=== PATIENT | female | born 1995 | race Caucasian/White ===

== ENCOUNTER 2018-10-03 13:23 | Emergency (ER) | payer OTHER ==
[2018-10-03 13:49] VITALS: TEMP 98.2
[2018-10-03] MEDS ORDERED: SODIUM CHLORIDE 0.9% 1,000 ML IV STA (13:50)
[2018-10-03] MEDS ORDERED: SODIUM CHLORIDE 0.9% 500 ML 500 ML IV STA (13:50)
[2018-10-03 14:40] LABS: Basophils # (A) 0.1 k/uL (0-0.2); Basophils % (A) 1 %; Eosinophils # (A) 0.2 k/uL (0-0.7); Eosinophils % (A) 4 %; HCT 39.6 % (34.0-46.0); HGB 12.9 gm/dL (11.4-16.0); Lymphocytes # (A) 1.5 k/uL (1.0-4.8); Lymphocytes % (A) 28 %; MCH 28.7 pg (25.0-35.0); MCHC 32.6 g/dL (31.0-37.0); MCV 88.2 fL (80.0-100.0); Mean Platelet Volume 6.5; Monocytes # (A) 0.4 k/uL (0-1.0); Monocytes % (A) 6 %; Neutrophils # (A) 3.3 k/uL (1.3-7.7); Neutrophils % (A) 60 %; Platelet Count 371 k/uL (150-450); RBC 4.49 m/uL (3.80-5.40); RDW 12.6 % (11.5-15.5); WBC 5.6 k/uL (3.8-10.6)
[2018-10-03 14:45] LABS: Appearance,Urine Clear (Clear); Bilirubin,Urine Negative (Negative); Blood,Urine Moderate (Negative); Color,Urine Light Red; Glucose,Urine (UA) Negative (Negative); Ketones,Urine Negative (Negative); Leukocyte Esterase,Urine Small (Negative); Nitrite,Urine Negative (Negative); PH, Urine 6.5 (5.0-8.0); Protein,Urine 1+ (Negative); RBC,Urine >182 /hpf (0-5); Specific Gravity,Urine 1.022 (1.001-1.035); Squamous Epithelial Cell,Urine 3 /hpf (0-4); Urobilinogen,Urine <2.0 mg/dL (<2.0); WBC,Urine 7 /hpf (0-5)
[2018-10-03 14:53] LABS: INR 0.9 (<1.2); Partial Thromboplastin Time 26.1 sec (22.0-30.0); Prothrombin Time 9.7 sec (9.0-12.0)
[2018-10-03 14:59] LABS: ALT 39 U/L (9-52); AST 37 U/L (14-36); African American GFR (CKD) >90 (>60 ml/min/1.73 sqM); Alkaline Phosphatase 51 U/L (38-126); Anion Gap 8 mmol/L; Blood Urea Nitrogen 12 mg/dL (7-17); Calcium 9.7 mg/dL (8.4-10.2); Carbon Dioxide 26 mmol/L (22-30); Chloride 106 mmol/L (98-107); Glucose 100 mg/dL (74-99); Potassium 4.3 mmol/L (3.5-5.1); Sodium 140 mmol/L (137-145); Total Bilirubin 0.2 mg/dL (0.2-1.3); Total Protein 6.7 g/dL (6.3-8.2)
--- NOTE | 2018-10-03 15:10 | XR ---
EXAMINATION TYPE: XR chest 2V DATE OF EXAM: 10/03/2018 COMPARISON: NONE HISTORY: Syncope TECHNIQUE: Frontal and lateral views of the chest are obtained. FINDINGS: There is no focal air space opacity, pleural effusion, or pneumothorax seen. The cardiac silhouette size is within normal limits. The osseous structures are intact. IMPRESSION: No acute cardiopulmonary process.
--- NOTE | 2018-10-03 15:17 | CT ---
EXAMINATION TYPE: CT brain jensen fox con DATE OF EXAM: 10/03/2018 COMPARISON: None HISTORY: 22-year-old female syncope CT DLP: 1323.9 mGycm Automated exposure control for dose reduction was used. Technique: Examination of the head was done in axial plane without intravenous contrast. Coronal and sagittal reconstructions performed. CT of the cervical spine was obtained in axial plane without intravenous injection of contrast mater ial. Coronal and sagittal reformatted images were obtained from the axial views for evaluation of f ractures, spinal alignment and canal. FINDINGS: Head: There is no evidence of acute intracranial hemorrhage, acute ischemic changes, mass, mass-effect, or extra-axial fluid collection. There is no effacement of cerebral sulci or basal subarachnoid cister ns. There is no hydrocephalus. There is no midline shift. Winter-white matter distinction is preserv ed. Rightward nasal septal deviation. Orbits and globes are intact. Paranasal sinuses and mastoid air rossy ls are pneumatized. Cervical spine: The alignment of the cervical spine is normal on coronal and reformatted images. There is no cranial vertebral abnormality. Fracture of the cervical spine is not seen. Reverse of the normal cervical frandy dosis probably positional. There is no central spinal canal stenosis. Possible dextro convex scoliosi s versus patient positioning. Sagittal and coronal reformatted images confirm above findings. COMBINED IMPRESSION: 1. No acute intracranial abnormality seen. 2. No acute fracture or malalignment of the cervical spine. Query dextroconvex scoliosis versus patie nt positioning.
[2018-10-03 15:51] VITALS: BP 122/76; PULSE 76; RESP 13
--- NOTE | 2018-10-03 15:51 | ED ---
Syncope HPI - General Chief Complaint: Syncope Stated Complaint: Fall, head injury Time Seen by Provider: 10/03/18 13:50 Source: patient Mode of arrival: ambulatory Limitations: no limitations - History of Present Illness Initial Comments: 22-year-old female presenting today for chief complaint syncope. Patient states she had a similar episode syncope when she was on her period within the last year. Patient states she was evaluated neurologically opposed to cardiovascularly. Patient states she has had previous MRIs and everything has been normal. Patient states she was sitting up on the mirror today just prior to arrival which she felt like she was going to pass out she saw blackness coming from the corners of her eyes and attempted to sit down however she fell hitting the right side of her head. Patient sates she awoke shortly after. Sta kimi she felt normal since she has slight headache. Patient denies a chest pain shortness breath dizziness headache nausea vomiting abdominal pain or any complaints prior to the syncopal episode. Denies experiencing any chest pain when working out. Patient denies any shortness of breath when exerting self. Patient denies any recent surgeries. Patient is not sure if this is related to her period. Denies any specific heavy vaginal bleeding. Remaining review of systems negative upon arrival patient appears well no signs of acute distress. Asymptomatic. - Related Data Allergies Allergy/AdvReac Type Severity Reaction Status Date / Time No Known Allergies Allergy Verified 10/03/18 13:48 Review of Systems ROS Statement: Those systems with pertinent positive or pertinent negative responses have been documented in the HPI. ROS Other: All systems not noted in ROS Statement are negative. Past Medical History Past Medical History: Asthma, Fibromyalgia Additional Past Medical History / Comment(s): ovarian cyst History of Any Multi-Drug Resistant Organisms: None Reported Additional Past Surgical History / Comment(s): wisdom teeth, dental implant Past Psychological History: No Psychological Hx Reported Smoking Status: Never smoker Past Alcohol Use History: Occasional Past Drug Use History: None Reported General Exam - General Exam Comments Initial Comments: General: The patient is awake and alert, in no distress, and does not appear acutely ill. Eye: +3 mm pupils are equal, round and reactive to light, extra-ocular movements are intact. No nystagmus. There is normal conjunctiva bilaterally. No signs of icterus. Ears, nose, mouth and throat: There are moist mucous membranes and no oral lesions. Neck: The neck is supple, there is no tenderness or JVD. Cardiovascular: There is a regular rate and rhythm. No murmur, rub or gallop is appreciated. Respiratory: Lungs are clear to auscultation, respirations are non-labored, breath sounds are equal. No wheezes, stridor, rales, or rhonchi. Gastrointestinal: Soft, non-distended, non-tender abdomen without masses or organomegaly noted. There is no rebound or guarding present. No CVA tenderness. Bowel sounds are unremarkable. Musculoskeletal: Normal ROM, no tenderness. Strength 5/5. Sensation intact. Radial and DP pulses equal bilaterally 2+. Neurological: A&O x 3. CN II-XII intact, There are no obvious motor or sensory deficits. Coordination appears grossly intact. Speech is normal. Skin: Skin is warm and dry and no rashes or lesions are noted. Psychiatric: Cooperative, appropriate mood & affect, normal judgment. Limitations: no limitations Course Vital Signs 10/03/18 10/03/18 10/03/18 13:43 14:20 14:30 Temperature 98.2 F Pulse Rate 85 76 Pulse Rate [ 72 Left] Respiratory 18 16 Rate Blood Pressure 111/78 117/84 Blood Pressure 112/73 [Left Arm Sitting] Blood Pressure 117/84 [Left Arm Standing] Blood Pressure 107/68 [Left Arm Supine] O2 Sat by Pulse 93 L 98 Oximetry 10/03/18 15:30 Temperature Pulse Rate 76 Pulse Rate [ Left] Respiratory 13 Rate Blood Pressure 122/76 Blood Pressure [Left Arm Sitting] Blood Pressure [Left Arm Standing] Blood Pressure [Left Arm Supine] O2 Sat by Pulse 98 Oximetry EKG Findings - EKG Comments: EKG Findings:: A 12-lead EKG was performed and shows the following: Rate is 77bpm, and rhythm is normal sinus. There are normal QRS complexes and normal R- wave progression. ST segments have no elevation or depression, and AL segments appear normal. AL interval 198 ms, QRS jainism 102 ms, QT/QTC 374/423 ms. EKG interpreted myself as well as my attending provider Dr. Noble/Dr. Ledbetter Medical Decision Making - Medical Decision Making Well-appearing 22-year-old female. Patient is currently menstruating. Patient states last time she was syncopal episode as well as treating as well. Patient blood pressure and heart rate within acceptable limits upon arrival. Patient has no complaints. Patient does have history of right-sided head injury. No focal neurological deficits. CT negative for acute intracranial process. As well as a C-spine for acute osseous injury. Patient is no radicular symptoms. EKG no acute findings. No evidence of Brugada or Mxzxb-Blcvmopoc-Bpjhr. No history of that within the family or history of juvenile due to cardiac so urce. Chest x-ray revealed no acute findings. There is no murmur on examination her lower extremity swelling. Patient's lungs are clear to auscultation. Patient has no positive findings on orthostatics. Patient is no abdominal pain or focal symptoms on examination. At this time is unclear the exact etiology patient's syncopal episode. May be due to menstruation. I recommended outpatient further evaluation including a Holter monitor. Patient verbalized understanding patient is agreeable and prefers discharge at this time. Patient was discharged appearing well. I did discuss and review findings provider Dr. Noble - Lab Data Result diagrams: 10/03/18 14:10 10/03/18 14:10 Lab Results 10/03/18 10/03/18 10/03/18 Range/Units 14:10 14:10 14:10 WBC 5.6 (3.8-10.6) k/uL RBC 4.49 (3.80-5.40) m/uL Hgb 12.9 (11.4-16.0) gm/dL Hct 39.6 (34.0-46.0) % MCV 88.2 (80.0-100.0) fL MCH 28.7 (25.0-35.0) pg MCHC 32.6 (31.0-37.0) g/dL RDW 12.6 (11.5-15.5) % Plt Count 371 (150-450) k/uL Neutrophils % 60 % Lymphocytes % 28 % Monocytes % 6 % Eosinophils % 4 % Basophils % 1 % Neutrophils # 3.3 (1.3-7.7) k/uL Lymphocytes # 1.5 (1.0-4.8) k/uL Monocytes # 0.4 (0-1.0) k/uL Eosinophils # 0.2 (0-0.7) k/uL Basophils # 0.1 (0-0.2) k/uL PT 9.7 (9.0-12.0) sec INR 0.9 (<1.2) APTT 26.1 (22.0-30.0) sec Sodium 140 (137-145) mmol/L Potassium 4.3 (3.5-5.1) mmol/L Chloride 106 (98-107) mmol/L Carbon Dioxide 26 (22-30) mmol/L Anion Gap 8 mmol/L BUN 12 (7-17) mg/dL Creatinine 0.57 (0.52-1.04) mg/dL Est GFR (CKD-EPI)AfAm >90 (>60 ml/min/1.73 sqM) Est GFR (CKD-EPI)NonAf >90 (>60 ml/min/1.73 sqM) Glucose 100 H (74-99) mg/dL Calcium 9.7 (8.4-10.2) mg/dL Magnesium 2.0 (1.6-2.3) mg/dL Total Bilirubin 0.2 (0.2-1.3) mg/dL AST 37 H (14-36) U/L ALT 39 (9-52) U/L Alkaline Phosphatase 51 (38-126) U/L Troponin I (0.000-0.034) ng/mL Total Protein 6.7 (6.3-8.2) g/dL Albumin 4.0 (3.5-5.0) g/dL Urine Color Urine Appearance (Clear) Urine pH (5.0-8.0) Ur Specific Ly[place] (1.001-1.035) Urine Protein (Negative) Urine Glucose (UA) (Negative) Urine Ketones (Negative) Urine Blood (Negative) Urine Nitrite (Negative) Urine Bilirubin (Negative) Urine Urobilinogen (<2.0) mg/dL Ur Leukocyte Esterase (Negative) Urine RBC (0-5) /hpf Urine WBC (0-5) /hpf Ur Squamous Epith Cells (0-4) /hpf Urine HCG, Qual (Not Detectd) 10/03/18 10/03/18 10/03/18 Range/Units 14:10 14:10 14:10 WBC (3.8-10.6) k/uL RBC (3.80-5.40) m/uL Hgb (11.4-16.0) gm/dL Hct (34.0-46.0) % MCV (80.0-100.0) fL MCH (25.0-35.0) pg MCHC (31.0-37.0) g/dL RDW (11.5-15.5) % Plt Count (150-450) k/uL Neutrophils % % Lymphocytes % % Monocytes % % Eosinophils % % Basophils % % Neutrophils # (1.3-7.7) k/uL Lymphocytes # (1.0-4.8) k/uL Monocytes # (0-1.0) k/uL Eosinophils # (0-0.7) k/uL Basophils # (0-0.2) k/uL PT (9.0-12.0) sec INR (<1.2) APTT (22.0-30.0) sec Sodium (137-145) mmol/L Potassium (3.5-5.1) mmol/L Chloride (98-107) mmol/L Carbon Dioxide (22-30) mmol/L Anion Gap mmol/L BUN (7-17) mg/dL Creatinine (0.52-1.04) mg/dL Est GFR (CKD-EPI)AfAm (>60 ml/min/1.73 sqM) Est GFR (CKD-EPI)NonAf (>60 ml/min/1.73 sqM) Glucose (74-99) mg/dL Calcium (8.4-10.2) mg/dL Magnesium (1.6-2.3) mg/dL Total Bilirubin (0.2-1.3) mg/dL AST (14-36) U/L ALT (9-52) U/L Alkaline Phosphatase (38-126) U/L Troponin I <0.012 (0.000-0.034) ng/mL Total Protein (6.3-8.2) g/dL Albumin (3.5-5.0) g/dL Urine Color Light Red Urine Appearance Clear (Clear) Urine pH 6.5 (5.0-8.0) Ur Specific Lyons 1.022 (1.001-1.035) Urine Protein 1+ H (Negative) Urine Glucose (UA) Negative (Negative) Urine Ketones Negative (Negative) Urine Blood Moderate H (Negative) Urine Nitrite Negative (Negative) Urine Bilirubin Negative (Negative) Urine Urobilinogen <2.0 (<2.0) mg/dL Ur Leukocyte Esterase Small H (Negative) Urine RBC >182 H (0-5) /hpf Urine WBC 7 H (0-5) /hpf Ur Squamous Epith Cells 3 (0-4) /hpf Urine HCG, Qual Not Detected (Not Detectd) Disposition Clinical Impression: Head injury, Syncope, Menstruation Disposition: HOME SELF-CARE Condition: Good Instructions (If sedation given, give patient instructions): Syncope (ED) Additional Instructions: Please increase fluids. Please follow-up with family doctor in the next 2 days. Please return to emergency room if the symptoms increase or worsen or for any other concerns-including another syncopal episode. Is patient prescribed a controlled substance at d/c from ED?: No Referrals: Nonstaff,Physician [Primary Care Provider] - 1-2 days Time of Disposition: 15:51
== END 2018-10-03 16:12 | disposition home or self-care (01) ==
LOC: EC 13:23
DX: S09.90XA Unspecified injury of head, initial encounter (principal); R55 Syncope and collapse; Z87.42 Personal history of other diseases of the female genital tract; Z98.890 Other specified postprocedural states; W01.10XA Fall on same level from slipping, tripping and stumbling with subsequent striking against unspecified object, initial encounter
CPT/HCPCS: 36415; 70450; 71046; 72125; 80053; 81001; 81025; 83735; 84484; 85025; 85610; 85730; 93005; 96360; 99284

== ENCOUNTER 2019-01-09 11:14 | Emergency (ER) | payer BC, OTHER ==
[2019-01-09 11:23] VITALS: RESP 18
[2019-01-09] MEDS ORDERED: SODIUM CHLORIDE 0.9% 1,000 ML IV STA (11:49)
[2019-01-09 12:49] LABS: Basophils # (A) 0.1 k/uL (0-0.2); Basophils % (A) 1 %; Eosinophils # (A) 0.2 k/uL (0-0.7); Eosinophils % (A) 3 %; HCT 37.7 % (34.0-46.0); HGB 12.2 gm/dL (11.4-16.0); Lymphocytes # (A) 1.9 k/uL (1.0-4.8); Lymphocytes % (A) 28 %; MCH 28.9 pg (25.0-35.0); MCHC 32.4 g/dL (31.0-37.0); MCV 89.2 fL (80.0-100.0); Mean Platelet Volume 6.9; Monocytes # (A) 0.3 k/uL (0-1.0); Monocytes % (A) 5 %; Neutrophils # (A) 4.2 k/uL (1.3-7.7); Neutrophils % (A) 62 %; Platelet Count 420 k/uL (150-450); RBC 4.23 m/uL (3.80-5.40); RDW 12.5 % (11.5-15.5); WBC 6.8 k/uL (3.8-10.6)
[2019-01-09 12:50] LABS: Appearance,Urine Cloudy (Clear); Bilirubin,Urine Negative (Negative); Blood,Urine Negative (Negative); Budding Yeast,Urine Few /hpf; Color,Urine Yellow; Glucose,Urine (UA) Negative (Negative); Ketones,Urine Negative (Negative); Leukocyte Esterase,Urine Negative (Negative); Mucus,Urine Occasional /hpf; Nitrite,Urine Negative (Negative); Protein,Urine Negative (Negative); Specific Gravity,Urine 1.022 (1.001-1.035); Squamous Epithelial Cell,Urine 2 /hpf (0-4); Urobilinogen,Urine <2.0 mg/dL (<2.0)
[2019-01-09 13:01] LABS: INR 0.9 (<1.2); Partial Thromboplastin Time 25.9 sec (22.0-30.0); Prothrombin Time 9.7 sec (9.0-12.0)
[2019-01-09 13:04] LABS: ALT 52 U/L (9-52); AST 32 U/L (14-36); African American GFR (CKD) >90 (>60 ml/min/1.73 sqM); Albumin 4.1 g/dL (3.5-5.0); Alkaline Phosphatase 57 U/L (38-126); Anion Gap 9 mmol/L; Blood Urea Nitrogen 14 mg/dL (7-17); Calcium 9.9 mg/dL (8.4-10.2); Carbon Dioxide 26 mmol/L (22-30); Chloride 103 mmol/L (98-107); Glucose 87 mg/dL (74-99); Potassium 4.3 mmol/L (3.5-5.1); Sodium 138 mmol/L (137-145); Total Bilirubin <0.1 mg/dL (0.2-1.3)
--- NOTE | 2019-01-09 13:10 | XR ---
EXAMINATION TYPE: XR chest 2V DATE OF EXAM: 01/09/2019 COMPARISON: 10/03/2018 HISTORY: Syncope. History of asthma TECHNIQUE: Frontal and lateral views of the chest are obtained. FINDINGS: There is no focal air space opacity, pleural effusion, or pneumothorax seen. The cardiac silhouette size is within normal limits. The osseous structures are intact. IMPRESSION: No acute cardiopulmonary process.
--- NOTE | 2019-01-09 13:46 | ED ---
General Adult HPI - General Chief complaint: Syncope Stated complaint: Syncope Source: EMS Mode of arrival: EMS Limitations: no limitations - History of Present Illness Initial comments: The patient is a 23-year-old female with past medical history of fibromyalgia and recurrent syncope who presents to the emergency room today for syncope. 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 She states that she started having a sensation that she was swaying back and forth. She went into the restroom and was washing her hands. The sensation got worse and she felt weakness in her lower extremities. States that they gave out on her and she slumped to the ground. It was not witnessed. She states that she was conscious throughout majority of it. Coworkers and came into the restroom and noted that she had twitching in her lower extremity. There is concern for seizure and therefore called EMS. The patient states that she has had 2 previous episodes for which she was evaluated at [facility]. States that she's had complete MRIs of her brain and spine without findings. She was told to follow-up with her neurologist. States that she had an appointment tomorrow however had canceled due to work. She was also supposed to follow up with a orthopedic specialist however has yet to. She states that during her 2 day stay at [facility] last year that they stated her syncope made be "due to her fibromyalgia". She denies any blunt head trauma from the episode. Denies any injuries to include pain in her extremities. Denies having any chest pain or shortness of breath previous episode. Her other syncopal episodes were related to menstruation. States that she just finished her menstrual cycle. Denies concern for . No family history of premature cardiac . Denies history of DVTs or PEs. No calf pain or swelling. Denies any nausea or vomiting, unilateral numbness or weakness. No visual changes or headache. There are no other alleviating, precipitating or modifying factors - Related Data Home Medications Medication Instructions Recorded Confirmed Albuterol Sulfate [Ventolin HFA] 1 - 2 puff INHALATION RT-Q6H PRN 01/09/19 01/09/19 Escitalopram Oxalate [Lexapro] 40 mg PO HS 01/09/19 01/09/19 Fluticasone/Salmeterol [Advair 1 puff INHALATION RT-BID 01/09/19 01/09/19 250-50 Diskus] Lessina 1 tab PO HS 01/09/19 01/09/19 Magnesium 200 mg PO HS 01/09/19 01/09/19 Ubidecarenone [Co Q-10] 100 mg PO HS 01/09/19 01/09/19 Vitamin B Complex 1 cap PO HS 01/09/19 01/09/19 busPIRone HCl [Buspar] 10 mg PO HS 01/09/19 01/09/19 Allergies Allergy/AdvReac Type Severity Reaction Status Date / Time latex AdvReac Rash/Hives Verified 01/09/19 12:11 Review of Systems ROS Statement: Those systems with pertinent positive or pertinent negative responses have been documented in the HPI. ROS Other: All systems not noted in ROS Statement are negative. Past Medical History Past Medical History: Asthma, Fibromyalgia Additional Past Medical History / Comment(s): ovarian cyst History of Any Multi-Drug Resistant Organisms: None Reported Additional Past Surgical History / Comment(s): wisdom teeth, dental implant Past Psychological History: No Psychological Hx Reported Smoking Status: Never smoker Past Alcohol Use History: Occasional Past Drug Use History: None Reported General Exam Limitations: no limitations General appearance: alert, in no apparent distress Head exam: Present: atraumatic, normocephalic, normal inspection Eye exam: Present: normal appearance, PERRL, EOMI. Absent: scleral icterus, conjunctival injection, periorbital swelling ENT exam: Present: normal exam, mucous membranes moist Neck exam: Present: normal inspection. Absent: tenderness, meningismus, lymph adenopathy Respiratory exam: Present: normal lung sounds bilaterally. Absent: respiratory distress, wheezes, rales, rhonchi, stridor Cardiovascular Exam: Present: regular rate, normal rhythm, normal heart sounds. Absent: systolic murmur, diastolic murmur, rubs, gallop, clicks GI/Abdominal exam: Present: soft, normal bowel sounds. Absent: distended, tenderness, guarding, rebound, rigid Extremities exam: Present: normal inspection, full ROM, normal capillary refill. Absent: tenderness, pedal edema, joint swelling, calf tenderness Back exam: Present: normal inspection Neurological exam: Present: alert, oriented X3, CN II-XII intact Psychiatric exam: Present: normal affect, normal mood Skin exam: Present: warm, dry, intact, normal color. Absent: rash Course Vital Signs 01/09/19 01/09/19 11:19 14:02 Temperature 98.5 F 98.4 F Pulse Rate 81 75 Respiratory 18 18 Rate Blood Pressure 116/82 116/74 O2 Sat by Pulse 98 100 Oximetry EKG Findings - EKG Comments: EKG Findings:: EKG demonstrates a normal sinus rhythm with a ventricular rate of 68. [place] interval 188. QRS 98. QTC 425. There are no acute ST segment elevations or depressions. No signs of [place] Parkinson White or Brugada syndrome Medical Decision Making - Medical Decision Making Upon arrival the patient was placed into room 23. She was hooked up to continuous pulse ox and cardiac monitoring. A thorough history and physical exam was performed. 12-lead EKG was performed patient which demonstrated no acute findings. Laboratory studies were conducted. I did provide her with a liter bolus of normal saline. She was sent for a chest x-ray. Laboratory studies demonstrated no acute findings. Occasional mucous and few budding yeast in the urine. Extensor demonstrated no acute cardio ponder process. I did review with the patient. She states she feels much improved at this time. She'll be discharged home and needs to follow up with her neurologist at a sooner appointment. She should also be evaluated by a orthopedic specialist. I will provide her with the [facility] phone number. If the patient has any new or worsening symptoms she should return to the emergency room. She will need an echo and Holter monitoring. The patient was discharged in stable condition - Lab Data Result diagrams: 01/09/19 11:44 01/09/19 11:44 Lab Results 01/09/19 01/09/19 01/09/19 Range/Units 11:44 11:44 11:44 WBC 6.8 (3.8-10.6) k/uL RBC 4.23 (3.80-5.40) m/uL Hgb 12.2 (11.4-16.0) gm/dL Hct 37.7 (34.0-46.0) % MCV 89.2 (80.0-100.0) fL MCH 28.9 (25.0-35.0) pg MCHC 32.4 (31.0-37.0) g/dL RDW 12.5 (11.5-15.5) % Plt Count 420 (150-450) k/uL Neutrophils % 62 % Lymphocytes % 28 % Monocytes % 5 % Eosinophils % 3 % Basophils % 1 % Neutrophils # 4.2 (1.3-7.7) k/uL Lymphocytes # 1.9 (1.0-4.8) k/uL Monocytes # 0.3 (0-1.0) k/uL Eosinophils # 0.2 (0-0.7) k/uL Basophils # 0.1 (0-0.2) k/uL PT 9.7 (9.0-12.0) sec INR 0.9 (<1.2) APTT 25.9 (22.0-30.0) sec Sodium 138 (137-145) mmol/L Potassium 4.3 (3.5-5.1) mmol/L Chloride 103 (98-107) mmol/L Carbon Dioxide 26 (22-30) mmol/L Anion Gap 9 mmol/L BUN 14 (7-17) mg/dL Creatinine 0.57 (0.52-1.04) mg/dL Est GFR (CKD-EPI)AfAm >90 (>60 ml/min/1.73 sqM) Est GFR (CKD-EPI)NonAf >90 (>60 ml/min/1.73 sqM) Glucose 87 (74-99) mg/dL Calcium 9.9 (8.4-10.2) mg/dL Total Bilirubin <0.1 L (0.2-1.3) mg/dL AST 32 (14-36) U/L ALT 52 (9-52) U/L Alkaline Phosphatase 57 (38-126) U/L Total Protein 7.0 (6.3-8.2) g/dL Albumin 4.1 (3.5-5.0) g/dL Urine Color Urine Appearance (Clear) Urine pH (5.0-8.0) Ur Specific [place] (1.001-1.035) Urine Protein (Negative) Urine Glucose (UA) (Negative) Urine Ketones (Negative) Urine Blood (Negative) Urine Nitrite (Negative) Urine Bilirubin (Negative) Urine Urobilinogen (<2.0) mg/dL Ur Leukocyte Esterase (Negative) Ur Squamous Epith Cells (0-4) /hpf Urine Mucus (None) /hpf Urine Yeast (Budding) (None) /hpf Urine HCG, Qual (Not Detectd) 01/09/19 01/09/19 Range/Units 12:34 12:34 WBC (3.8-10.6) k/uL RBC (3.80-5.40) m/uL Hgb (11.4-16.0) gm/dL Hct (34.0-46.0) % MCV (80.0-100.0) fL MCH (25.0-35.0) pg MCHC (31.0-37.0) g/dL RDW (11.5-15.5) % Plt Count (150-450) k/uL Neutrophils % % Lymphocytes % % Monocytes % % Eosinophils % % Basophils % % Neutrophils # (1.3-7.7) k/uL Lymphocytes # (1.0-4.8) k/uL Monocytes # (0-1.0) k/uL Eosinophils # (0-0.7) k/uL Basophils # (0-0.2) k/uL PT (9.0-12.0) sec INR (<1.2) APTT (22.0-30.0) sec Sodium (137-145) mmol/L Potassium (3.5-5.1) mmol/L Chloride (98-107) mmol/L Carbon Dioxide (22-30) mmol/L Anion Gap mmol/L BUN (7-17) mg/dL Creatinine (0.52-1.04) mg/dL Est GFR (CKD-EPI)AfAm (>60 ml/min/1.73 sqM) Est GFR (CKD-EPI)NonAf (>60 ml/min/1.73 sqM) Glucose (74-99) mg/dL Calcium (8.4-10.2) mg/dL Total Bilirubin (0.2-1.3) mg/dL AST (14-36) U/L ALT (9-52) U/L Alkaline Phosphatase (38-126) U/L Total Protein (6.3-8.2) g/dL Albumin (3.5-5.0) g/dL Urine Color Yellow Urine Appearance Cloudy H (Clear) Urine pH 7.0 (5.0-8.0) Ur Specific [place] 1.022 (1.001-1.035) Urine Protein Negative (Negative) Urine Glucose (UA) Negative (Negative) Urine Ketones Negative (Negative) Urine Blood Negative (Negative) Urine Nitrite Negative (Negative) Urine Bilirubin Negative (Negative) Urine Urobilinogen <2.0 (<2.0) mg/dL Ur Leukocyte Esterase Negative (Negative) Ur Squamous Epith Cells 2 (0-4) /hpf Urine Mucus Occasional H (None) /hpf Urine Yeast (Budding) Few H (None) /hpf Urine HCG, Qual Not Detected (Not Detectd) Disposition Clinical Impression: Syncope Disposition: HOME SELF-CARE Condition: Stable Instructions (If sedation given, give patient instructions): Syncope (ED) Additional Instructions: Please follow-up with your primary care doctor within 2-4 days. You need to see a orthopedic specialist and have an echo and Holter monitoring performed. Please also follow up with your neurologist. Return to the emergency room for any new or worsening symptoms Is patient prescribed a controlled substance at d/c from ED?: No Referrals: Nonstaff,Physician [Primary Care Provider] - 1-2 days [facility] [Provider Group] - 1-2 days Time of Disposition: 13:46
[2019-01-09 14:03] VITALS: BP 116/74; PULSE 75; TEMP 98.4
== END 2019-01-09 14:04 | disposition home or self-care (01) ==
LOC: EC 11:14
DX: R55 Syncope and collapse (principal); M79.7 Fibromyalgia; J45.909 Unspecified asthma, uncomplicated; Z79.1 Long term (current) use of non-steroidal anti-inflammatories (NSAID); Z79.3 Long term (current) use of hormonal contraceptives; Z79.51 Long term (current) use of inhaled steroids; Z79.899 Other long term (current) drug therapy; Z91.040 Latex allergy status
CPT/HCPCS: 36415; 71046; 80053; 81001; 81025; 85025; 85610; 85730; 93005; 96360; 96361; 99285

== ENCOUNTER 2019-02-17 11:32 | Emergency (ER) | payer BC, OTHER ==
[2019-02-17 12:10] VITALS: PULSE 73; RESP 20; TEMP 97.6
[2019-02-17] MEDS ORDERED: MECLIZINE 12.5 MG TAB PO STA (12:21)
[2019-02-17 13:01] LABS: Appearance,Urine Clear (Clear); Bacteria,Urine Rare /hpf; Bilirubin,Urine Negative (Negative); Blood,Urine Negative (Negative); Color,Urine Yellow; Glucose,Urine (UA) Negative (Negative); Ketones,Urine Negative (Negative); Leukocyte Esterase,Urine Trace (Negative); Mucus,Urine Rare /hpf; Nitrite,Urine Negative (Negative); PH, Urine 6.5 (5.0-8.0); Protein,Urine Negative (Negative); RBC,Urine 1 /hpf (0-5); Specific Gravity,Urine 1.026 (1.001-1.035); Squamous Epithelial Cell,Urine 7 /hpf (0-4); Urobilinogen,Urine <2.0 mg/dL (<2.0); WBC,Urine 1 /hpf (0-5)
--- NOTE | 2019-02-17 13:02 | XR ---
EXAMINATION TYPE: XR chest 2V DATE OF EXAM: 02/17/2019 COMPARISON: 01/09/2019 HISTORY: Chest pain. History of asthma. Low blood pressure. TECHNIQUE: Frontal and lateral views of the chest are obtained. FINDINGS: There is no focal air space opacity, pleural effusion, or pneumothorax seen. The cardiac silhouette size is within normal limits. The osseous structures are intact. IMPRESSION: No acute cardiopulmonary process.
--- NOTE | 2019-02-17 13:06 | ED ---
General Adult HPI - General Chief complaint: Dizziness Stated complaint: low blood pressure/chest pain Time Seen by Provider: 02/17/19 11:44 Source: patient, RN notes reviewed Mode of arrival: ambulatory Limitations: no limitations - History of Present Illness Initial comments: 23-year-old female with a past medical history of ovarian cysts presents to the emergency department for a chief complaint of lightheadedness. Patient states that she was in the shower and started to feel lightheaded. States she checked her blood pressure and it was 80/50. Patient states she has been having a "thumping" heartbeat and feeling like she has a flutter in her heart. States that she has had some episodes of syncope over the past several months. States she has an appointment with a [facility] operator on . However as she checked her blood pressure and it was low she wanted to be reevaluated in the emergency department. States she is nontender at this time although has some minimal lightheadedness and does feel her heart thumping. Denies chest pain otherwise. Denies shortness of breath.Patient has no other complaints at this time including shortness of breath, chest pain, abdominal pain, nausea or vomiting, headache, or visual changes. - Related Data Home Medications Medication Instructions Recorded Confirmed Escitalopram Oxalate [Lexapro] 20 mg PO W/SUPPER 01/09/19 02/17/19 Magnesium 200 mg PO HS 01/09/19 02/17/19 Ubidecarenone [Co Q-10] 100 mg PO HS 01/09/19 02/17/19 busPIRone HCl [Buspar] 10 mg PO W/SUPPER 01/09/19 02/17/19 Fluticasone Propion/Salmeterol 1 puff INHALATION RT-BID 02/17/19 02/17/19 [Wixela 250-50 Inhub] Vienva 0.1mg/0.02mg 1 tab PO W/SUPPER 02/17/19 02/17/19 buPROPion XL [Wellbutrin Xl] 150 mg PO W/SUPPER 02/17/19 02/17/19 Allergies Allergy/AdvReac Type Severity Reaction Status Date / Time latex AdvReac Rash/Hives Verified 02/17/19 12:30 Review of Systems ROS Statement: Those systems with pertinent positive or pertinent negative responses have been documented in the HPI. ROS Other: All systems not noted in ROS Statement are negative. Past Medical History Past Medical History: Asthma, Fibromyalgia Additional Past Medical History / Comment(s): ovarian cyst History of Any Multi-Drug Resistant Organisms: None Reported Additional Past Surgical History / Comment(s): wisdom teeth, dental implant Past Psychological History: No Psychological Hx Reported Smoking Status: Never smoker Past Alcohol Use History: Occasional Past Drug Use History: None Reported General Exam Limitations: no limitations General appearance: alert, in no apparent distress Head exam: Present: atraumatic, normocephalic, normal inspection Eye exam: Present: normal appearance, PERRL, EOMI. Absent: scleral icterus, conjunctival injection, periorbital swelling ENT exam: Present: normal exam, mucous membranes moist Neck exam: Present: normal inspection, full ROM. Absent: tenderness, meningismus, lymphadenopathy Respiratory exam: Present: normal lung sounds bilaterally. Absent: respiratory distress, wheezes, rales, rhonchi, stridor Cardiovascular Exam: Present: regular rate, normal rhythm, normal heart sounds. Absent: systolic murmur, diastolic murmur, rubs, gallop, clicks Neurological exam: Present: alert Psychiatric exam: Present: normal affect, normal mood Course Vital Signs 02/17/19 02/17/19 11:36 12:06 Temperature 98.1 F 97.6 F Pulse Rate 84 73 Respiratory 19 20 Rate Blood Pressure 121/75 114/57 O2 Sat by Pulse 96 98 Oximetry EKG Findings - EKG Comments: EKG Findings:: Normal sinus rhythm, ventricular rate 68, RI interval 172, QTc 416 Medical Decision Making - Medical Decision Making 23-year-old presents for feelings of lightheadedness after being in the shower. Checked her blood pressure and was hypotensive. Patient likely had vasovagal episode. Patient's only chest pain as a "pounding heartbeat". Shortness of breath. Patient had blood panel workup here for syncope last month which appeared normal. Therefore blood work was not obtained today which patient did agree with. EKG showed a normal sinus rhythm. Chest x-ray showed no acute cardiopulmonary process. Urinalysis was remarkable. HCG negative. Patient reevaluated, feeling much better. Patient will be discharged home. She was referred to cardiology during her last visit and has an appointment on so will follow-up with them. She does agree to return if she has any worsening symptoms. - Lab Data Lab Results 02/17/19 02/17/19 Range/Units 12:20 12:20 Urine Color Yellow Urine Appearance Clear (Clear) Urine pH 6.5 (5.0-8.0) Ur Specific [place] 1.026 (1.001-1.035) Urine Protein Negative (Negative) Urine Glucose (UA) Negative (Negative) Urine Ketones Negative (Negative) Urine Blood Negative (Negative) Urine Nitrite Negative (Negative) Urine Bilirubin Negative (Negative) Urine Urobilinogen <2.0 (<2.0) mg/dL Ur Leukocyte Esterase Trace H (Negative) Urine RBC 1 (0-5) /hpf Urine WBC 1 (0-5) /hpf Ur Squamous Epith Cells 7 H (0-4) /hpf Urine Bacteria Rare H (None) /hpf Urine Mucus Rare H (None) /hpf Urine HCG, Qual Not Detected (Not Detectd) Disposition Clinical Impression: Vasovagal episode Disposition: HOME SELF-CARE Condition: Good Instructions (If sedation given, give patient instructions): Near Syncope (ED), Dizziness (ED) Additional Instructions: Please drink plenty of fluids. Follow-up with your [facility] operator on at your scheduled appointment. If you have any worsening symptoms return to the emergency department. Is patient prescribed a controlled substance at d/c from ED?: No Referrals: Nonstaff,Physician [Primary Care Provider] - 1-2 days Time of Disposition: 13:19
[2019-02-17 13:28] VITALS: BP 106/63
== END 2019-02-17 13:28 | disposition home or self-care (01) ==
LOC: EC 11:32
DX: I95.9 Hypotension, unspecified (principal); R07.9 Chest pain, unspecified; R06.02 Shortness of breath; J45.909 Unspecified asthma, uncomplicated; M79.7 Fibromyalgia; Z79.899 Other long term (current) drug therapy; Z91.040 Latex allergy status; Z87.42 Personal history of other diseases of the female genital tract
CPT/HCPCS: 71046; 81001; 81025; 93005; 99284

== ENCOUNTER 2019-05-29 22:19 | Emergency (ER) | payer OTHER ==
[2019-05-29] MEDS ORDERED: SODIUM CHLORIDE 0.9% 1,000 ML IV STA (22:49)
[2019-05-29 23:25] LABS: Appearance,Urine Clear (Clear); Basophils # (A) 0.1 k/uL (0-0.2); Basophils % (A) 1 %; Bilirubin,Urine Negative (Negative); Blood,Urine Negative (Negative); Color,Urine Yellow; Eosinophils # (A) 0.2 k/uL (0-0.7); Eosinophils % (A) 2 %; Glucose,Urine (UA) Negative (Negative); HCT 38.5 % (34.0-46.0); HGB 12.8 gm/dL (11.4-16.0); Ketones,Urine Negative (Negative); Leukocyte Esterase,Urine Negative (Negative); Lymphocytes # (A) 2.5 k/uL (1.0-4.8); Lymphocytes % (A) 28 %; MCH 29.3 pg (25.0-35.0); MCHC 33.1 g/dL (31.0-37.0); MCV 88.6 fL (80.0-100.0); Monocytes # (A) 0.4 k/uL (0-1.0); Monocytes % (A) 5 %; Neutrophils # (A) 5.6 k/uL (1.3-7.7); Neutrophils % (A) 63 %; Nitrite,Urine Negative (Negative); Platelet Count 318 k/uL (150-450); Protein,Urine Negative (Negative); RBC 4.35 m/uL (3.80-5.40); RDW 12.4 % (11.5-15.5); Specific Gravity,Urine 1.028 (1.001-1.035); Urobilinogen,Urine <2.0 mg/dL (<2.0)
[2019-05-29 23:37] LABS: ALT 33 U/L (4-34); AST 32 U/L (14-36); African American GFR (CKD) >90 (>60 ml/min/1.73 sqM); Albumin 3.9 g/dL (3.5-5.0); Alkaline Phosphatase 69 U/L (38-126); Anion Gap 8 mmol/L; Blood Urea Nitrogen 16 mg/dL (7-17); Calcium 9.7 mg/dL (8.4-10.2); Carbon Dioxide 26 mmol/L (22-30); Chloride 103 mmol/L (98-107); Glucose 119 mg/dL (74-99); Non-African American GFR(CKD) >90 (>60 ml/min/1.73 sqM); Potassium 3.8 mmol/L (3.5-5.1); Sodium 137 mmol/L (137-145); Total Bilirubin 0.2 mg/dL (0.2-1.3); Total Protein 6.7 g/dL (6.3-8.2)
--- NOTE | 2019-05-30 00:36 | US ---
EXAMINATION TYPE: US abdomen limited DATE OF EXAM: 05/30/2019 COMPARISON: NONE CLINICAL HISTORY: abdominal pain, RUQ, hx gallbladder, RLQ . Abdominal pain x 4 days. EXAM MEASUREMENTS: Liver Length: 15.7 cm Gallbladder Wall: GB partially contracted, wall not measured CBD: 0.32 cm Right Kidney: 11.1 x 5.7 x 3.8 cm *Patient gassy. Pancreas: No abnormalities seen at this time. Liver: Hyperechoic area seen measurin.6 x 1.3 x 1.0 cm. Gallbladder: Appears partially contracted. Evidence for sonographic Guido's sign: No CBD: Appears to be wnl Right Kidney: No hydronephrosis or masses seen IMPRESSION: No gallstones or dilated ducts. Hyperechoic small focus in the liver is probably a hemangioma.
--- NOTE | 2019-05-30 00:42 | US ---
EXAMINATION TYPE: US abdomen APPY DATE OF EXAM: 05/30/2019 COMPARISON: NONE CLINICAL HISTORY: RLQ pain. RLQ pain x 4 days. APPENDIX Tubular structure is seen in the RLQ measuring 6.2 mm. Normal appendix AP Diameter is < 6 mm from outer wall to outer wall. This area does not appear to com press. Is there inflammatory changes or free fluid present: Hypoechoic area with hyperechoic center and vas cular hilum is seen measurin.2 x 1.2 x 0.9 cm. IMPRESSION: Lymph node is demonstrated. No evidence of a thickened appendix. Tubular structure seen that could be a normal appendix.
--- NOTE | 2019-05-30 00:49 | US ---
EXAMINATION TYPE: US transvaginal DATE OF EXAM: 05/30/2019 COMPARISON: NONE CLINICAL HISTORY: rlq pain. Pain x 4 days. Hx ovarian cyst and PID. Patient on oral contraceptive. . TECHNIQUE: Transvaginal (TV). Date of LMP: 05/21/2019 EXAM MEASUREMENTS: Uterus: 6.3 x 3.8 x 2.8 cm Endometrial Stripe: 0.42 cm Right Ovary: 2.4 x 2.1 x 1.3 cm Left Ovary: Not visualized 1. Uterus: Anteverted Appears slightly heterogeneous. 2. Endometrium: Measures 0.42 cm. 3. Right Ovary: Cluster of hypoechoic areas measurin.3 x 1.0 x 1.5 cm. Arterial waveform is show n. Limited venous waveform. Venous waveform not definitely shown. 4. Left Ovary: Not seen 5. Bilateral Adnexa: Appear to be wnl. 6. Posterior cul-de-sac: Appears to be wnl. IMPRESSION: No adnexal mass or free fluid. No evidence of ovarian torsion. Normal uterus. Left ovary not seen.
--- NOTE | 2019-05-30 01:20 | ED ---
Abdominal Pain HPI - General Chief Complaint: Abdominal Pain Stated Complaint: URQ Pain Time Seen by Provider: 05/29/19 22:25 Source: patient, family Mode of arrival: ambulatory Limitations: no limitations - History of Present Illness Initial Comments: The patient is a 23-year-old female with past history of asthma, fibromyalgia, neurocardiogenic syncope who presents to the emergency department with reported right upper quadrant abdominal pain and right lower quadrant abdominal pain. She states the symptoms have been present since Sunday. She has a history of gallbladder disease in the past and is unsure if this is consistent with it. Pain became severe tonight after she ate pizza. She reports to having foul- smelling, loose watery stools. She was recently on antibiotics which she finished this past weekend. She was taking Keflex. She denies history of C. diff. Denies ripping or tearing sensation to her back. Denies any changes in her urination to include dysuria, hematuria the voiding. Denies melanotic stools or hematochezia. No fevers or chills. Also reports to right lower quadrant pain. States she has a history of cysts. Denies concern for . No abnormal vaginal bleeding or discharge. There are no other alleviating, precipitating or modifying factors - Related Data Home Medications Medication Instructions Recorded Confirmed Escitalopram Oxalate [Lexapro] 20 mg PO W/SUPPER 01/09/19 02/17/19 Magnesium 200 mg PO HS 01/09/19 02/17/19 Ubidecarenone [Co Q-10] 100 mg PO HS 01/09/19 02/17/19 busPIRone HCl [Buspar] 10 mg PO W/SUPPER 01/09/19 02/17/19 Fluticasone Propion/Salmeterol 1 puff INHALATION RT-BID 02/17/19 02/17/19 [Wixela 250-50 Inhub] Vienva 0.1mg/0.02mg 1 tab PO W/SUPPER 02/17/19 02/17/19 buPROPion XL [Wellbutrin Xl] 150 mg PO W/SUPPER 02/17/19 02/17/19 Allergies Allergy/AdvReac Type Severity Reaction Status Date / Time latex AdvReac Rash/Hives Verified 02/17/19 12:30 Review of Systems ROS Statement: Those systems with pertinent positive or pertinent negative responses have been documented in the HPI. ROS Other: All systems not noted in ROS Statement are negative. Past Medical History Past Medical History: Asthma, Fibromyalgia Additional Past Medical History / Comment(s): ovarian cyst, neurocardogenic syncopy History of Any Multi-Drug Resistant Organisms: None Reported Additional Past Surgical History / Comment(s): wisdom teeth, dental implant Past Psychological History: Anxiety, Depression Smoking Status: Never smoker Past Alcohol Use History: Occasional Past Drug Use History: None Reported General Exam Limitations: no limitations General appearance: alert, in no apparent distress Head exam: Present: atraumatic, normocephalic, normal inspection Eye exam: Present: normal appearance, PERRL, EOMI. Absent: scleral icterus, conjunctival injection, periorbital swelling ENT exam: Present: normal exam, mucous membranes moist Neck exam: Present: normal inspection. Absent: tenderness, meningismus, lymphadenopathy Respiratory exam: Present: normal lung sounds bilaterally. Absent: respiratory distress, wheezes, rales, rhonchi, stridor Cardiovascular Exam: Present: regular rate, normal rhythm, normal heart sounds. Absent: systolic murmur, diastolic murmur, rubs, gallop, clicks GI/Abdominal exam: Present: soft, tenderness (RUQ), normal bowel sounds. Absent: distended, guarding, rebound, rigid Extremities exam: Present: normal inspection, full ROM, normal capillary refill. Absent: tenderness, pedal edema, joint swelling, calf tenderness Back exam: Present: normal inspection Neurological exam: Present: alert, oriented X3, CN II-XII intact Psychiatric exam: Present: normal affect, normal mood Skin exam: Present: warm, dry, intact, normal color. Absent: rash Course Vital Signs 05/29/19 05/30/19 05/30/19 22:23 00:44 01:24 Temperature 97.6 F 98.7 F Pulse Rate 81 76 61 Respiratory 19 18 19 Rate Blood Pressure 127/83 121/83 120/84 O2 Sat by Pulse 100 98 98 Oximetry Medical Decision Making - Medical Decision Making Upon arrival the patient is placed in room 17. A thorough history and physical exam is performed. She is offered pain and nausea medication however she refuses. Peripheral IV was established. We did conduct laboratory studies. Laboratory studies are essentially unremarkable. Urinalysis is negative as well as an hCG. Patient was sent for an ultrasound of her gallbladder, right lower q uadrant and pelvis. Ultrasound are unremarkable for, her disease, signs of acute appendicitis or torsion. I discussed results with the patient. She is unable to give me a stool sample. I did discuss diagnosis, differential and treatment options. I did recommend that she follow up with her primary care doctor in order to have an EGD, HIDA scan and stool studies performed. The patient was given a cup for stool sample collection at home. If she has any new or worsening symptoms she should return to the emergency room. I did recommend a low fat diet. Patient understood this. She is discharged home in stable condition. - Lab Data Result diagrams: 05/29/19 23:09 05/29/19 23:09 Lab Results 05/29/19 05/29/19 05/29/19 Range/Units 23:09 23:09 23:09 WBC 9.0 (3.8-10.6) k/uL RBC 4.35 (3.80-5.40) m/uL Hgb 12.8 (11.4-16.0) gm/dL Hct 38.5 (34.0-46.0) % MCV 88.6 (80.0-100.0) fL MCH 29.3 (25.0-35.0) pg MCHC 33.1 (31.0-37.0) g/dL RDW 12.4 (11.5-15.5) % Plt Count 318 (150-450) k/uL Neutrophils % 63 % Lymphocytes % 28 % Monocytes % 5 % Eosinophils % 2 % Basophils % 1 % Neutrophils # 5.6 (1.3-7.7) k/uL Lymphocytes # 2.5 (1.0-4.8) k/uL Monocytes # 0.4 (0-1.0) k/uL Eosinophils # 0.2 (0-0.7) k/uL Basophils # 0.1 (0-0.2) k/uL Sodium 137 (137-145) mmol/L Potassium 3.8 (3.5-5.1) mmol/L Chloride 103 (98-107) mmol/L Carbon Dioxide 26 (22-30) mmol/L Anion Gap 8 mmol/L BUN 16 (7-17) mg/dL Creatinine 0.61 (0.52-1.04) mg/dL Est GFR (CKD-EPI)AfAm >90 (>60 ml/min/1.73 sqM) Est GFR (CKD-EPI)NonAf >90 (>60 ml/min/1.73 sqM) Glucose 119 H (74-99) mg/dL Plasma Lactic Acid Ag (0.7-2.0) mmol/L Calcium 9.7 (8.4-10.2) mg/dL Total Bilirubin 0.2 (0.2-1.3) mg/dL AST 32 (14-36) U/L ALT 33 (4-34) U/L Alkaline Phosphatase 69 (38-126) U/L Total Protein 6.7 (6.3-8.2) g/dL Albumin 3.9 (3.5-5.0) g/dL Lipase 142 (23-300) U/L Urine Color Urine Appearance (Clear) Urine pH (5.0-8.0) Ur Specific [place] (1.001-1.035) Urine Protein (Negative) Urine Glucose (UA) (Negative) Urine Ketones (Negative) Urine Blood (Negative) Urine Nitrite (Negative) Urine Bilirubin (Negative) Urine Urobilinogen (<2.0) mg/dL Ur Leukocyte Esterase (Negative) Urine HCG, Qual Not Detected (Not Detectd) 05/29/19 05/29/19 Range/Units 23:09 23:09 WBC (3.8-10.6) k/uL RBC (3.80-5.40) m/uL Hgb (11.4-16.0) gm/dL Hct (34.0-46.0) % MCV (80.0-100.0) fL MCH (25.0-35.0) pg MCHC (31.0-37.0) g/dL RDW (11.5-15.5) % Plt Count (150-450) k/uL Neutrophils % % Lymphocytes % % Monocytes % % Eosinophils % % Basophils % % Neutrophils # (1.3-7.7) k/uL Lymphocytes # (1.0-4.8) k/uL Monocytes # (0-1.0) k/uL Eosinophils # (0-0.7) k/uL Basophils # (0-0.2) k/uL Sodium (137-145) mmol/L Potassium (3.5-5.1) mmol/L Chloride (98-107) mmol/L Carbon Dioxide (22-30) mmol/L Anion Gap mmol/L BUN (7-17) mg/dL Creatinine (0.52-1.04) mg/dL Est GFR (CKD-EPI)AfAm (>60 ml/min/1.73 sqM) Est GFR (CKD-EPI)NonAf (>60 ml/min/1.73 sqM) Glucose (74-99) mg/dL Plasma Lactic Acid Ag 1.3 (0.7-2.0) mmol/L Calcium (8.4-10.2) mg/dL Total Bilirubin (0.2-1.3) mg/dL AST (14-36) U/L ALT (4-34) U/L Alkaline Phosphatase (38-126) U/L Total Protein (6.3-8.2) g/dL Albumin (3.5-5.0) g/dL Lipase (23-300) U/L Urine Color Yellow Urine Appearance Clear (Clear) Urine pH 6.0 (5.0-8.0) Ur Specific [place] 1.028 (1.001-1.035) Urine Protein Negative (Negative) Urine Glucose (UA) Negative (Negative) Urine Ketones Negative (Negative) Urine Blood Negative (Negative) Urine Nitrite Negative (Negative) Urine Bilirubin Negative (Negative) Urine Urobilinogen <2.0 (<2.0) mg/dL Ur Leukocyte Esterase Negative (Negative) Urine HCG, Qual (Not Detectd) - EKG Data EKG Comments: EKG demonstrates normal sinus rhythm with a ventricular rate of 74. AL interval 198. QRS 80. QTC of 439. No acute ST segment elevations or depressions concerning for ischemic changes. No signs of Murru-Uuqoephil-Dduwp or Brugada syndrome. Disposition Clinical Impression: Epigastric abdominal pain Disposition: HOME SELF-CARE Condition: Stable Instructions (If sedation given, give patient instructions): Abdominal Pain (ED) Additional Instructions: Please follow-up with your primary care doctor. I recommend a HIDA scan and an EGD. Return to the emergency room for any new worsening symptoms. Please eat foods that are low in fat Is patient prescribed a controlled substance at d/c from ED?: No Referrals: Nonstaff,Physician [Primary Care Provider] - 1-2 days Time of Disposition: 01:20
[2019-05-30 01:33] VITALS: BP 120/84; PULSE 61; RESP 19; TEMP 98.7
== END 2019-05-30 01:24 | disposition home or self-care (01) ==
LOC: EC 22:19
DX: R10.13 Epigastric pain (principal); J45.909 Unspecified asthma, uncomplicated; M79.7 Fibromyalgia; R11.0 Nausea; F41.9 Anxiety disorder, unspecified; F32.9 Major depressive disorder, single episode, unspecified; Z79.3 Long term (current) use of hormonal contraceptives; Z79.899 Other long term (current) drug therapy; Z53.20 Procedure and treatment not carried out because of patient's decision for unspecified reasons; Z91.040 Latex allergy status; Z87.42 Personal history of other diseases of the female genital tract
CPT/HCPCS: 36415; 76705; 76830; 80053; 81003; 81025; 83605; 83690; 85025; 93005; 93976; 96360; 99284

== ENCOUNTER 2020-07-05 15:23 | Emergency (ER) | payer OTHER ==
[2020-07-05] MEDS ORDERED: ONDANSETRON 4 MG/2 ML VIAL IVP STA (16:59)
[2020-07-05] MEDS ORDERED: SODIUM CHLORIDE 0.9% 1,000 ML IV STA (16:59)
[2020-07-05] MEDS ORDERED: MORPHINE SULFATE 4 MG/ML SYRINGE IV STA (16:59)
--- NOTE | 2020-07-05 16:59 | ED ---
Abdominal Pain HPI - General Source: patient, RN notes reviewed Mode of arrival: ambulatory Limitations: no limitations <Julio Morel - Last Filed: 07/05/20 17:48> <Ignacio Thacker - Last Filed: 07/05/20 19:52> - General Chief Complaint: Abdominal Pain Stated Complaint: Stomach Pain Time Seen by Provider: 07/05/20 16:56 - History of Present Illness Initial Comments: Patient is a 24-year-old female that comes in complaining of bloating, loose greasy stools that are more frequent, and right upper quadrant pain. She notes that since about June 08 she's been having episodes of abdominal pain and bloating after eating fried greasy food, alcohol and several other foods. He was in no apparent distress or pain while sitting up during the exam interview. She did note that over the last several days she's become nauseous and vomited. She does have a decreased appetite. She was in no apparent distress or pain w hile sitting in the room. Denied any chest pain shortness of breath headache diarrhea constipation fever fatigue chills (Julio Morel) - Related Data Home Medications Medication Instructions Recorded Confirmed Escitalopram Oxalate [Lexapro] 20 mg PO W/SUPPER 01/09/19 02/17/19 Magnesium 200 mg PO HS 01/09/19 02/17/19 Ubidecarenone [Co Q-10] 100 mg PO HS 01/09/19 02/17/19 busPIRone HCl [Buspar] 10 mg PO W/SUPPER 01/09/19 02/17/19 Fluticasone Propion/Salmeterol 1 puff INHALATION RT-BID 02/17/19 02/17/19 [Wixela 250-50 Inhub] Vienva 0.1mg/0.02mg 1 tab PO W/SUPPER 02/17/19 02/17/19 buPROPion XL [Wellbutrin Xl] 150 mg PO W/SUPPER 02/17/19 02/17/19 Previous Rx's Medication Instructions Recorded Famotidine [Pepcid] 20 mg PO BID #30 tablet 07/05/20 Allergies Allergy/AdvReac Type Severity Reaction Status Date / Time latex AdvReac Rash/Hives Verified 07/05/20 19:43 Review of Systems ROS Other: All systems not noted in ROS Statement are negative. <Julio Morel - Last Filed: 07/05/20 17:48> ROS Other: All systems not noted in ROS Statement are negative. <Ignacio Thacker - Last Filed: 07/05/20 19:52> ROS Statement: Those systems with pertinent positive or pertinent negative responses have been documented in the HPI. Past Medical History Past Medical History: Asthma, Fibromyalgia Additional Past Medical History / Comment(s): ovarian cyst, neurocardogenic syncopy History of Any Multi-Drug Resistant Organisms: None Reported Additional Past Surgical History / Comment(s): wisdom teeth, dental implant Past Psychological History: Anxiety, Depression Past Alcohol Use History: Occasional Past Drug Use History: None Reported <Julio Morel - Last Filed: 07/05/20 17:48> General Exam General appearance: alert, in no apparent distress Head exam: Present: atraumatic, normocephalic, normal inspection Eye exam: Present: normal appearance, PERRL, EOMI. Absent: scleral icterus, conjunctival injection, periorbital swelling Neck exam: Present: normal inspection. Absent: tenderness, meningismus, lym phadenopathy Respiratory exam: Present: normal lung sounds bilaterally. Absent: respiratory distress, wheezes, rales, rhonchi, stridor Cardiovascular Exam: Present: regular rate, normal rhythm, normal heart sounds. Absent: systolic murmur, diastolic murmur, rubs, gallop, clicks GI/Abdominal exam: Present: soft, tenderness (Right upper quadrant to light/moderate palpation), hypoactive bowel sounds. Absent: distended, gu arding, rebound, rigid Extremities exam: Present: normal inspection, full ROM, normal capillary refill. Absent: tenderness, pedal edema, joint swelling, calf tenderness Neurological exam: Present: alert, oriented X3, CN II-XII intact Psychiatric exam: Present: normal affect, normal mood Skin exam: Present: warm, dry, intact, normal color. Absent: rash <Julio Morel - Last Filed: 07/05/20 17:48> Course Vital Signs 07/05/20 07/05/20 16:50 18:34 Temperature 98.7 F Pulse Rate 82 93 Respiratory 18 18 Rate Blood Pressure 123/66 126/78 O2 Sat by Pulse 98 96 Oximetry Medical Decision Making <Julio Morel - Last Filed: 07/05/20 17:48> - Lab Data Result diagrams: 07/05/20 18:32 07/05/20 18:32 - Radiology Data Radiology results: report reviewed (Computed tomography scan of abdomen and pelvis reveals no acute process) <Ignacio Thacker - Last Filed: 07/05/20 19:52> - Medical Decision Making 24-year-old female complaining of abdominal pain bloating and right upper quadrant pain. Labs, 1 L normal saline, 4 mg Zofran, 4 mg of morphine, CT of the abdomen and pelvis ordered. (Julio Morel) Patient reevaluated and resting comfortably in bed. Mild tenderness with palpation right upper quadrant epigastrium. Patient otherwise states symptoms are feeling better. Patient updated on results and need for follow-up as well as further evaluation. (Ignacio Thacker) - Lab Data Lab Results 07/05/20 07/05/20 07/05/20 Range/Units 18:13 18:13 18:32 WBC 9.0 (3.8-10.6) k/uL RBC 4.37 (3.80-5.40) m/uL Hgb 12.8 (11.4-16.0) gm/dL Hct 38.5 (34.0-46.0) % MCV 88.1 (80.0-100.0) fL MCH 29.3 (25.0-35.0) pg MCHC 33.3 (31.0-37.0) g/dL RDW 12.9 (11.5-15.5) % Plt Count 432 (150-450) k/uL MPV 6.7 Neutrophils % 57 % Lymphocytes % 22 % Monocytes % 4 % Eosinophils % 15 % Basophils % 1 % Neutrophils # 5.2 (1.3-7.7) k/uL Lymphocytes # 2.0 (1.0-4.8) k/uL Monocytes # 0.4 (0-1.0) k/uL Eosinophils # 1.3 H (0-0.7) k/uL Basophils # 0.1 (0-0.2) k/uL Sodium (137-145) mmol/L Potassium (3.5-5.1) mmol/L Chloride (98-107) mmol/L Carbon Dioxide (22-30) mmol/L Anion Gap mmol/L BUN (7-17) mg/dL Creatinine (0.52-1.04) mg/dL Est GFR (CKD-EPI)AfAm (>60 ml/min/1.73 sqM) Est GFR (CKD-EPI)NonAf (>60 ml/min/1.73 sqM) Glucose (74-99) mg/dL Calcium (8.4-10.2) mg/dL Total Bilirubin (0.2-1.3) mg/dL AST (14-36) U/L ALT (4-34) U/L Alkaline Phosphatase (38-126) U/L Total Protein (6.3-8.2) g/dL Albumin (3.5-5.0) g/dL Amylase (30-110) U/L Lipase (23-300) U/L Urine Color Yellow Urine Appearance Clear (Clear) Urine pH 5.5 (5.0-8.0) Ur Specific [place] 1.023 (1.001-1.035) Urine Protein Negative (Negative) Urine Glucose (UA) Negative (Negative) Urine Ketones Negative (Negative) Urine Blood Negative (Negative) Urine Nitrite Negative (Negative) Urine Bilirubin Negative (Negative) Urine Urobilinogen <2.0 (<2.0) mg/dL Ur Leukocyte Esterase Negative (Negative) Urine HCG, Qual Not Detected (Not Detectd) 07/05/20 Range/Units 18:32 WBC (3.8-10.6) k/uL RBC (3.80-5.40) m/uL Hgb (11.4-16.0) gm/dL Hct (34.0-46.0) % MCV (80.0-100.0) fL MCH (25.0-35.0) pg MCHC (31.0-37.0) g/dL RDW (11.5-15.5) % Plt Count (150-450) k/uL MPV Neutrophils % % Lymphocytes % % Monocytes % % Eosinophils % % Basophils % % Neutrophils # (1.3-7.7) k/uL Lymphocytes # (1.0-4.8) k/uL Monocytes # (0-1.0) k/uL Eosinophils # (0-0.7) k/uL Basophils # (0-0.2) k/uL Sodium 138 (137-145) mmol/L Potassium 4.2 (3.5-5.1) mmol/L Chloride 103 (98-107) mmol/L Carbon Dioxide 27 (22-30) mmol/L Anion Gap 8 mmol/L BUN 17 (7-17) mg/dL Creatinine 0.60 (0.52-1.04) mg/dL Est GFR (CKD-EPI)AfAm >90 (>60 ml/min/1.73 sqM) Est GFR (CKD-EPI)NonAf >90 (>60 ml/min/1.73 sqM) Glucose 97 (74-99) mg/dL Calcium 9.8 (8.4-10.2) mg/dL Total Bilirubin 0.2 (0.2-1.3) mg/dL AST 29 (14-36) U/L ALT 31 (4-34) U/L Alkaline Phosphatase 55 (38-126) U/L Total Protein 7.1 (6.3-8.2) g/dL Albumin 4.1 (3.5-5.0) g/dL Amylase 97 (30-110) U/L Lipase 145 (23-300) U/L Urine Color Urine Appearance (Clear) Urine pH (5.0-8.0) Ur Specific [place] (1.001-1.035) Urine Protein (Negative) Urine Glucose (UA) (Negative) Urine Ketones (Negative) Urine Blood (Negative) Urine Nitrite (Negative) Urine Bilirubin (Negative) Urine Urobilinogen (<2.0) mg/dL Ur Leukocyte Esterase (Negative) Urine HCG, Qual (Not Detectd) Disposition <Julio Morel - Last Filed: 07/05/20 17:48> Is patient prescribed a controlled substance at d/c from ED?: No Time of Disposition: 19:50 <Ignacio Thacker - Last Filed: 07/05/20 19:52> Clinical Impression: Abdominal pain Disposition: HOME SELF-CARE Condition: Stable Instructions (If sedation given, give patient instructions): Abdominal Pain (ED) Additional Instructions: Please follow-up with primary care physician in the next day or 2 for recheck. Consider further testing including possibly HIDA scan or endoscopy or other. Add Pepcid twice daily, prescription has been sent here Ai ornelas on . Continue omeprazole. Return for increased pain, fever, vomiting, worsening symptoms or other concerns. Avoid high fat and greasy foods as well as large meals. Prescriptions: Famotidine [Pepcid] 20 mg PO BID #30 tablet Referrals: Ana Byrne MD [STAFF PHYSICIAN] - 1-2 days Elaine Amaya MD [STAFF PHYSICIAN] - 1-2 days
[2020-07-05 17:01] VITALS: RESP 18
[2020-07-05 18:30] LABS: Appearance,Urine Clear (Clear); Bilirubin,Urine Negative (Negative); Blood,Urine Negative (Negative); Color,Urine Yellow; Glucose,Urine (UA) Negative (Negative); Ketones,Urine Negative (Negative); Leukocyte Esterase,Urine Negative (Negative); Nitrite,Urine Negative (Negative); PH, Urine 5.5 (5.0-8.0); Protein,Urine Negative (Negative); Specific Gravity,Urine 1.023 (1.001-1.035); Urobilinogen,Urine <2.0 mg/dL (<2.0)
[2020-07-05 18:48] LABS: Basophils # (A) 0.1 k/uL (0-0.2); Basophils % (A) 1 %; Eosinophils # (A) 1.3 k/uL (0-0.7); Eosinophils % (A) 15 %; HCT 38.5 % (34.0-46.0); HGB 12.8 gm/dL (11.4-16.0); Lymphocytes % (A) 22 %; MCH 29.3 pg (25.0-35.0); MCHC 33.3 g/dL (31.0-37.0); MCV 88.1 fL (80.0-100.0); Mean Platelet Volume 6.7; Monocytes # (A) 0.4 k/uL (0-1.0); Monocytes % (A) 4 %; Neutrophils # (A) 5.2 k/uL (1.3-7.7); Neutrophils % (A) 57 %; Platelet Count 432 k/uL (150-450); RBC 4.37 m/uL (3.80-5.40); RDW 12.9 % (11.5-15.5)
[2020-07-05 19:05] LABS: ALT 31 U/L (4-34); AST 29 U/L (14-36); African American GFR (CKD) >90 (>60 ml/min/1.73 sqM); Albumin 4.1 g/dL (3.5-5.0); Alkaline Phosphatase 55 U/L (38-126); Amylase 97 U/L (30-110); Anion Gap 8 mmol/L; Blood Urea Nitrogen 17 mg/dL (7-17); Calcium 9.8 mg/dL (8.4-10.2); Carbon Dioxide 27 mmol/L (22-30); Chloride 103 mmol/L (98-107); Glucose 97 mg/dL (74-99); Lipase 145 U/L (23-300); Non-African American GFR(CKD) >90 (>60 ml/min/1.73 sqM); Potassium 4.2 mmol/L (3.5-5.1); Sodium 138 mmol/L (137-145); Total Bilirubin 0.2 mg/dL (0.2-1.3); Total Protein 7.1 g/dL (6.3-8.2)
--- NOTE | 2020-07-05 19:22 | CT ---
EXAMINATION TYPE: CT abdomen pelvis w con DATE OF EXAM: 07/05/2020 COMPARISON: None HISTORY: epigastric pain CT DLP: 1273.4 mGycm Automated exposure control for dose reduction was used. CONTRAST: Performed with IV Contrast, patient injected with 100 mL of Isovue 300. Images obtained from the diaphragm to the floor the pelvis with IV contrast. Lung bases are clear. There is no pleural effusion. Heart size is normal. There is no pericardial eff usion. Liver spleen stomach pancreas gallbladder appear normal. The bile ducts are not dilated. Delay ed images show normal renal excretion. There is no adrenal mass. Kidneys show satisfactory contrast opacification. There is no hydronephrosi s. Ureters are not dilated. There is no retroperitoneal adenopathy. Bladder distends smoothly. There is no inguinal hernia. I see no intestinal wall thickening. There is no mesenteric edema. There is no ascites or free air. There is no bowel obstruction. Appendix is posterior and appears normal. The lumbar vertebra show normal spacing and alignment. Posterior elements are intact. There is no com pression fracture. The bony pelvis is intact. Hip joints are intact. There is bone island in the inte rtrochanteric right femur. IMPRESSION: Negative CT scan of the abdomen pelvis. Normal appendix.
[2020-07-05 21:01] VITALS: BP 101/60; PULSE 82; TEMP 98
== END 2020-07-05 21:00 | disposition home or self-care (01) ==
LOC: EC 15:23
DX: R10.11 Right upper quadrant pain (principal); F32.9 Major depressive disorder, single episode, unspecified; F41.9 Anxiety disorder, unspecified; J45.909 Unspecified asthma, uncomplicated; Z79.51 Long term (current) use of inhaled steroids
CPT/HCPCS: 36415; 74177; 80053; 81003; 81025; 82150; 83690; 85025; 96361; 96374; 96375; 99284

== ENCOUNTER 2020-07-07 10:04 | Emergency (ER) | payer OTHER ==
[2020-07-07] MEDS ORDERED: SODIUM CHLORIDE 0.9% 1,000 ML IV STA (10:24)
[2020-07-07 10:47] LABS: Appearance,Urine Clear (Clear); Bilirubin,Urine Negative (Negative); Blood,Urine Negative (Negative); Color,Urine Light Yellow; Glucose,Urine (UA) Negative (Negative); Ketones,Urine Negative (Negative); Leukocyte Esterase,Urine Negative (Negative); Nitrite,Urine Negative (Negative); PH, Urine 6.5 (5.0-8.0); Protein,Urine Negative (Negative); Specific Gravity,Urine 1.006 (1.001-1.035); Urobilinogen,Urine <2.0 mg/dL (<2.0)
[2020-07-07 10:51] LABS: Basophils # (A) 0.1 k/uL (0-0.2); Basophils % (A) 1 %; Eosinophils # (A) 1.2 k/uL (0-0.7); Eosinophils % (A) 14 %; HCT 39.7 % (34.0-46.0); HGB 13.1 gm/dL (11.4-16.0); Lymphocytes # (A) 1.6 k/uL (1.0-4.8); Lymphocytes % (A) 18 %; MCH 28.9 pg (25.0-35.0); MCV 87.7 fL (80.0-100.0); Mean Platelet Volume 6.9; Monocytes # (A) 0.4 k/uL (0-1.0); Monocytes % (A) 4 %; Neutrophils # (A) 5.6 k/uL (1.3-7.7); Neutrophils % (A) 63 %; Platelet Count 424 k/uL (150-450); RBC 4.53 m/uL (3.80-5.40); RDW 12.7 % (11.5-15.5); WBC 8.9 k/uL (3.8-10.6)
[2020-07-07 10:53] LABS: ALT 32 U/L (4-34); AST 33 U/L (14-36); African American GFR (CKD) >90 (>60 ml/min/1.73 sqM); Albumin 4.2 g/dL (3.5-5.0); Alkaline Phosphatase 54 U/L (38-126); Anion Gap 8 mmol/L; Blood Urea Nitrogen 13 mg/dL (7-17); Calcium 10.1 mg/dL (8.4-10.2); Carbon Dioxide 27 mmol/L (22-30); Chloride 104 mmol/L (98-107); Glucose 105 mg/dL (74-99); Non-African American GFR(CKD) >90 (>60 ml/min/1.73 sqM); Potassium 4.4 mmol/L (3.5-5.1); Sodium 139 mmol/L (137-145); Total Bilirubin 0.2 mg/dL (0.2-1.3); Total Protein 7.2 g/dL (6.3-8.2)
--- NOTE | 2020-07-07 11:02 | ED ---
General Adult HPI - General Chief complaint: Syncope Stated complaint: syncopal episode Time Seen by Provider: 07/07/20 10:10 Source: patient, EMS Mode of arrival: EMS - History of Present Illness Initial comments: Patient is a 24-year-old female presenting to the emergency department via EMS after she was syncopal event at work. 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 She does have a follow-up with her doctors at [facility] next month. Patient states when she got to work this morning she did feel a little lightheaded, she was standing to make copies it when the next thing she knew she was laying on the floor. She did fall forward hitting her front of her head. Length of unconsciousness is not known. Patient states at this time she only complains of a mild headache in the front where she hit, no other pains. She denies any chest pain or shortness of breath. She denies any recent fever or chills. No abdominal pain, no nausea or vomiting. She denies being . Further complaints at this time. Upon arrival to the ER her vitals are stable. - Related Data Home Medications Medication Instructions Recorded Confirmed Escitalopram Oxalate [Lexapro] 20 mg PO AC-SUPPER 01/09/19 07/07/20 busPIRone HCl [Buspar] 10 mg PO AC-SUPPER 01/09/19 07/07/20 buPROPion XL [Wellbutrin Xl] 150 mg PO AC-SUPPER 02/17/19 07/07/20 Albuterol Nebulized [Ventolin 2.5 mg INHALATION RT-QID PRN 07/05/20 07/07/20 Nebulized] Fluticasone Nasal Olivia [Flonase 1 spray EA NOSTRIL DAILY PRN 07/05/20 07/07/20 Nasal Olivia] Fluticasone/Salmeterol [Advair 1 puff INHALATION RT-BID 07/05/20 07/07/20 250-50 Diskus] Loratadine [Claritin] 10 mg PO AC-SUPPER 07/05/20 07/07/20 Midodrine HCl 5 mg PO DAILY PRN 07/05/20 07/07/20 Naproxen 375 mg PO BID PRN 07/05/20 07/07/20 Omeprazole 20 mg PO AC-SUPPER 07/05/20 07/07/20 Orsythia 0.1-0.02 Mg 1 tab PO AC-SUPPER 07/05/20 07/07/20 Sf 5000 Plus 1.1% Cream 1 applic DENTAL BID 07/05/20 07/07/20 buPROPion HCL [Wellbutrin XL] 300 mg PO AC-SUPPER 07/05/20 07/07/20 Previous Rx's Medication Instructions Recorded Famotidine [Pepcid] 20 mg PO BID #30 tablet 07/05/20 Allergies Allergy/AdvReac Type Severity Reaction Status Date / Time latex Allergy Rash/Hives Verified 07/07/20 12:09 Review of Systems ROS Statement: Those systems with pertinent positive or pertinent negative responses have been documented in the HPI. ROS Other: All systems not noted in ROS Statement are negative. Past Medical History Past Medical History: Asthma, Fibromyalgia Additional Past Medical History / Comment(s): ovarian cyst, neurocardogenic syncopy History of Any Multi-Drug Resistant Organisms: None Reported Additional Past Surgical History / Comment(s): wisdom teeth, dental implant Past Psychological History: Anxiety, Depression Smoking Status: Never smoker Past Alcohol Use History: None Reported Past Drug Use History: None Reported General Exam - General Exam Comments Initial Comments: GENERAL: Patient is well-developed and well-nourished. Patient is nontoxic and in no acute distress. HEAD: Patient has a very small hematoma and mild pain with palpation of the anterior forehead, no signs of basal skull fracture. EYES: Pupils equal round and reactive to light, extraocular movements intact, sclera anicteric, conjunctiva are normal. Eyelids were unremarkable. ENT: TMs normal, nares patent, oropharynx clear without exudates. Moist mucous membranes. NECK: Normal range of motion, supple without lymphadenopathy or JVD. LUNGS: Unlabored respirations. Breath sounds clear to auscultation bilaterally and equal. No wheezes rales or rhonchi. HEART: Regular rate and rhythm without murmurs, rubs or gallops. ABDOMEN: Soft, nontender, normoactive bowel sounds. No guarding, no rebound. No masses appreciated. : Deferred MUSCULOSKELETAL: Normal extremities with adequate strength and normal range of motion, no pitting or edema. No clubbing or cyanosis. NEUROLOGICAL: Patient is alert and oriented x 3. Motor and sensory are also intact. Cranial nerves II through XII grossly intact. Symmetrical smile. Normal speech, normal gait. PSYCH: Normal mood, normal affect. SKIN: Warm, Dry, normal turgor, no rashes or lesions noted. Course Vital Signs 07/07/20 07/07/20 10:07 12:20 Temperature 98 F 97.3 F L Pulse Rate 80 74 Respiratory 18 16 Rate Blood Pressure 118/73 116/74 O2 Sat by Pulse 97 98 Oximetry EKG Findings - EKG Comments: EKG Findings:: Normal sinus rhythm, normal ECG, no signs of acute ischemia. Ventricular rate 77, IA interval 184, QT 370. Medical Decision Making - Medical Decision Making Patient is a 24-year-old female here after having a syncopal event at work today. She does have history of neurogenic syncope, follows with doctors at [facility]. KG shows normal sinus rhythm. Labs are unremarkable, normal troponin, normal UA, urine hCG is not detected. Chest x-ray shows no acute process. Patient's vital signs remained stable here in the ER, she is asymptomatic other than being fatigued. I discussed these findings with the patient. She'll follow- up with her regular doctors. She doesn't appointment with her PCP in 2 days. Patient is stable for discharge. Patient is in agreement with this plan of care. Return parameters were discussed with the jacklyn mcguire and they verbalized understanding. Case discussed with Dr. Kim. - Lab Data Result diagrams: 07/07/20 10:33 07/07/20 10:33 Lab Results 07/07/20 07/07/20 07/07/20 Range/Units 10:33 10:33 10:33 WBC 8.9 (3.8-10.6) k/uL RBC 4.53 (3.80-5.40) m/uL Hgb 13.1 (11.4-16.0) gm/dL Hct 39.7 (34.0-46.0) % MCV 87.7 (80.0-100.0) fL MCH 28.9 (25.0-35.0) pg MCHC 33.0 (31.0-37.0) g/dL RDW 12.7 (11.5-15.5) % Plt Count 424 (150-450) k/uL MPV 6.9 Neutrophils % 63 % Lymphocytes % 18 % Monocytes % 4 % Eosinophils % 14 % Basophils % 1 % Neutrophils # 5.6 (1.3-7.7) k/uL Lymphocytes # 1.6 (1.0-4.8) k/uL Monocytes # 0.4 (0-1.0) k/uL Eosinophils # 1.2 H (0-0.7) k/uL Basophils # 0.1 (0-0.2) k/uL Sodium 139 (137-145) mmol/L Potassium 4.4 (3.5-5.1) mmol/L Chloride 104 (98-107) mmol/L Carbon Dioxide 27 (22-30) mmol/L Anion Gap 8 mmol/L BUN 13 (7-17) mg/dL Creatinine 0.64 (0.52-1.04) mg/dL Est GFR (CKD-EPI)AfAm >90 (>60 ml/min/1.73 sqM) Est GFR (CKD-EPI)NonAf >90 (>60 ml/min/1.73 sqM) Glucose 105 H (74-99) mg/dL Calcium 10.1 (8.4-10.2) mg/dL Total Bilirubin 0.2 (0.2-1.3) mg/dL AST 33 (14-36) U/L ALT 32 (4-34) U/L Alkaline Phosphatase 54 (38-126) U/L Troponin I (0.000-0.034) ng/mL Total Protein 7.2 (6.3-8.2) g/dL Albumin 4.2 (3.5-5.0) g/dL Urine Color Light Yellow Urine Appearance Clear (Clear) Urine pH 6.5 (5.0-8.0) Ur Specific [employer] 1.006 (1.001-1.035) Urine Protein Negative (Negative) Urine Glucose (UA) Negative (Negative) Urine Ketones Negative (Negative) Urine Blood Negative (Negative) Urine Nitrite Negative (Negative) Urine Bilirubin Negative (Negative) Urine Urobilinogen <2.0 (<2.0) mg/dL Ur Leukocyte Esterase Negative (Negative) Urine HCG, Qual (Not Detectd) 07/07/20 07/07/20 Range/Units 10:33 10:33 WBC (3.8-10.6) k/uL RBC (3.80-5.40) m/uL Hgb (11.4-16.0) gm/dL Hct (34.0-46.0) % MCV (80.0-100.0) fL MCH (25.0-35.0) pg MCHC (31.0-37.0) g/dL RDW (11.5-15.5) % Plt Count (150-450) k/uL MPV Neutrophils % % Lymphocytes % % Monocytes % % Eosinophils % % Basophils % % Neutrophils # (1.3-7.7) k/uL Lymphocytes # (1.0-4.8) k/uL Monocytes # (0-1.0) k/uL Eosinophils # (0-0.7) k/uL Basophils # (0-0.2) k/uL Sodium (137-145) mmol/L Potassium (3.5-5.1) mmol/L Chloride (98-107) mmol/L Carbon Dioxide (22-30) mmol/L Anion Gap mmol/L BUN (7-17) mg/dL Creatinine (0.52-1.04) mg/dL Est GFR (CKD-EPI)AfAm (>60 ml/min/1.73 sqM) Est GFR (CKD-EPI)NonAf (>60 ml/min/1.73 sqM) Glucose (74-99) mg/dL Calcium (8.4-10.2) mg/dL Total Bilirubin (0.2-1.3) mg/dL AST (14-36) U/L ALT (4-34) U/L Alkaline Phosphatase (38-126) U/L Troponin I <0.012 (0.000-0.034) ng/mL Total Protein (6.3-8.2) g/dL Albumin (3.5-5.0) g/dL Urine Color Urine Appearance (Clear) Urine pH (5.0-8.0) Ur Specific [employer] (1.001-1.035) Urine Protein (Negative) Urine Glucose (UA) (Negative) Urine Ketones (Negative) Urine Blood (Negative) Urine Nitrite (Negative) Urine Bilirubin (Negative) Urine Urobilinogen (<2.0) mg/dL Ur Leukocyte Esterase (Negative) Urine HCG, Qual Not Detected (Not Detectd) Disposition Clinical Impression: Syncope and collapse Disposition: HOME SELF-CARE Condition: Stable Instructions (If sedation given, give patient instructions): Syncope (ED) Additional Instructions: Please return to the Emergency Department if symptoms worsen or any other concerns. Please follow-up with your family doctor/community relations advisor. Is patient prescribed a controlled substance at d/c from ED?: No Referrals: Nonstaff,Physician [Primary Care Provider] - 1-2 days
--- NOTE | 2020-07-07 11:14 | XR ---
EXAMINATION TYPE: XR chest 2V DATE OF EXAM: 07/07/2020 COMPARISON: 02/17/2019 INDICATION: Syncope TECHNIQUE: Frontal and lateral views of the chest are obtained. FINDINGS: The heart size is normal. The pulmonary vasculature is normal. The lungs are clear. IMPRESSION: 1. No acute pulmonary process.
[2020-07-07 12:21] VITALS: BP 116/74; PULSE 74; RESP 16; TEMP 97.3
== END 2020-07-07 12:21 | disposition home or self-care (01) ==
LOC: EC 10:04
DX: R55 Syncope and collapse (principal); J45.909 Unspecified asthma, uncomplicated; F41.9 Anxiety disorder, unspecified; F32.9 Major depressive disorder, single episode, unspecified
CPT/HCPCS: 36415; 71046; 80053; 81003; 81025; 84484; 85025; 93005

== ENCOUNTER 2020-08-12 21:49 | Emergency (ER) | payer OTHER ==
[2020-08-12 21:56] VITALS: PULSE 85; RESP 16; TEMP 98.2
[2020-08-12] MEDS ORDERED: SODIUM CHLORIDE 0.9% 1,000 ML IV STA (22:22)
[2020-08-12] MEDS ORDERED: PANTOPRAZOLE 40 MG/10 ML VIAL IVP STA (22:22)
[2020-08-12] MEDS ORDERED: KETOROLAC 15 MG/ML 1 ML VIAL IVP STA (22:22)
[2020-08-12] MEDS ORDERED: ONDANSETRON 4 MG/2 ML VIAL IVP STA (22:22)
--- NOTE | 2020-08-12 22:39 | ED ---
Abdominal Pain HPI - General Chief Complaint: Abdominal Pain Stated Complaint: Abd Pain Time Seen by Provider: 08/12/20 21:59 Source: patient, EMS Mode of arrival: EMS Limitations: no limitations - History of Present Illness Initial Comments: 24-year-old female presents to emergency Department with chief complaint of abdominal pain. States her symptoms are benign well for the past 2 months and it was usually pain located in the epigastric abdominal region with some radiation to the umbilicus. States she has seen a GI specialist who performed an upper GI scope but no acute findings. Patient reports today her dog jumped on her upper abdomen the pain had began to radiate to the right upper quadrant. States the pain is usually worse after she eats her dinner and vomits almost every night. She does report history of loose stools as well. Strong family history of gallbladder related problems. She denies any fevers or chill chest pain or shortness of breath. Denies any urinary or vaginal symptoms. Denies hematuria, hematochezia or melena. - Related Data Home Medications Medication Instructions Recorded Confirmed Escitalopram Oxalate [Lexapro] 20 mg PO AC-SUPPER 01/09/19 07/07/20 busPIRone HCl [Buspar] 10 mg PO AC-SUPPER 01/09/19 07/07/20 buPROPion XL [Wellbutrin Xl] 150 mg PO AC-SUPPER 02/17/19 07/07/20 Albuterol Nebulized [Ventolin 2.5 mg INHALATION RT-QID PRN 07/05/20 07/07/20 Nebulized] Fluticasone Nasal [place] [Flonase 1 spray EA NOSTRIL DAILY PRN 07/05/20 07/07/20 Nasal [place]] Fluticasone/Salmeterol [Advair 1 puff INHALATION RT-BID 07/05/20 07/07/20 250-50 Diskus] Loratadine [Claritin] 10 mg PO AC-SUPPER 07/05/20 07/07/20 Midodrine HCl 5 mg PO DAILY PRN 07/05/20 07/07/20 Naproxen 375 mg PO BID PRN 07/05/20 07/07/20 Omeprazole 20 mg PO AC-SUPPER 07/05/20 07/07/20 Orsythia 0.1-0.02 Mg 1 tab PO AC-SUPPER 07/05/20 07/07/20 Sf 5000 Plus 1.1% Cream 1 applic DENTAL BID 07/05/20 07/07/20 buPROPion HCL [Wellbutrin XL] 300 mg PO AC-SUPPER 07/05/20 07/07/20 Previous Rx's Medication Instructions Recorded Famotidine [Pepcid] 20 mg PO BID #30 tablet 07/05/20 Ondansetron Odt [Zofran Odt] 4 mg PO Q8HR PRN #14 tab 08/12/20 Allergies Allergy/AdvReac Type Severity Reaction Status Date / Time latex Allergy Rash/Hives Verified 07/07/20 12:09 Review of Systems ROS Statement: Those systems with pertinent positive or pertinent negative responses have been documented in the HPI. ROS Other: All systems not noted in ROS Statement are negative. Past Medical History Past Medical History: Asthma, Fibromyalgia Additional Past Medical History / Comment(s): ovarian cyst, neurocardogenic syncopy History of Any Multi-Drug Resistant Organisms: None Reported Additional Past Surgical History / Comment(s): wisdom teeth, dental implant, upper GI scope Past Psychological History: Anxiety, Depression Smoking Status: Never smoker Past Alcohol Use History: None Reported Past Drug Use History: None Reported General Exam Limitations: no limitations General appearance: alert, in no apparent distress, obese Head exam: Present: atraumatic, normocephalic, normal inspection Eye exam: Present: normal appearance, PERRL, EOMI Pupils: Present: normal accommodation ENT exam: Present: normal exam, normal oropharynx, mucous membranes moist, TM's normal bilaterally, normal external ear exam Neck exam: Present: normal inspection, full ROM. Absent: tenderness Respiratory exam: Present: normal lung sounds bilaterally. Absent: respiratory distress Cardiovascular Exam: Present: regular rate, normal rhythm, normal heart sounds. Absent: systolic murmur GI/Abdominal exam: Present: soft, tenderness (Positive Guido sign). Absent: distended, guarding, rebound, rigid Extremities exam: Present: normal inspection, full ROM, normal capillary refill. Absent: tenderness, pedal edema, joint swelling Back exam: Present: normal inspection, full ROM. Absent: tenderness, CVA tenderness (R) Neurological exam: Present: alert, oriented X3 Psychiatric exam: Present: normal affect, normal mood Skin exam: Present: warm, dry, intact, normal color Course Vital Signs 08/12/20 21:50 Temperature 98.2 F Pulse Rate 85 Respiratory 16 Rate Blood Pressure 123/92 O2 Sat by Pulse 97 Oximetry Medical Decision Making - Medical Decision Making 24-year-old female presents emergency Department with chief complaint of abdominal pain. On physical examination, positive Guido sign. Nonacute abdomen. CBC remarkable. CMP reveals mild elevation in AST. UA unremarkable. Ultrasound reveals gallstones but no signs of cholecystitis. Patient advised to follow low-fat diet. Will be discharged with Zofran. Advised to follow-up with the general surgeon. Return parameters discussed with patient was understanding and agreeable. Case discussed with - Lab Data Result diagrams: 08/12/20 22:29 08/12/20 22:29 Lab Results 08/12/20 08/12/20 08/12/20 Range/Units 22:29 22:29 22:29 WBC 9.0 (3.8-10.6) k/uL RBC 4.48 (3.80-5.40) m/uL Hgb 13.0 (11.4-16.0) gm/dL Hct 39.2 (34.0-46.0) % MCV 87.6 (80.0-100.0) fL MCH 29.0 (25.0-35.0) pg MCHC 33.1 (31.0-37.0) g/dL RDW 12.7 (11.5-15.5) % Plt Count 446 (150-450) k/uL MPV 7.1 Neutrophils % 45 % Lymphocytes % 27 % Monocytes % 4 % Eosinophils % 22 % Basophils % 1 % Neutrophils # 4.1 (1.3-7.7) k/uL Lymphocytes # 2.4 (1.0-4.8) k/uL Monocytes # 0.4 (0-1.0) k/uL Eosinophils # 2.0 H (0-0.7) k/uL Basophils # 0.1 (0-0.2) k/uL Sodium (137-145) mmol/L Potassium (3.5-5.1) mmol/L Chloride (98-107) mmol/L Carbon Dioxide (22-30) mmol/L Anion Gap mmol/L BUN (7-17) mg/dL Creatinine (0.52-1.04) mg/dL Est GFR (CKD-EPI)AfAm (>60 ml/min/1.73 sqM) Est GFR (CKD-EPI)NonAf (>60 ml/min/1.73 sqM) Glucose (74-99) mg/dL Calcium (8.4-10.2) mg/dL Total Bilirubin (0.2-1.3) mg/dL AST (14-36) U/L ALT (4-34) U/L Alkaline Phosphatase (38-126) U/L Total Protein (6.3-8.2) g/dL Albumin (3.5-5.0) g/dL Amylase (30-110) U/L Lipase (23-300) U/L Urine Color Yellow Urine Appearance Clear (Clear) Urine pH 6.5 (5.0-8.0) Ur Specific [place] 1.026 (1.001-1.035) Urine Protein Trace H (Negative) Urine Glucose (UA) Negative (Negative) Urine Ketones Negative (Negative) Urine Blood Negative (Negative) Urine Nitrite Negative (Negative) Urine Bilirubin Negative (Negative) Urine Urobilinogen <2.0 (<2.0) mg/dL Ur Leukocyte Esterase Negative (Negative) Urine HCG, Qual Not Detected (Not Detectd) 08/12/20 Range/Units 22:29 WBC (3.8-10.6) k/uL RBC (3.80-5.40) m/uL Hgb (11.4-16.0) gm/dL Hct (34.0-46.0) % MCV (80.0-100.0) fL MCH (25.0-35.0) pg MCHC (31.0-37.0) g/dL RDW (11.5-15.5) % Plt Count (150-450) k/uL MPV Neutrophils % % Lymphocytes % % Monocytes % % Eosinophils % % Basophils % % Neutrophils # (1.3-7.7) k/uL Lymphocytes # (1.0-4.8) k/uL Monocytes # (0-1.0) k/uL Eosinophils # (0-0.7) k/uL Basophils # (0-0.2) k/uL Sodium 138 (137-145) mmol/L Potassium 4.4 (3.5-5.1) mmol/L Chloride 102 (98-107) mmol/L Carbon Dioxide 28 (22-30) mmol/L Anion Gap 8 mmol/L BUN 14 (7-17) mg/dL Creatinine 0.68 (0.52-1.04) mg/dL Est GFR (CKD-EPI)AfAm >90 (>60 ml/min/1.73 sqM) Est GFR (CKD-EPI)NonAf >90 (>60 ml/min/1.73 sqM) Glucose 97 (74-99) mg/dL Calcium 10.2 (8.4-10.2) mg/dL Total Bilirubin 0.1 L (0.2-1.3) mg/dL AST 35 (14-36) U/L ALT 39 H (4-34) U/L Alkaline Phosphatase 64 (38-126) U/L Total Protein 7.1 (6.3-8.2) g/dL Albumin 4.2 (3.5-5.0) g/dL Amylase 100 (30-110) U/L Lipase 171 (23-300) U/L Urine Color Urine Appearance (Clear) Urine pH (5.0-8.0) Ur Specific [place] (1.001-1.035) Urine Protein (Negative) Urine Glucose (UA) (Negative) Urine Ketones (Negative) Urine Blood (Negative) Urine Nitrite (Negative) Urine Bilirubin (Negative) Urine Urobilinogen (<2.0) mg/dL Ur Leukocyte Esterase (Negative) Urine HCG, Qual (Not Detectd) Disposition Clinical Impression: Cholelithiasis Disposition: HOME SELF-CARE Condition: Stable Instructions (If sedation given, give patient instructions): Low Fat Diet (ED), Gallstones (ED) Additional Instructions: Follow-up with the general surgeon. Avoid eating fatty food. Return to emergency department if symptoms worsen. Is patient prescribed a controlled substance at d/c from ED?: No Referrals: Nonstaff,Physician [Primary Care Provider] - 1-2 days Julien William MD [STAFF PHYSICIAN] - 1-2 days Time of Disposition: 23:13
[2020-08-12 22:41] LABS: Basophils # (A) 0.1 k/uL (0-0.2); Basophils % (A) 1 %; Eosinophils % (A) 22 %; HCT 39.2 % (34.0-46.0); Lymphocytes # (A) 2.4 k/uL (1.0-4.8); Lymphocytes % (A) 27 %; MCHC 33.1 g/dL (31.0-37.0); MCV 87.6 fL (80.0-100.0); Mean Platelet Volume 7.1; Monocytes # (A) 0.4 k/uL (0-1.0); Monocytes % (A) 4 %; Neutrophils # (A) 4.1 k/uL (1.3-7.7); Neutrophils % (A) 45 %; Platelet Count 446 k/uL (150-450); RBC 4.48 m/uL (3.80-5.40); RDW 12.7 % (11.5-15.5)
[2020-08-12 22:44] LABS: Appearance,Urine Clear (Clear); Bilirubin,Urine Negative (Negative); Blood,Urine Negative (Negative); Color,Urine Yellow; Glucose,Urine (UA) Negative (Negative); Ketones,Urine Negative (Negative); Leukocyte Esterase,Urine Negative (Negative); Nitrite,Urine Negative (Negative); PH, Urine 6.5 (5.0-8.0); Protein,Urine Trace (Negative); Specific Gravity,Urine 1.026 (1.001-1.035); Urobilinogen,Urine <2.0 mg/dL (<2.0)
[2020-08-12 23:06] LABS: ALT 39 U/L (4-34); AST 35 U/L (14-36); African American GFR (CKD) >90 (>60 ml/min/1.73 sqM); Albumin 4.2 g/dL (3.5-5.0); Alkaline Phosphatase 64 U/L (38-126); Amylase 100 U/L (30-110); Anion Gap 8 mmol/L; Blood Urea Nitrogen 14 mg/dL (7-17); Calcium 10.2 mg/dL (8.4-10.2); Carbon Dioxide 28 mmol/L (22-30); Chloride 102 mmol/L (98-107); Glucose 97 mg/dL (74-99); Lipase 171 U/L (23-300); Non-African American GFR(CKD) >90 (>60 ml/min/1.73 sqM); Potassium 4.4 mmol/L (3.5-5.1); Sodium 138 mmol/L (137-145); Total Bilirubin 0.1 mg/dL (0.2-1.3); Total Protein 7.1 g/dL (6.3-8.2)
--- NOTE | 2020-08-12 23:09 | US ---
EXAMINATION TYPE: US gallbladder DATE OF EXAM: 08/12/2020 COMPARISON: NONE CLINICAL HISTORY: + guido sign. Pain x 2 months. +Guido's sign. EXAM MEASUREMENTS: Liver Length: 17.1 cm Gallbladder Wall: 0.21 cm CBD: 0.36 cm Right Kidney: 10.4 x 4.4 x 3.4 cm Limited due to patient body habitus and gas. Pancreas: Slightly limited due to gas. No abnormalities seen. Liver: Measures upper limits of normal. Appears coarse. Gallbladder: Folds seen. Hyperechoic focus with posterior shadowing seen within the gallbladder measu rin.1 x 1.2 x 0.7 cm. A second echogenic area seen measurin.2 x 0.8 x 0.4 cm. Evidence for sonographic Guido's sign: Yes CBD: Portions seen appear wnl. Right Kidney: No hydronephrosis or masses seen IMPRESSION: There are gallstones. No dilated ducts. No focal liver defect.
[2020-08-12 23:28] VITALS: BP 108/80
== END 2020-08-12 23:28 | disposition home or self-care (01) ==
LOC: EC 21:49
DX: K80.20 Calculus of gallbladder without cholecystitis without obstruction (principal); J45.909 Unspecified asthma, uncomplicated; M79.7 Fibromyalgia; F32.9 Major depressive disorder, single episode, unspecified; F41.9 Anxiety disorder, unspecified; Z79.899 Other long term (current) drug therapy; Z79.51 Long term (current) use of inhaled steroids
CPT/HCPCS: 36415; 80053; 82150; 83690; 85025; 81003; 81025; 76705; 99284; 96374; 96375 ×2; 96361; J2405; J1885; C9113

== ENCOUNTER 2020-08-15 13:41 | Emergency (ER) | payer OTHER ==
[2020-08-15 13:47] VITALS: RESP 18
[2020-08-15] MEDS ORDERED: HYDROmorphone 0.5 MG/0.5 ML SYRINGE IVP STA (14:04)
[2020-08-15] MEDS ORDERED: ONDANSETRON 4 MG/2 ML VIAL IVP STA (14:04)
--- NOTE | 2020-08-15 14:15 | ED ---
Abdominal Pain HPI - General Chief Complaint: Abdominal Pain Stated Complaint: ABD pain,Revisit Time Seen by Provider: 08/15/20 13:58 Source: patient Mode of arrival: ambulatory Limitations: no limitations - History of Present Illness Initial Comments: 24-year-old female with history of asthma, ovarian cysts, neurocardiogenic syncope and gallstones present to the ER today for chief complaint of "gallbladder flare". Patient states yesterday evening after dinner she had right upper quadrant pain she states it has been persistent since that she can no longer take the pain she denies any fevers but states she has felt hot. She states that she has felt nauseated denies vomiting denies diarrhea. Patient denies any recorded fevers chest pain shortness of breath. Patient states she was here 2 days ago with similar symptoms. She states it is very similar in characteristic and is in the right upper quadrant pain towards the right shoulder blade, colicky in nature-fluctuating intensities. remaining ROS (-). - Related Data Home Medications Medication Instructions Recorded Confirmed Escitalopram Oxalate [Lexapro] 20 mg PO AC-SUPPER 01/09/19 08/15/20 busPIRone HCl [Buspar] 10 mg PO AC-SUPPER 01/09/19 08/15/20 Albuterol Nebulized [Ventolin 2.5 mg INHALATION RT-QID PRN 07/05/20 08/15/20 Nebulized] Fluticasone Nasal [place] [Flonase 1 spray EA NOSTRIL HS 07/05/20 08/15/20 Nasal [place]] Fluticasone/Salmeterol [Advair 1 puff INHALATION RT-BID 07/05/20 08/15/20 250-50 Diskus] Loratadine [Claritin] 10 mg PO AC-SUPPER 07/05/20 08/15/20 Midodrine HCl 2.5 mg PO TID 07/05/20 08/15/20 buPROPion HCL [Wellbutrin XL] 300 mg PO AC-SUPPER 07/05/20 08/15/20 Albuterol Inhaler [Ventolin Hfa 2 puff INHALATION RT-Q4H PRN 08/12/20 08/15/20 Inhaler] Lessina 0.1-0.2mg 1 tab PO AC-SUPPER 08/12/20 08/15/20 Pantoprazole Sodium [Protonix] 40 mg PO DAILY 08/12/20 08/15/20 Simethicone Chew [Mylicon Chew] 40 mg PO QID PRN 08/12/20 08/15/20 Previous Rx's Medication Instructions Recorded Famotidine [Pepcid] 20 mg PO BID #30 tablet 07/05/20 Ondansetron Odt [Zofran Odt] 4 mg PO Q8HR PRN #14 tab 08/12/20 Allergies Allergy/AdvReac Type Severity Reaction Status Date / Time latex Allergy Rash/Hives Verified 08/15/20 13:46 sumatriptan [From Imitrex] AdvReac dizzy Verified 08/15/20 13:46 Review of Systems ROS Statement: Those systems with pertinent positive or pertinent negative responses have been documented in the HPI. ROS Other: All systems not noted in ROS Statement are negative. Past Medical History Past Medical History: Asthma, Fibromyalgia Additional Past Medical History / Comment(s): ovarian cyst, neurocardogenic syncopy, gallstones History of Any Multi-Drug Resistant Organisms: None Reported Additional Past Surgical History / Comment(s): wisdom teeth, dental implant, upper GI scope Past Psychological History: Anxiety, Depression Smoking Status: Never smoker Past Alcohol Use History: None Reported Past Drug Use History: None Reported General Exam - General Exam Comments Initial Comments: General: The patient is awake and alert, in no distress Eye: +3 mm pupils are equal, round and reactive to light, extra-ocular mo vements are intact. No nystagmus. There is normal conjunctiva bilaterally. No signs of icterus. Ears, nose, mouth and throat: There are moist mucous membranes and no oral lesions. Neck: The neck is supple, there is no tenderness or JVD. Cardiovascular: There is a regular rate and rhythm. No murmur, rub or gallop is appreciated. Respiratory: Lungs are clear to auscultation, respirations are non-labored, breath sounds are equal. No wheezes, stridor, rales, or rhonchi. Gastrointestinal: Soft, non-distended, RUQ tenderness to palpation of the abdomen, abdomen is without masses or organomegaly noted. There is no rebound or guarding present. Musculoskeletal: Normal ROM, no tenderness. Strength 5/5. Sensation intact. Radial and DP pulses equal bilaterally 2+. Neurological: A&O x 3. CN II-XII intact grossly, There are no obvious motor or sensory deficits. Coordination appears grossly intact. Speech is normal. Skin: Skin is warm and dry and no rashes or lesions are noted. Psychiatric: Cooperative, appropriate mood & affect, normal judgment. Limitations: no limitations Course Vital Signs 08/15/20 08/15/20 08/15/20 13:43 13:59 15:26 Temperature 98.3 F 98.9 F Pulse Rate 104 H 99 74 Respiratory 18 18 18 Rate Blood Pressure 119/81 118/70 117/72 O2 Sat by Pulse 97 96 96 Oximetry Medical Decision Making - Medical Decision Making 24yo presenting for RUQ that past 16+ hours. Patient appears nontoxic on arrival, just uncomfortable. HX of stones. No hx of fever, afebrile on arrival. RUQ pain conssitent with suspected biliary colic. Appointment with surgery on Sunday. Pain controlled after meds. no significnat change in labs. bilirubin, WBC count stable. no fevers. pt discharged after re-evaluation appearing well. Discussed case with Dr. Pride who is agreeable to care plan and discharge. - Lab Data Result diagrams: 08/15/20 14:03 08/15/20 14:03 Lab Results 08/15/20 08/15/20 08/15/20 Range/Units 14:03 14:03 14:03 WBC 7.9 (3.8-10.6) k/uL RBC 4.38 (3.80-5.40) m/uL Hgb 13.2 (11.4-16.0) gm/dL Hct 38.2 (34.0-46.0) % MCV 87.3 (80.0-100.0) fL MCH 30.2 (25.0-35.0) pg MCHC 34.6 (31.0-37.0) g/dL RDW 12.2 (11.5-15.5) % Plt Count 391 (150-450) k/uL MPV 6.8 Neutrophils % 45 % Lymphocytes % 21 % Monocytes % 4 % Eosinophils % 28 % Basophils % 2 % Neutrophils # 3.6 (1.3-7.7) k/uL Lymphocytes # 1.7 (1.0-4.8) k/uL Monocytes # 0.3 (0-1.0) k/uL Eosinophils # 2.2 H (0-0.7) k/uL Basophils # 0.1 (0-0.2) k/uL Manual Slide Review Performed RBC Morphology Normal Sodium 138 (137-145) mmol/L Potassium 4.2 (3.5-5.1) mmol/L Chloride 106 (98-107) mmol/L Carbon Dioxide 24 (22-30) mmol/L Anion Gap 8 mmol/L BUN 12 (7-17) mg/dL Creatinine 0.71 (0.52-1.04) mg/dL Est GFR (CKD-EPI)AfAm >90 (>60 ml/min/1.73 sqM) Est GFR (CKD-EPI)NonAf >90 (>60 ml/min/1.73 sqM) Glucose 113 H (74-99) mg/dL Plasma Lactic Acid Ag (0.7-2.0) mmol/L Calcium 10.0 (8.4-10.2) mg/dL Total Bilirubin 0.2 (0.2-1.3) mg/dL AST 37 H (14-36) U/L ALT 44 H (4-34) U/L Alkaline Phosphatase 60 (38-126) U/L Total Protein 6.9 (6.3-8.2) g/dL Albumin 4.1 (3.5-5.0) g/dL Amylase 81 (30-110) U/L Lipase 110 (23-300) U/L Urine Color Colorless Urine Appearance Clear (Clear) Urine pH 6.5 (5.0-8.0) Ur Specific [place] 1.004 (1.001-1.035) Urine Protein Negative (Negative) Urine Glucose (UA) Negative (Negative) Urine Ketones Negative (Negative) Urine Blood Negative (Negative) Urine Nitrite Negative (Negative) Urine Bilirubin Negative (Negative) Urine Urobilinogen <2.0 (<2.0) mg/dL Ur Leukocyte Esterase Negative (Negative) Urine HCG, Qual (Not Detectd) 08/15/20 08/15/20 Range/Units 14:03 14:06 WBC (3.8-10.6) k/uL RBC (3.80-5.40) m/uL Hgb (11.4-16.0) gm/dL Hct (34.0-46.0) % MCV (80.0-100.0) fL MCH (25.0-35.0) pg MCHC (31.0-37.0) g/dL RDW (11.5-15.5) % Plt Count (150-450) k/uL MPV Neutrophils % % Lymphocytes % % Monocytes % % Eosinophils % % Basophils % % Neutrophils # (1.3-7.7) k/uL Lymphocytes # (1.0-4.8) k/uL Monocytes # (0-1.0) k/uL Eosinophils # (0-0.7) k/uL Basophils # (0-0.2) k/uL Manual Slide Review RBC Morphology Sodium (137-145) mmol/L Potassium (3.5-5.1) mmol/L Chloride (98-107) mmol/L Carbon Dioxide (22-30) mmol/L Anion Gap mmol/L BUN (7-17) mg/dL Creatinine (0.52-1.04) mg/dL Est GFR (CKD-EPI)AfAm (>60 ml/min/1.73 sqM) Est GFR (CKD-EPI)NonAf (>60 ml/min/1.73 sqM) Glucose (74-99) mg/dL Plasma Lactic Acid Ag 1.3 (0.7-2.0) mmol/L Calcium (8.4-10.2) mg/dL Total Bilirubin (0.2-1.3) mg/dL AST (14-36) U/L ALT (4-34) U/L Alkaline Phosphatase (38-126) U/L Total Protein (6.3-8.2) g/dL Albumin (3.5-5.0) g/dL Amylase (30-110) U/L Lipase (23-300) U/L Urine Color Urine Appearance (Clear) Urine pH (5.0-8.0) Ur Specific [place] (1.001-1.035) Urine Protein (Negative) Urine Glucose (UA) (Negative) Urine Ketones (Negative) Urine Blood (Negative) Urine Nitrite (Negative) Urine Bilirubin (Negative) Urine Urobilinogen (<2.0) mg/dL Ur Leukocyte Esterase (Negative) Urine HCG, Qual Not Detected (Not Detectd) Disposition Clinical Impression: RUQ pain, Hx of gallstones Disposition: HOME SELF-CARE Instructions (If sedation given, give patient instructions): Abdominal Pain (ED) Additional Instructions: Please use medication as discussed. Please follow-up with family doctor in the next 2 days, surgeon on Sunday as scheduled. Please return to emergency room if the symptoms increase or worsen or for any other concerns. Is patient prescribed a controlled substance at d/c from ED?: No Referrals: Nonstaff,Physician [Primary Care Provider] - 1-2 days Time of Disposition: 15:11
[2020-08-15 14:16] LABS: Basophils # (A) 0.1 k/uL (0-0.2); Basophils % (A) 2 %; Eosinophils # (A) 2.2 k/uL (0-0.7); Eosinophils % (A) 28 %; HCT 38.2 % (34.0-46.0); HGB 13.2 gm/dL (11.4-16.0); Lymphocytes # (A) 1.7 k/uL (1.0-4.8); Lymphocytes % (A) 21 %; MCH 30.2 pg (25.0-35.0); MCHC 34.6 g/dL (31.0-37.0); MCV 87.3 fL (80.0-100.0); Mean Platelet Volume 6.8; Monocytes # (A) 0.3 k/uL (0-1.0); Monocytes % (A) 4 %; Neutrophils # (A) 3.6 k/uL (1.3-7.7); Neutrophils % (A) 45 %; Platelet Count 391 k/uL (150-450); RBC 4.38 m/uL (3.80-5.40); RDW 12.2 % (11.5-15.5); WBC 7.9 k/uL (3.8-10.6)
[2020-08-15 14:27] LABS: Appearance,Urine Clear (Clear); Bilirubin,Urine Negative (Negative); Blood,Urine Negative (Negative); Color,Urine Colorless; Glucose,Urine (UA) Negative (Negative); Ketones,Urine Negative (Negative); Leukocyte Esterase,Urine Negative (Negative); Nitrite,Urine Negative (Negative); PH, Urine 6.5 (5.0-8.0); Protein,Urine Negative (Negative); Specific Gravity,Urine 1.004 (1.001-1.035); Urobilinogen,Urine <2.0 mg/dL (<2.0)
[2020-08-15 14:31] LABS: ALT 44 U/L (4-34); AST 37 U/L (14-36); African American GFR (CKD) >90 (>60 ml/min/1.73 sqM); Albumin 4.1 g/dL (3.5-5.0); Alkaline Phosphatase 60 U/L (38-126); Amylase 81 U/L (30-110); Anion Gap 8 mmol/L; Blood Urea Nitrogen 12 mg/dL (7-17); Carbon Dioxide 24 mmol/L (22-30); Chloride 106 mmol/L (98-107); Glucose 113 mg/dL (74-99); Lipase 110 U/L (23-300); Non-African American GFR(CKD) >90 (>60 ml/min/1.73 sqM); Potassium 4.2 mmol/L (3.5-5.1); Sodium 138 mmol/L (137-145); Total Bilirubin 0.2 mg/dL (0.2-1.3); Total Protein 6.9 g/dL (6.3-8.2)
[2020-08-15 15:27] VITALS: BP 117/72; PULSE 74; TEMP 98.9
[2020-08-15] MEDS ORDERED: ACET/COD 300 MG/30 MG STARTER PACK 6 TAB BTL PO STA (15:31)
== END 2020-08-15 15:34 | disposition home or self-care (01) ==
LOC: EC 13:41
DX: R10.11 Right upper quadrant pain (principal); R11.0 Nausea; J45.909 Unspecified asthma, uncomplicated; M79.7 Fibromyalgia; F32.9 Major depressive disorder, single episode, unspecified; F41.9 Anxiety disorder, unspecified; Z79.3 Long term (current) use of hormonal contraceptives; Z79.51 Long term (current) use of inhaled steroids; Z87.19 Personal history of other diseases of the digestive system
CPT/HCPCS: 36415; 80053; 82150; 83605; 83690; 85025; 81003; 81025; 99284; 96374; 96375; J2405; J1170

== ENCOUNTER 2020-09-01 07:35 | Day surgery (SDC) | payer OTHER ==
[2020-08-31 08:39] VITALS: BMI 31.3
[~2020-09-01 07:35] MED LIST: ACETAMINOPHEN TAB 500 MG TAB PO PRN; DEXAMETHASONE SOD PHOSPHATE 4 MG/ML 1 ML VIAL IV ONE; HEPARIN SODIUM,PORCINE/PF 5,000 UNIT/0.5 ML SYRINGE SQ PRN; HYDROmorphone 0.5 MG/0.5 ML SYRINGE IVP PRN; LIDOCAINE 1% (10MG/ML) FOR IV START INTRADERMA PRN; MIDAZOLAM 2 MG/2 ML VIAL IV PRN; ONDANSETRON 4 MG/2 ML VIAL IVP PRN; SCOPOLAMINE 1.5MG/72HR PATCH TRANSDERM ONE
[2020-09-01] MEDS: LACTATED RINGERS 1,000 ML IV SCH ×2 (07:53→08:15)
--- NOTE | 2020-09-01 08:30 | P.GSHP ---
History of Present Illness H&P Date: 09/01/20 Chief Complaint: Right upper quadrant pain This a 24-year-old female who presents today for laparoscopic cholecystectomy. Patient's had complete the right quadrant pain. She is found have gallstones on ultrasound. - Constitutional Constitutional: Reports as per HPI Past Medical History Past Medical History: Asthma, Fibromyalgia, Syncope Additional Past Medical History / Comment(s): ovarian cyst, neurocardogenic syncopy, gallstones History of Any Multi-Drug Resistant Organisms: None Reported Additional Past Surgical History / Comment(s): wisdom teeth, dental implant, upper GI scope Past Anesthesia/Blood Transfusion Reactions: No Reported Reaction Smoking Status: Never smoker - Past Family History Mother Family Medical History: No Reported History Medications and Allergies Home Medications Medication Instructions Recorded Confirmed Type Escitalopram Oxalate [Lexapro] 20 mg PO AC-SUPPER 01/09/19 09/01/20 History busPIRone HCl [Buspar] 10 mg PO AC-SUPPER 01/09/19 09/01/20 History Albuterol Nebulized [Ventolin 2.5 mg INHALATION RT-QID PRN 07/05/20 09/01/20 History Nebulized] Famotidine [Pepcid] 20 mg PO BID #30 tablet 07/05/20 09/01/20 Rx Fluticasone Nasal [place] [Flonase 1 spray EA NOSTRIL HS 07/05/20 09/01/20 History Nasal [place]] Fluticasone/Salmeterol [Advair 1 puff INHALATION RT-BID 07/05/20 09/01/20 History 250-50 Diskus] Loratadine [Claritin] 10 mg PO AC-SUPPER 07/05/20 09/01/20 History Midodrine HCl 2.5 mg PO TID 07/05/20 09/01/20 History buPROPion HCL [Wellbutrin XL] 300 mg PO AC-SUPPER 07/05/20 09/01/20 History Albuterol Inhaler [Ventolin Hfa 2 puff INHALATION RT-Q4H PRN 08/12/20 09/01/20 History Inhaler] Lessina 0.1-0.2mg 1 tab PO AC-SUPPER 08/12/20 09/01/20 History Ondansetron Odt [Zofran Odt] 4 mg PO Q8HR PRN #14 tab 08/12/20 09/01/20 Rx Pantoprazole Sodium [Protonix] 40 mg PO DAILY 08/12/20 09/01/20 History Simethicone Chew [Mylicon Chew] 40 mg PO QID PRN 08/12/20 09/01/20 History Allergies Allergy/AdvReac Type Severity Reaction Status Date / Time latex Allergy Rash/Hives Verified 09/01/20 08:03 sumatriptan [From Imitrex] AdvReac dizzy Verified 09/01/20 08:03 Surgical - Exam - General well developed, well nourished, no distress - Eyes PERRL - ENT normal pinna - Neck no masses - Respiratory normal expansion - Cardiovascular Rhythm: regular - Abdomen Abdomen: soft, non tender Assessment and Plan Assessment: Cholelithiasis. We'll perform laparoscopic cholecystectomy.
[2020-09-01] MEDS ORDERED: NEOSTIGMINE 1 MG/ML 10 ML VIAL ONE (08:41)
[2020-09-01] MEDS ORDERED: PROPOFOL 10 MG/ML 20 ML VIAL IV ONE (08:41)
[2020-09-01] MEDS ORDERED: LIDOCAINE 1% INJ 10MG/ML (20 ML MDV) ONE (08:41)
[2020-09-01] MEDS ORDERED: ROCURONIUM 10 MG/ML (5 ML VIAL) IV ONE (08:41)
[2020-09-01] MEDS ORDERED: diphenhydrAMINE 50 MG/ML 1 ML VIAL ONE (08:41)
[2020-09-01] MEDS ORDERED: fentaNYL (PF) 50 MCG/ML 2 ML AMP ONE (08:41)
[2020-09-01] MEDS ORDERED: GLYCOPYRROLATE 0.2 MG/ML 2 ML VIAL ONE (08:41)
[2020-09-01] MEDS ORDERED: MIDAZOLAM 2 MG/2 ML VIAL ONE (08:41)
[2020-09-01] MEDS ORDERED: BUPIVACAIN-EPI 0.5%-1:200,000 30 ML VIAL SQ ONE (09:10)
--- NOTE | 2020-09-01 09:31 | P.OP ---
Date of Procedure: 09/01/20 Preoperative Diagnosis: Cholecystitis, cholelithiasis Postoperative Diagnosis: Cholecystitis, cholelithiasis Procedure(s) Performed: Laparoscopic cholecystectomy Anesthesia: RUIZ Surgeon: Julien William Estimated Blood Loss (ml): 5 Pathology: other (Gallbladder) Condition: stable Disposition: PACU Description of Procedure: The patient was placed on the operating table. The patient received a general endotracheal tube anesthesia. The patients abdomen was prepped and draped in the usual sterile fashion. Through an infraumbilical stab incision, the fascia of the anterior abdominal wall was grasped with a pair of Kochers and then the Veress needle was placed in the peritoneal cavity. Position of the Veress needle was confirmed with positive drop test. The abdomen was then insufflated. After adequate insufflation, the 10 mm trocar was placed in the peritoneal cavity. Following this the laparoscope was placed in the peritoneal cavity. The patient was placed in the head-up, right side up position and then a 5 mm trocar was placed in the right lateral and right subcostal position under direct visualization. A 8 mm trocar was placed in the epigastric position. The gallbladder was grasped in the fundus and infundibulum. Traction on the gallbladder was placed in the lateral and the cephalad positions. The triangle of Calot was visualized.. The cystic duct was bluntly dissected until the union of the cystic duct and common bile duct wa s seen. A critical view of safety was achieved. The cystic duct was then divided and sealed with the Harmonic scissors. A PDS Endoloop was then placed throughout the cystic duct stump. The cystic artery divided and sealed with the Harmonic scissors. The gallbladder was then removed from the liver bed using Harmonic scissors. The gallbladder was then extracted through the epigastric port site. Operative field was checked for any bleeding spots and Harmonic scissors was used to coagulate the liver bed. The abdomen was irrigated. The trocars were removed. The skin was closed using interrupted 3-0 Vicryl suture. Dermabond dressing were applied. The patient tolerated the procedure well.
[2020-09-01 09:40] VITALS: RESP 16; TEMP 97.3
[2020-09-01] MEDS ORDERED: LACTATED RINGERS 1,000 ML IV ONE (10:55)
[2020-09-01] MEDS ORDERED: KETOROLAC 15 MG/ML 1 ML VIAL ONE (11:00)
[2020-09-01] MEDS ORDERED: KETOROLAC 15 MG/ML 1 ML VIAL IVP ONE (11:03)
[2020-09-01 12:26] VITALS: BP 103/71; PULSE 85
== END 2020-09-01 12:37 | disposition home or self-care (01) ==
LOC: OR 07:35
PROVIDERS: ATTEND Surgery
DX: K80.10 Calculus of gallbladder with chronic cholecystitis without obstruction (principal); J45.909 Unspecified asthma, uncomplicated; M79.7 Fibromyalgia; R07.9 Chest pain, unspecified; N83.209 Unspecified ovarian cyst, unspecified side; G47.33 Obstructive sleep apnea (adult) (pediatric); R55 Syncope and collapse; Z98.890 Other specified postprocedural states; Z79.51 Long term (current) use of inhaled steroids; Z79.899 Other long term (current) drug therapy; Z88.8 Allergy status to other drugs, medicaments and biological substances; Z91.040 Latex allergy status
CPT/HCPCS: 47562; 93005; 81025; 88304; J2250; J1200; J2710; J0690; J2405; J2001; J3010; J1885; J2704; J1644

== ENCOUNTER 2020-09-03 21:08 | Emergency (ER) | payer OTHER ==
[2020-09-03 21:12] VITALS: TEMP 97.6
[2020-09-03] MEDS ORDERED: SODIUM CHLORIDE 0.9% 1,000 ML IV STA (21:29)
[2020-09-03] MEDS ORDERED: HYDROmorphone 0.5 MG/0.5 ML SYRINGE IVP STA (21:29)
--- NOTE | 2020-09-03 21:32 | ED ---
Abdominal Pain HPI - General Chief Complaint: Abdominal Pain Stated Complaint: Post op pain Time Seen by Provider: 09/03/20 21:20 Source: patient Mode of arrival: ambulatory - History of Present Illness MD Complaint: abdominal pain Onset/Timin -: hour(s) Location: periumbilical Radiation: none Migration to: no migration Severity: moderate Quality: burning Consistency: constant Improves With: nothing Worsens With: nothing Associated Symptoms: nausea, constipation - Related Data Home Medications Medication Instructions Recorded Confirmed Escitalopram Oxalate [Lexapro] 20 mg PO AC-SUPPER 01/09/19 09/03/20 busPIRone HCl [Buspar] 10 mg PO AC-SUPPER 01/09/19 09/03/20 Albuterol Nebulized [Ventolin 2.5 mg INHALATION RT-QID PRN 07/05/20 09/03/20 Nebulized] Fluticasone Nasal [place] [Flonase 1 spray EA NOSTRIL HS 07/05/20 09/03/20 Nasal [place]] Fluticasone/Salmeterol [Advair 1 puff INHALATION RT-BID 07/05/20 09/03/20 250-50 Diskus] Loratadine [Claritin] 10 mg PO AC-SUPPER 07/05/20 09/03/20 Midodrine HCl 2.5 mg PO TID 07/05/20 09/03/20 buPROPion HCL [Wellbutrin XL] 300 mg PO AC-SUPPER 07/05/20 09/03/20 Albuterol Inhaler [Ventolin Hfa 2 puff INHALATION RT-Q4H PRN 08/12/20 09/03/20 Inhaler] Pantoprazole Sodium [Protonix] 40 mg PO DAILY 08/12/20 09/03/20 Simethicone Chew [Mylicon Chew] 40 mg PO QID PRN 08/12/20 09/03/20 Vienva 1 tab PO DAILY 09/03/20 09/03/20 Previous Rx's Medication Instructions Recorded Famotidine [Pepcid] 20 mg PO BID #30 tablet 07/05/20 Ondansetron Odt [Zofran Odt] 4 mg PO Q8HR PRN #14 tab 08/12/20 Acetaminophen Tab [Tylenol] 650 mg PO Q6H #30 tab 09/01/20 Docusate [Colace] 100 mg PO BID #20 capsule 09/01/20 Ibuprofen [Motrin] 600 mg PO Q6HR PRN #40 tab 09/01/20 oxyCODONE HCL [OxyIR] 5 mg PO Q6H PRN 3 Days #10 tab 09/01/20 Allergies Allergy/AdvReac Type Severity Reaction Status Date / Time latex Allergy Rash/Hives Verified 09/03/20 22:01 sumatriptan [From Imitrex] AdvReac dizzy Verified 09/03/20 22:01 Review of Systems ROS Statement: Those systems with pertinent positive or pertinent negative responses have been documented in the HPI. ROS Other: All systems not noted in ROS Statement are negative. Constitutional: Denies: fever, chills Respiratory: Denies: cough, dyspnea Cardiovascular: Denies: chest pain, palpitations, edema Gastrointestinal: Reports: abdominal pain, nausea, constipation. Denies: vomiting, diarrhea, melena, hematochezia Genitourinary: Denies: dysuria, hematuria Musculoskeletal: Denies: back pain Skin: Denies: rash Neurological: Denies: headache, weakness, numbness Past Medical History Past Medical History: Asthma, Fibromyalgia, Syncope Additional Past Medical History / Comment(s): ovarian cyst, neurocardogenic syncopy, gallstones History of Any Multi-Drug Resistant Organisms: None Reported Past Surgical History: Cholecystectomy Additional Past Surgical History / Comment(s): wisdom teeth, dental implant, upper GI scope Past Anesthesia/Blood Transfusion Reactions: No Reported Reaction Past Psychological History: Anxiety, Depression Smoking Status: Never smoker Past Alcohol Use History: None Reported Past Drug Use History: None Reported - Past Family History Mother Family Medical History: No Reported History General Exam General appearance: alert, in no apparent distress Head exam: Present: atraumatic, normocephalic Eye exam: Present: normal appearance. Absent: scleral icterus, conjunctival injection ENT exam: Present: normal oropharynx Neck exam: Present: normal inspection Respiratory exam: Present: normal lung sounds bilaterally. Absent: respiratory distress, wheezes, rales, rhonchi, stridor Cardiovascular Exam: Present: regular rate, normal rhythm, normal heart sounds. Absent: systolic murmur, diastolic murmur, rubs, gallop GI/Abdominal exam: Present: soft, hypoactive bowel sounds, other (The patient's post surgical incisions appear to be healing well. They are clean dry and intact. There is no a abnormal warmth, erythema, or tenderness.). Absent: distended, tenderness, guarding, rebound, rigid, mass, pulsatile mass, hernia Extremities exam: Present: normal inspection, normal capillary refill. Absent: pedal edema, calf tenderness Back exam: Present: normal inspection. Absent: CVA tenderness (R), CVA tenderness (L) Neurological exam: Present: alert Skin exam: Present: warm, dry, intact, normal color. Absent: rash Course Vital Signs 09/03/20 09/03/20 21:09 22:49 Temperature 97.6 F Pulse Rate 65 74 Respiratory 19 18 Rate Blood Pressure 124/80 120/80 O2 Sat by Pulse 98 97 Oximetry Medical Decision Making - Lab Data Result diagrams: 09/03/20 21:47 09/03/20 21:47 Lab Results 09/03/20 09/03/20 09/03/20 Range/Units 21:47 21:47 21:47 WBC 8.2 (3.8-10.6) k/uL RBC 4.55 (3.80-5.40) m/uL Hgb 13.3 (11.4-16.0) gm/dL Hct 39.9 (34.0-46.0) % MCV 87.8 (80.0-100.0) fL MCH 29.3 (25.0-35.0) pg MCHC 33.3 (31.0-37.0) g/dL RDW 12.3 (11.5-15.5) % Plt Count 373 (150-450) k/uL MPV 7.1 Neutrophils % 43 % Lymphocytes % 33 % Monocytes % 5 % Eosinophils % 16 % Basophils % 1 % Neutrophils # 3.5 (1.3-7.7) k/uL Lymphocytes # 2.7 (1.0-4.8) k/uL Monocytes # 0.4 (0-1.0) k/uL Eosinophils # 1.3 H (0-0.7) k/uL Basophils # 0.1 (0-0.2) k/uL Sodium 138 (137-145) mmol/L Potassium 4.2 (3.5-5.1) mmol/L Chloride 102 (98-107) mmol/L Carbon Dioxide 30 (22-30) mmol/L Anion Gap 6 mmol/L BUN 14 (7-17) mg/dL Creatinine 0.87 (0.52-1.04) mg/dL Est GFR (CKD-EPI)AfAm >90 (>60 ml/min/1.73 sqM) Est GFR (CKD-EPI)NonAf >90 (>60 ml/min/1.73 sqM) Glucose 80 (74-99) mg/dL Plasma Lactic Acid Ag 1.2 (0.7-2.0) mmol/L Calcium 9.8 (8.4-10.2) mg/dL Total Bilirubin <0.1 L (0.2-1.3) mg/dL AST 50 H (14-36) U/L ALT 79 H (4-34) U/L Alkaline Phosphatase 51 (38-126) U/L Total Protein 6.6 (6.3-8.2) g/dL Albumin 4.0 (3.5-5.0) g/dL Amylase 81 (30-110) U/L Lipase 105 (23-300) U/L Disposition Clinical Impression: Abdominal pain Disposition: HOME SELF-CARE Condition: Good Instructions (If sedation given, give patient instructions): Abdominal Pain (ED) Is patient prescribed a controlled substance at d/c from ED?: No Referrals: Nonstaff,Physician [Primary Care Provider] - 1-2 days
--- NOTE | 2020-09-03 22:20 | XR ---
EXAMINATION TYPE: XR KUB DATE OF EXAM: 09/03/2020 COMPARISON: NONE HISTORY: Pain TECHNIQUE: 2 views upright FINDINGS: There is no sign of intestinal obstruction or pneumoperitoneum. Fecal pattern is normal. Th ere is no evidence of a mass. There are no pathologic calcifications over the kidneys. Lung bases are clear. There are clips from cholecystectomy. IMPRESSION: Nonacute abdomen.
[2020-09-03 22:29] LABS: ALT 79 U/L (4-34); AST 50 U/L (14-36); African American GFR (CKD) >90 (>60 ml/min/1.73 sqM); Alkaline Phosphatase 51 U/L (38-126); Amylase 81 U/L (30-110); Anion Gap 6 mmol/L; Blood Urea Nitrogen 14 mg/dL (7-17); Calcium 9.8 mg/dL (8.4-10.2); Carbon Dioxide 30 mmol/L (22-30); Chloride 102 mmol/L (98-107); Glucose 80 mg/dL (74-99); Lipase 105 U/L (23-300); Non-African American GFR(CKD) >90 (>60 ml/min/1.73 sqM); Potassium 4.2 mmol/L (3.5-5.1); Sodium 138 mmol/L (137-145); Total Bilirubin <0.1 mg/dL (0.2-1.3); Total Protein 6.6 g/dL (6.3-8.2)
[2020-09-03 22:34] LABS: Basophils # (A) 0.1 k/uL (0-0.2); Basophils % (A) 1 %; Eosinophils # (A) 1.3 k/uL (0-0.7); Eosinophils % (A) 16 %; HCT 39.9 % (34.0-46.0); HGB 13.3 gm/dL (11.4-16.0); Lymphocytes # (A) 2.7 k/uL (1.0-4.8); Lymphocytes % (A) 33 %; MCH 29.3 pg (25.0-35.0); MCHC 33.3 g/dL (31.0-37.0); MCV 87.8 fL (80.0-100.0); Mean Platelet Volume 7.1; Monocytes # (A) 0.4 k/uL (0-1.0); Monocytes % (A) 5 %; Neutrophils # (A) 3.5 k/uL (1.3-7.7); Neutrophils % (A) 43 %; Platelet Count 373 k/uL (150-450); RBC 4.55 m/uL (3.80-5.40); RDW 12.3 % (11.5-15.5); WBC 8.2 k/uL (3.8-10.6)
[2020-09-03 22:51] VITALS: BP 120/80; PULSE 74; RESP 18
== END 2020-09-03 23:37 | disposition home or self-care (01) ==
LOC: EC 21:08
DX: R10.33 Periumbilical pain (principal); G89.18 Other acute postprocedural pain; K59.00 Constipation, unspecified; R11.0 Nausea; J45.909 Unspecified asthma, uncomplicated; M79.7 Fibromyalgia; F41.9 Anxiety disorder, unspecified; F32.9 Major depressive disorder, single episode, unspecified; Z79.51 Long term (current) use of inhaled steroids
CPT/HCPCS: 36415; 80053; 82150; 83605; 83690; 85025; 74018; 99284; 96374; 96361; J1170

== ENCOUNTER 2020-09-21 10:51 | Emergency (ER) | payer OTHER ==
[2020-09-21 10:56] VITALS: RESP 18; TEMP 97.9
[2020-09-21] MEDS ORDERED: SODIUM CHLORIDE 0.9% 500 ML 500 ML IV STA (11:25)
[2020-09-21] MEDS ORDERED: SODIUM CHLORIDE 0.9% 1,000 ML IV STA (11:25)
[2020-09-21] MEDS ORDERED: diphenhydrAMINE 50 MG/ML 1 ML VIAL IVP STA (11:25)
[2020-09-21] MEDS ORDERED: ONDANSETRON 4 MG/2 ML VIAL IVP STA (11:25)
--- NOTE | 2020-09-21 11:44 | ED ---
Abdominal Pain HPI - General Chief Complaint: Abdominal Pain Stated Complaint: NVD/post surg 09/01/20 Abd pain Time Seen by Provider: 09/21/20 11:24 Source: patient, RN notes reviewed Mode of arrival: ambulatory Limitations: no limitations - History of Present Illness Initial Comments: 24-year-old female presents emergency Department with chief complaint of nausea vomiting abdominal pain. Patient states that she felt like she had a gallbladder attack. She states she had surgery on 09/01/[address] William for cholecystectomy. Patient states the pain lasted 3-[address] states that she did have some diarrhea slight nausea. Patient states that she did have an episode of emesis that seemed to improve some of her symptoms. Denies any constipation no fevers chills no chest pain or shortness breath - Related Data Home Medications Medication Instructions Recorded Confirmed Escitalopram Oxalate [Lexapro] 20 mg PO AC-SUPPER 01/09/19 09/03/20 busPIRone HCl [Buspar] 10 mg PO AC-SUPPER 01/09/19 09/03/20 Albuterol Nebulized [Ventolin 2.5 mg INHALATION RT-QID PRN 07/05/20 09/03/20 Nebulized] Fluticasone Nasal [place] [Flonase 1 spray EA NOSTRIL HS 07/05/20 09/03/20 Nasal [place]] Fluticasone/Salmeterol [Advair 1 puff INHALATION RT-BID 07/05/20 09/03/20 250-50 Diskus] Loratadine [Claritin] 10 mg PO AC-SUPPER 07/05/20 09/03/20 Midodrine HCl 2.5 mg PO TID 07/05/20 09/03/20 buPROPion HCL [Wellbutrin XL] 300 mg PO AC-SUPPER 07/05/20 09/03/20 Albuterol Inhaler [Ventolin Hfa 2 puff INHALATION RT-Q4H PRN 08/12/20 09/03/20 Inhaler] Pantoprazole Sodium [Protonix] 40 mg PO DAILY 08/12/20 09/03/20 Simethicone Chew [Mylicon Chew] 40 mg PO QID PRN 08/12/20 09/03/20 Vienva 1 tab PO DAILY 05/28/21 05/28/21 Previous Rx's Medication Instructions Recorded Famotidine [Pepcid] 20 mg PO BID #30 tablet 07/05/20 Ondansetron Odt [Zofran Odt] 4 mg PO Q8HR PRN #14 tab 08/12/20 Acetaminophen Tab [Tylenol] 650 mg PO Q6H #30 tab 09/01/20 Docusate [Colace] 100 mg PO BID #20 capsule 09/01/20 Ibuprofen [Motrin] 600 mg PO Q6HR PRN #40 tab 09/01/20 oxyCODONE HCL [OxyIR] 5 mg PO Q6H PRN 3 Days #10 tab 09/01/20 Allergies Allergy/AdvReac Type Severity Reaction Status Date / Time latex Allergy Rash/Hives Verified 09/21/20 10:56 sumatriptan [From Imitrex] AdvReac dizzy Verified 09/21/20 10:56 Review of Systems ROS Statement: Those systems with pertinent positive or pertinent negative responses have been documented in the HPI. ROS Other: All systems not noted in ROS Statement are negative. Past Medical History Past Medical History: Asthma, Fibromyalgia, Syncope Additional Past Medical History / Comment(s): ovarian cyst, neurocardogenic syncopy, gallstones History of Any Multi-Drug Resistant Organisms: None Reported Past Surgical History: Cholecystectomy Additional Past Surgical History / Comment(s): wisdom teeth, dental implant, upper GI scope Past Anesthesia/Blood Transfusion Reactions: No Reported Reaction Past Psychological History: Anxiety, Depression Smoking Status: Never smoker Past Alcohol Use History: None Reported Past Drug Use History: None Reported - Past Family History Mother Family Medical History: No Reported History General Exam Limitations: no limitations General appearance: alert, in no apparent distress Head exam: Present: atraumatic, normocephalic, normal inspection Neck exam: Present: normal inspection. Absent: tenderness, meningismus, lymphadenopathy Respiratory exam: Present: normal lung sounds bilaterally. Absent: respiratory distress, wheezes, rales, rhonchi, stridor Cardiovascular Exam: Present: regular rate, normal rhythm, normal heart sounds. Absent: systolic murmur, diastolic murmur, rubs, gallop, clicks GI/Abdominal exam: Present: soft, tenderness (Mild right-sided), normal bowel sounds. Absent: distended, guarding, rebound, rigid Back exam: Absent: CVA tenderness (R), CVA tenderness (L) Neurological exam: Present: alert Skin exam: Present: warm, dry, intact, normal color. Absent: rash Course Vital Signs 09/21/20 10:53 Temperature 97.9 F Pulse Rate 85 Respiratory 18 Rate Blood Pressure 120/82 O2 Sat by Pulse 95 Oximetry Medical Decision Making - Medical Decision Making Laboratory is unremarkable patient is asymptomatic is some was hydrated will be discharged in stable condition return parameters were discussed. - Lab Data Result diagrams: 09/21/20 11:42 09/21/20 11:42 Lab Results 09/21/20 09/21/20 09/21/20 Range/Units 11:42 11:42 11:42 WBC 6.3 (3.8-10.6) k/uL RBC 4.01 (3.80-5.40) m/uL Hgb 12.2 (11.4-16.0) gm/dL Hct 34.8 (34.0-46.0) % MCV 86.9 (80.0-100.0) fL MCH 30.5 (25.0-35.0) pg MCHC 35.1 (31.0-37.0) g/dL RDW 12.6 (11.5-15.5) % Plt Count 340 (150-450) k/uL MPV 7.1 Neutrophils % 47 % Lymphocytes % 29 % Monocytes % 5 % Eosinophils % 16 % Basophils % 1 % Neutrophils # 3.0 (1.3-7.7) k/uL Lymphocytes # 1.9 (1.0-4.8) k/uL Monocytes # 0.3 (0-1.0) k/uL Eosinophils # 1.0 H (0-0.7) k/uL Basophils # 0.1 (0-0.2) k/uL Sodium (137-145) mmol/L Potassium (3.5-5.1) mmol/L Chloride (98-107) mmol/L Carbon Dioxide (22-30) mmol/L Anion Gap mmol/L BUN (7-17) mg/dL Creatinine (0.52-1.04) mg/dL Est GFR (CKD-EPI)AfAm (>60 ml/min/1.73 sqM) Est GFR (CKD-EPI)NonAf (>60 ml/min/1.73 sqM) Glucose (74-99) mg/dL Calcium (8.4-10.2) mg/dL Total Bilirubin (0.2-1.3) mg/dL AST (14-36) U/L ALT (4-34) U/L Alkaline Phosphatase (38-126) U/L Total Protein (6.3-8.2) g/dL Albumin (3.5-5.0) g/dL Amylase (30-110) U/L Lipase (23-300) U/L Urine Color Yellow Urine Appearance Clear (Clear) Urine pH 5.0 (5.0-8.0) Ur Specific [place] 1.021 (1.001-1.035) Urine Protein Negative (Negative) Urine Glucose (UA) Negative (Negative) Urine Ketones Negative (Negative) Urine Blood Negative (Negative) Urine Nitrite Negative (Negative) Urine Bilirubin Negative (Negative) Urine Urobilinogen <2.0 (<2.0) mg/dL Ur Leukocyte Esterase Negative (Negative) Urine HCG, Qual Not Detected (Not Detectd) 09/21/20 Range/Units 11:42 WBC (3.8-10.6) k/uL RBC (3.80-5.40) m/uL Hgb (11.4-16.0) gm/dL Hct (34.0-46.0) % MCV (80.0-100.0) fL MCH (25.0-35.0) pg MCHC (31.0-37.0) g/dL RDW (11.5-15.5) % Plt Count (150-450) k/uL MPV Neutrophils % % Lymphocytes % % Monocytes % % Eosinophils % % Basophils % % Neutrophils # (1.3-7.7) k/uL Lymphocytes # (1.0-4.8) k/uL Monocytes # (0-1.0) k/uL Eosinophils # (0-0.7) k/uL Basophils # (0-0.2) k/uL Sodium 138 (137-145) mmol/L Potassium 4.4 (3.5-5.1) mmol/L Chloride 105 (98-107) mmol/L Carbon Dioxide 28 (22-30) mmol/L Anion Gap 5 mmol/L BUN 14 (7-17) mg/dL Creatinine 0.67 (0.52-1.04) mg/dL Est GFR (CKD-EPI)AfAm >90 (>60 ml/min/1.73 sqM) Est GFR (CKD-EPI)NonAf >90 (>60 ml/min/1.73 sqM) Glucose 92 (74-99) mg/dL Calcium 9.7 (8.4-10.2) mg/dL Total Bilirubin <0.1 L (0.2-1.3) mg/dL AST 35 (14-36) U/L ALT 41 H (4-34) U/L Alkaline Phosphatase 50 (38-126) U/L Total Protein 6.4 (6.3-8.2) g/dL Albumin 3.9 (3.5-5.0) g/dL Amylase 80 (30-110) U/L Lipase 104 (23-300) U/L Urine Color Urine Appearance (Clear) Urine pH (5.0-8.0) Ur Specific [place] (1.001-1.035) Urine Protein (Negative) Urine Glucose (UA) (Negative) Urine Ketones (Negative) Urine Blood (Negative) Urine Nitrite (Negative) Urine Bilirubin (Negative) Urine Urobilinogen (<2.0) mg/dL Ur Leukocyte Esterase (Negative) Urine HCG, Qual (Not Detectd) Disposition Clinical Impression: Abdominal pain Disposition: HOME SELF-CARE Condition: Stable Instructions (If sedation given, give patient instructions): Abdominal Pain (ED) Additional Instructions: Please return to the Emergency Department if symptoms worsen or any other concerns. Is patient prescribed a controlled substance at d/c from ED?: No Referrals: Nonstaff,Physician [Primary Care Provider] - 1-2 days Time of Disposition: 12:37
[2020-09-21 11:59] LABS: Basophils # (A) 0.1 k/uL (0-0.2); Basophils % (A) 1 %; Eosinophils % (A) 16 %; HCT 34.8 % (34.0-46.0); HGB 12.2 gm/dL (11.4-16.0); Lymphocytes # (A) 1.9 k/uL (1.0-4.8); Lymphocytes % (A) 29 %; MCH 30.5 pg (25.0-35.0); MCHC 35.1 g/dL (31.0-37.0); MCV 86.9 fL (80.0-100.0); Mean Platelet Volume 7.1; Monocytes # (A) 0.3 k/uL (0-1.0); Monocytes % (A) 5 %; Neutrophils % (A) 47 %; Platelet Count 340 k/uL (150-450); RBC 4.01 m/uL (3.80-5.40); RDW 12.6 % (11.5-15.5); WBC 6.3 k/uL (3.8-10.6)
[2020-09-21 12:01] LABS: Appearance,Urine Clear (Clear); Bilirubin,Urine Negative (Negative); Blood,Urine Negative (Negative); Color,Urine Yellow; Glucose,Urine (UA) Negative (Negative); Ketones,Urine Negative (Negative); Leukocyte Esterase,Urine Negative (Negative); Nitrite,Urine Negative (Negative); Protein,Urine Negative (Negative); Specific Gravity,Urine 1.021 (1.001-1.035); Urobilinogen,Urine <2.0 mg/dL (<2.0)
[2020-09-21 12:12] LABS: ALT 41 U/L (4-34); AST 35 U/L (14-36); African American GFR (CKD) >90 (>60 ml/min/1.73 sqM); Albumin 3.9 g/dL (3.5-5.0); Alkaline Phosphatase 50 U/L (38-126); Amylase 80 U/L (30-110); Anion Gap 5 mmol/L; Blood Urea Nitrogen 14 mg/dL (7-17); Calcium 9.7 mg/dL (8.4-10.2); Carbon Dioxide 28 mmol/L (22-30); Chloride 105 mmol/L (98-107); Glucose 92 mg/dL (74-99); Lipase 104 U/L (23-300); Non-African American GFR(CKD) >90 (>60 ml/min/1.73 sqM); Potassium 4.4 mmol/L (3.5-5.1); Sodium 138 mmol/L (137-145); Total Bilirubin <0.1 mg/dL (0.2-1.3); Total Protein 6.4 g/dL (6.3-8.2)
[2020-09-21 12:50] VITALS: BP 122/90; PULSE 88
== END 2020-09-21 13:30 | disposition home or self-care (01) ==
LOC: EC 10:51
DX: R10.9 Unspecified abdominal pain (principal); J45.909 Unspecified asthma, uncomplicated; M79.7 Fibromyalgia; F32.9 Major depressive disorder, single episode, unspecified; F41.9 Anxiety disorder, unspecified; Z79.1 Long term (current) use of non-steroidal anti-inflammatories (NSAID); Z90.49 Acquired absence of other specified parts of digestive tract
CPT/HCPCS: 96374; 96375; 99284; 36415; 80053; 82150; 83690; 85025; 81003; 81025; J1200; J2405; 96361

== ENCOUNTER 2020-10-04 17:27 | Emergency (ER) | payer OTHER ==
[2020-10-04 17:42] VITALS: BP 116/81; PULSE 96; RESP 16; TEMP 98.3
--- NOTE | 2020-10-04 18:59 | ED ---
Upper Extremity HPI - General Chief Complaint: Extremity Injury, Upper Stated Complaint: fall Time Seen by Provider: 10/04/20 18:33 Source: patient, RN notes reviewed Mode of arrival: ambulatory Limitations: no limitations - History of Present Illness Initial Comments: This a 24-year-old female presents emergency Department with chief complaint of left shoulder injury. She states that she tripped over her dog 2 days ago states that she's been having pain. Patient states she also developed some tingling in her left hand and wrist she is right-hand dominant no prior carpal tunnel. Denies any head injury no loss conscious. She has full range motion of her left arm. Denies any weakness. - Related Data Home Medications Medication Instructions Recorded Confirmed Escitalopram Oxalate [Lexapro] 20 mg PO AC-SUPPER 01/09/19 09/03/20 busPIRone HCl [Buspar] 10 mg PO AC-SUPPER 01/09/19 09/03/20 Albuterol Nebulized [Ventolin 2.5 mg INHALATION RT-QID PRN 07/05/20 09/03/20 Nebulized] Fluticasone Nasal [place] [Flonase 1 spray EA NOSTRIL HS 07/05/20 09/03/20 Nasal [place]] Fluticasone/Salmeterol [Advair 1 puff INHALATION RT-BID 07/05/20 09/03/20 250-50 Diskus] Loratadine [Claritin] 10 mg PO AC-SUPPER 07/05/20 09/03/20 Midodrine HCl 2.5 mg PO TID 07/05/20 09/03/20 buPROPion HCL [Wellbutrin XL] 300 mg PO AC-SUPPER 07/05/20 09/03/20 Albuterol Inhaler [Ventolin Hfa 2 puff INHALATION RT-Q4H PRN 08/12/20 09/03/20 Inhaler] Pantoprazole Sodium [Protonix] 40 mg PO DAILY 08/12/20 09/03/20 Simethicone Chew [Mylicon Chew] 40 mg PO QID PRN 08/12/20 09/03/20 Vienva 1 tab PO DAILY 09/03/20 09/03/20 Previous Rx's Medication Instructions Recorded Famotidine [Pepcid] 20 mg PO BID #30 tablet 03/29/21 Ondansetron Odt [Zofran Odt] 4 mg PO Q8HR PRN #14 tab 08/12/20 Acetaminophen Tab [Tylenol] 650 mg PO Q6H #30 tab 09/01/20 Docusate [Colace] 100 mg PO BID #20 capsule 09/01/20 Ibuprofen [Motrin] 600 mg PO Q6HR PRN #40 tab 09/01/20 oxyCODONE HCL [OxyIR] 5 mg PO Q6H PRN 3 Days #10 tab 09/01/20 Allergies Allergy/AdvReac Type Severity Reaction Status Date / Time latex Allergy Rash/Hives Verified 09/21/20 10:56 sumatriptan [From Imitrex] AdvReac dizzy Verified 09/21/20 10:56 Review of Systems ROS Statement: Those systems with pertinent positive or pertinent negative responses have been documented in the HPI. ROS Other: All systems not noted in ROS Statement are negative. Past Medical History Past Medical History: Asthma, Fibromyalgia, Syncope Additional Past Medical History / Comment(s): ovarian cyst, neurocardogenic syncopy, gallstones History of Any Multi-Drug Resistant Organisms: None Reported Past Surgical History: Cholecystectomy Additional Past Surgical History / Comment(s): wisdom teeth, dental implant, upper GI scope Past Anesthesia/Blood Transfusion Reactions: No Reported Reaction Past Psychological History: Anxiety, Depression Smoking Status: Never smoker Past Alcohol Use History: None Reported Past Drug Use History: None Reported - Past Family History Mother Family Medical History: No Reported History General Exam Limitations: no limitations General appearance: alert, in no apparent distress Head exam: Present: atraumatic, normocephalic, normal inspection Eye exam: Present: normal appearance, PERRL, EOMI. Absent: scleral icterus, conjunctival injection, periorbital swelling Neck exam: Present: normal inspection, full ROM. Absent: tenderness, meningismus, lymphadenopathy Respiratory exam: Present: normal lung sounds bilaterally. Absent: respiratory distress, wheezes, rales, rhonchi, stridor Cardiovascular Exam: Present: regular rate, normal rhythm, normal heart sounds. Absent: systolic murmur, diastolic murmur, rubs, gallop, clicks Extremities exam: Present: other (Left shoulder mild tenderness full range of motion neurovascular intact superintendent marine strength is equal bilaterally radial pulses equal equal color equal warmth) Neurological exam: Present: alert, CN II-XII intact, reflexes normal. Absent: motor sensory deficit Course Vital Signs 10/04/20 17:40 Temperature 98.3 F Pulse Rate 96 Respiratory 16 Rate Blood Pressure 116/81 O2 Sat by Pulse 96 Oximetry Medical Decision Making - Medical Decision Making X-rays unremarkable. Patient has left shoulder contusion with some radicular symptoms. Patient advised take anti-inflammatories will follow-up with orthopedics if no improvement return parameters were discussed. Disposition Clinical Impression: Contusion of left shoulder, Radicular pain in left arm Disposition: HOME SELF-CARE Instructions (If sedation given, give patient instructions): Hand Fracture (ED ), Contusion in Adults (ED) Additional Instructions: Please return to the Emergency Department if symptoms worsen or any other concerns. Is patient prescribed a controlled substance at d/c from ED?: No Referrals: Nonstaff,Physician [Primary Care Provider] - 1-2 days Reece Earl DO [Doctor of Osteopathic Medicine] - 1-2 days Time of Disposition: 19:12
--- NOTE | 2020-10-04 19:01 | XR ---
Result: Clinical History: Pain status post fall. Comparison: None available. Technique: 3 views of the left shoulder. Findings: The bone mineralization is appropriate for age. No acute fracture or dislocation is seen. The acromioclavicular and glenohumeral joints are preserve d . The humeral head is well-seated in the glenoid. The visualized lung is clear. Impression: No acute osseous abnormality.
== END 2020-10-04 19:28 | disposition home or self-care (01) ==
LOC: EC 17:27
DX: S40.012A Contusion of left shoulder, initial encounter (principal); J45.909 Unspecified asthma, uncomplicated; M79.7 Fibromyalgia; Z79.1 Long term (current) use of non-steroidal anti-inflammatories (NSAID); Z79.51 Long term (current) use of inhaled steroids; Z79.899 Other long term (current) drug therapy; Z91.040 Latex allergy status; W01.0XXA Fall on same level from slipping, tripping and stumbling without subsequent striking against object, initial encounter
CPT/HCPCS: 99284

== ENCOUNTER 2020-10-21 12:44 | Inpatient (IN) | payer MEDICAID, OTHER ==
--- NOTE | 2020-10-21 13:22 | ED ---
General Adult HPI - General Chief complaint: Psychiatric Symptoms Stated complaint: mental health Time Seen by Provider: 10/21/20 13:00 Source: patient, EMS, RN notes reviewed, old records reviewed Mode of arrival: EMS - History of Present Illness Initial comments: Is a 24-year-old female with past medical history significant for depression and PTSD. Patient states she was fired from her job today and as she walked out she felt so the coworker for laughing at her and the center into state of depression and she wanted to kill herself. Patient states it's extremely hostile is when the car and locked herself in and she was locked in for about an hour and she was hoping to fall asleep in just a minor car. Patient states she has attempted suicide in the past by overdosing on medications. Patient denies any drinking or alcohol use. Patient states she is estranged from her. She lives with grandfather. Patient is not and does not have any children. Patient s tates that she was recently diagnosed with C. diff is on Flagyl 3 times a day. Patient denies any other physical complaints such as diarrhea. - Related Data Home Medications Medication Instructions Recorded Confirmed Escitalopram Oxalate [Lexapro] 20 mg PO AC-SUPPER 01/09/19 10/21/20 busPIRone HCl [Buspar] 10 mg PO AC-SUPPER 01/09/19 10/21/20 Fluticasone Nasal [place] [Flonase 1 spray EA NOSTRIL HS 07/05/20 10/21/20 Nasal [place]] Fluticasone/Salmeterol [Advair 1 puff INHALATION RT-BID 07/05/20 10/21/20 250-50 Diskus] Loratadine [Claritin] 10 mg PO AC-SUPPER 07/05/20 10/21/20 buPROPion HCL [Wellbutrin XL] 300 mg PO AC-SUPPER 07/05/20 10/21/20 Inulin/Chromium Picolinate [Fiber 1 tab PO HS 10/21/20 10/21/20 Gummies Chew] Orsythia 1 tab PO HS 10/21/20 10/21/20 Probiotic Gummy 1 tab PO HS 10/21/20 10/21/20 metroNIDAZOLE [Flagyl] 500 mg PO Q8H 10/21/20 10/21/20 Allergies Allergy/AdvReac Type Severity Reaction Status Date / Time latex Allergy Rash/Hives Verified 10/21/20 14:48 sumatriptan [From Imitrex] AdvReac dizzy Verified 10/21/20 14:48 Review of Systems ROS Statement: Those systems with pertinent positive or pertinent negative responses have been documented in the HPI. ROS Other: All systems not noted in ROS Statement are negative. Past Medical History Past Medical History: Asthma, Fibromyalgia, Syncope Additional Past Medical History / Comment(s): ovarian cyst, neurocardogenic syncopy, gallstones History of Any Multi-Drug Resistant Organisms: None Reported Past Surgical History: Cholecystectomy Additional Past Surgical History / Comment(s): wisdom teeth, dental implant, upper GI scope Past Anesthesia/Blood Transfusion Reactions: No Reported Reaction Past Psychological History: Anxiety, Depression Smoking Status: Never smoker Past Alcohol Use History: None Reported Past Drug Use History: None Reported - Past Family History Mother Family Medical History: No Reported History General Exam - General Exam Comments Initial Comments: GENERAL: Patient is well-developed and well-nourished. Patient is nontoxic and well- hydrated and is in no acute distress ENT: Neck is soft and supple. No significant lymphadenopathy is noted. Oropharynx is clear. Moist mucous membranes. Neck has full range of motion without eliciting any pain. EYES: The sclera were anicteric and conjunctiva were pink and moist. Extraocular movements were intact and pupils were equal round and reactive to light. Eyelids were unremarkable. PULMONARY: Unlabored respirations. Good breath sounds bilaterally. No audible rales rhonchi or wheezing was noted. CARDIOVASCULAR: There is a regular rate and rhythm without any murmurs gallops or rubs. ABDOMEN: Soft and nontender with normal bowel sounds. SKIN: Skin is clear with no lesions or rashes and otherwise unremarkable. NEUROLOGIC: Patient is alert and oriented x3. Cranial nerves II through XII are grossly intact. Motor and sensory are also intact. Normal speech, volume and content. Symmetrical smile. MUSCULOSKELETAL: Normal extremities with adequate strength and full range of motion. No lower extremity swelling or edema. No calf tenderness. LYMPHATICS: No significant lymphadenopathy is noted PSYCHIATRIC: Patient has tearful throughout the interview. Patient also states she does want to kill herself she wished she could just . Course Vital Signs 10/21/20 12:55 Temperature 99.1 F Pulse Rate 85 Respiratory 18 Rate Blood Pressure 117/59 O2 Sat by Pulse 99 Oximetry Medical Decision Making - Medical Decision Making EPS evaluated the patient and determined the patient needed to be admitted to the patient was admitted to the psychiatric floor. - Lab Data Lab Results 10/21/20 Range/Units 13:21 Urine Opiates Screen Not Detected (NotDetected) Ur Oxycodone Screen Not Detected (NotDetected) Urine Methadone Screen Not Detected (NotDetected) Ur Propoxyphene Screen Not Detected (NotDetected) Ur Barbiturates Screen Not Detected (NotDetected) U Tricyclic Antidepress Not Detected (NotDetected) Ur Phencyclidine Scrn Not Detected (NotDetected) Ur Amphetamines Screen Not Detected (NotDetected) U Methamphetamines Scrn Not Detected (NotDetected) U Benzodiazepines Scrn Not Detected (NotDetected) Urine Cocaine Screen Not Detected (NotDetected) U Marijuana (THC) Screen Not Detected (NotDetected) Disposition Clinical Impression: Depression, Suicidal ideation, History of Clostridioides difficile colitis Disposition: ADMITTED IP TO THIS HOSP Referrals: Nonstaff,Physician [Primary Care Provider] - 1-2 days Time of Disposition: 17:21
[2020-10-21 14:03] LABS: Amphetamine Screen,Urine Not Detected (NotDetected); Barbiturate Screen,Urine Not Detected (NotDetected); Benzodiazepines Screen,Urine Not Detected (NotDetected); Cocaine Screen,Urine Not Detected (NotDetected); Methadone Screen, Urine Not Detected (NotDetected); Opiate Screen,Urine Not Detected (NotDetected); Oxycodone Screen, Urine Not Detected (NotDetected); Phencyclidine Screen,Urine Not Detected (NotDetected); Tricyclic Antidepressant,Urine Not Detected (NotDetected); Urn Cannabinoid Scrn Not Detected (NotDetected)
[2020-10-21] MEDS ORDERED: MAGNESIUM HYDROXIDE 2,400 MG/10 ML CUP PO PRN (18:24)
[2020-10-21] MEDS ORDERED: ACETAMINOPHEN TAB 325 MG TAB PO PRN (18:24)
[2020-10-21] MEDS ORDERED: MAG HYDROX/AL HYDROX/SIMETH 30 ML CUP PO PRN (18:24)
[2020-10-21] MEDS ORDERED: LORazepam 1 MG TAB PO PRN (18:24)
[2020-10-21] MEDS ORDERED: LORazepam 2 MG/ML INJ IM PRN (18:30)
[2020-10-21] MEDS ORDERED: HALOPERIDOL LACTATE 5 MG/ML 1 ML VIAL IM PRN (18:30)
[2020-10-21] MEDS: metroNIDAZOLE 500 MG TAB PO SCH (20:00)
[2020-10-21] MEDS: SYMBICORT 80-4.5 MCG INHALER (MHU) INHALATION SCH (20:00)
[2020-10-21] MEDS: FLUTICASONE 50MCG/SPRAY NASAL 16GM EA NOSTRIL SCH (21:22)
--- NOTE | 2020-10-22 02:13 | P.MDCNMH ---
History of Present Illness H&P Date: 10/21/20 Chief Complaint: Diarrhea 24-year-old female with history of intermittent asthma, depression, PTSD and anxiety Comes in due to overwhelming emotional stress she has lost her job today he feels overwhelmingly depressed and was having suicidal ideation she had suicidal thoughts in the past. She also is reporting some diarrhea she was diagnosed with C. diff and she's been on Flagyl 3 times a day she's been taking it for about a week now. She did happened after recently had cholecystectomy surgery done less than a month ago. She otherwise denies any fevers or chills nausea vomiting or abdominal pain. She denies any bloody bowel movements Review of Systems Pertinent positives as noted in HPI. All other systems were reviewed and are negative Past Medical History Past Medical History: Asthma, Fibromyalgia, Syncope Additional Past Medical History / Comment(s): ovarian cyst, neurocardogenic syncopy, gallstones History of Any Multi-Drug Resistant Organisms: None Reported Past Surgical History: Cholecystectomy Additional Past Surgical History / Comment(s): wisdom teeth, dental implant, upper GI scope Past Anesthesia/Blood Transfusion Reactions: No Reported Reaction Past Psychological History: Anxiety, Depression Smoking Status: Never smoker Past Alcohol Use History: None Reported Past Drug Use History: None Reported - Past Family History Mother Family Medical History: No Reported History Medications and Allergies Home Medications Medication Instructions Recorded Confirmed Type Escitalopram Oxalate [Lexapro] 20 mg PO AC-SUPPER 01/09/19 10/21/20 History busPIRone HCl [Buspar] 10 mg PO AC-SUPPER 01/09/19 10/21/20 History Fluticasone Nasal [place] [Flonase 1 spray EA NOSTRIL 07/05/20 10/21/20 History Nasal [place]] Fluticasone/Salmeterol [Advair 1 puff INHALATION RT-BID 07/05/20 10/21/20 History 250-50 Diskus] Loratadine [Claritin] 10 mg PO AC-SUPPER 07/05/20 10/21/20 History buPROPion HCL [Wellbutrin XL] 300 mg PO AC-SUPPER 07/05/20 10/21/20 History Inulin/Chromium Picolinate [Fiber 1 tab PO 10/21/20 10/21/20 History Gummies Chew] Orsythia 1 tab PO 10/21/20 10/21/20 History Probiotic Gummy 1 tab PO HS 10/21/20 10/21/20 History metroNIDAZOLE [Flagyl] 500 mg PO Q8H 10/21/20 10/21/20 History Allergies Allergy/AdvReac Type Severity Reaction Status Date / Time latex Allergy Rash/Hives Verified 10/21/20 14:48 sumatriptan [From Imitrex] AdvReac dizzy Verified 10/21/20 14:48 Physical Exam Vitals: Vital Signs Temp Pulse Pulse Resp BP BP Pulse Ox 10/21/20 18:54 98.4 F 91 16 123/73 97 10/21/20 12:55 99.1 F 85 18 117/59 99 Intake and Output 10/21/20 10/21/20 10/22/20 14:59 22:59 06:59 Other: Weight 88.904 kg 88.7 kg Constitutional: No acute distress, conversant, pleasant Eyes: Anicteric sclerae, moist conjunctiva, Pupils equal round reactive to light ENMT: NC/AT Oropharynx clear, no erythema, or exudates Neck: Supple, FROM, no masses, or JVD No carotid bruits No thyromegaly Lungs: Clear to auscultation Clear to percussion Normal respiratory effort, no accessory muscle use Cardiovascular: Heart regular in rate and rhythm, No murmurs, gallops, or rubs No peripheral edema Abdominal: Soft Nontender, no guarding, rebound or rigidity Abdomen moving with respiration Normoactive bowel sounds No hepatomegaly, No splenomegaly No palpable mass No abdominal wall hernia noted Skin: Normal temperature, tone, texture, turgor No induration No subcutaneous nodules No rash, lesions No ulcers Extremities: No digital cyanosis No clubbing Pedal pulses intact and symmetrical Radial pulses intact and symmetrical No calf tenderness Psychiatric: Alert and oriented to person, place and time Appropriate affect fair judgement Neuro Muscles Strength 5/5 in all 4 extremities Sensation to light touch grossly present throughout Cranial nerves II-XII grossly intact No focal sensory deficits Lymphatics: no palpable cervical or supraclavicular , or inguinal lymph nodes Cranial Nerve Examination - Cranial Nerves Cranial Nerve II- Optic: Intact Cranial Nerve III- Oculomotor: Intact Cranial Nerve IV- Trochlear: Intact Cranial Nerve V- Trigeminal: Intact Cranial Nerve - Abducens: Intact Cranial Nerve VII- Facial: Intact Cranial Nerve VIII- Auditory: Intact Cranial Nerve IX- Glossopharyngeal: Intact Cranial Nerve X- Vagus: Intact Cranial Nerve XI- Accessory: Intact Cranial Nerve XII- Hypoglossal: Intact Assessment and Plan Assessment: Diarrhea secondary to C. diff Check C. diff PCR Continue with Flagyl 500 mg 3 times a day to finish 1014 day course Contact precautions secondary to C. diff Check CBC and BMP Depression and suicidal ideation Management per psych Follow-up labs Thank you for allowing us to participate in the care of this patient. Do not hesitate to contact us with questions. Someone can be reached from the [facility] hospitalist group at all hours of the day at [phone].
[2020-10-22] MEDS: metroNIDAZOLE 500 MG TAB PO SCH ×3 (03:09→16:49)
[2020-10-22] MEDS: SYMBICORT 80-4.5 MCG INHALER (MHU) INHALATION SCH ×2 (08:21→21:12)
[2020-10-22 09:37] LABS: Appearance,Urine Clear (Clear); Bilirubin,Urine Negative (Negative); Blood,Urine Negative (Negative); Color,Urine Yellow; Glucose,Urine (UA) Negative (Negative); Ketones,Urine Negative (Negative); Leukocyte Esterase,Urine Negative (Negative); Nitrite,Urine Negative (Negative); Protein,Urine Trace (Negative); Specific Gravity,Urine 1.027 (1.001-1.035); Urobilinogen,Urine <2.0 mg/dL (<2.0)
[2020-10-22 10:54] LABS: Basophils # (A) 0.1 k/uL (0-0.2); Basophils % (A) 1 %; Eosinophils # (A) 0.4 k/uL (0-0.7); Eosinophils % (A) 6 %; HCT 38.2 % (34.0-46.0); HGB 13.2 gm/dL (11.4-16.0); Lymphocytes # (A) 1.6 k/uL (1.0-4.8); Lymphocytes % (A) 29 %; MCH 30.5 pg (25.0-35.0); MCHC 34.4 g/dL (31.0-37.0); MCV 88.5 fL (80.0-100.0); Mean Platelet Volume 6.9; Monocytes # (A) 0.3 k/uL (0-1.0); Monocytes % (A) 6 %; Neutrophils # (A) 3.2 k/uL (1.3-7.7); Neutrophils % (A) 56 %; Platelet Count 393 k/uL (150-450); RBC 4.32 m/uL (3.80-5.40); RDW 12.6 % (11.5-15.5); WBC 5.7 k/uL (3.8-10.6)
[2020-10-22 11:06] LABS: ALT 24 U/L (4-34); AST 30 U/L (14-36); African American GFR (CKD) >90 (>60 ml/min/1.73 sqM); Albumin 4.2 g/dL (3.5-5.0); Alkaline Phosphatase 49 U/L (38-126); Anion Gap 6 mmol/L; Blood Urea Nitrogen 12 mg/dL (7-17); Calcium 10.1 mg/dL (8.4-10.2); Carbon Dioxide 29 mmol/L (22-30); Chloride 104 mmol/L (98-107); Glucose 89 mg/dL (74-99); Non-African American GFR(CKD) >90 (>60 ml/min/1.73 sqM); Potassium 4.5 mmol/L (3.5-5.1); Sodium 139 mmol/L (137-145); Total Bilirubin 0.2 mg/dL (0.2-1.3); Total Protein 6.8 g/dL (6.3-8.2)
--- NOTE | 2020-10-22 12:08 | P.HP ---
Psychiatric H&P - . H&P Date: 10/22/20 History & Physical: Allergies Allergy/AdvReac Type Severity Reaction Status Date / Time latex Allergy Rash/Hives Verified 10/21/20 14:48 sumatriptan From Imitrex AdvReac dizzy Verified 10/21/20 14:48 Vital Signs Temp 97.5 F L 10/22/20 06:47 Pulse 75 10/22/20 06:47 Resp 14 10/22/20 06:47 BP 110/69 10/22/20 06:47 Pulse Ox 97 10/21/20 18:54 Intake & Output 10/21/20 10/22/20 10/22/20 18:59 06:59 18:59 Weight 88.904 kg 88.7 kg Laboratory Last Values WBC 5.7 k/uL (3.8-10.6) 10/22/20 10:21 RBC 4.32 m/uL (3.80-5.40) 10/22/20 10:21 Hgb 13.2 gm/dL (11.4-16.0) 10/22/20 10:21 Hct 38.2 % (34.0-46.0) 10/22/20 10:21 MCV 88.5 fL (80.0-100.0) 10/22/20 10:21 MCH 30.5 pg (25.0-35.0) 10/22/20 10:21 MCHC 34.4 g/dL (31.0-37.0) 10/22/20 10:21 RDW 12.6 % (11.5-15.5) 10/22/20 10:21 Plt Count 393 k/uL (150-450) 10/22/20 10:21 MPV 6.9 10/22/20 10:21 Neutrophils % 56 % 10/22/20 10:21 Lymphocytes % 29 % 10/22/20 10:21 Monocytes % 6 % 10/22/20 10:21 Eosinophils % 6 % 10/22/20 10:21 Basophils % 1 % 10/22/20 10:21 Neutrophils # 3.2 k/uL (1.3-7.7) 10/22/20 10:21 Lymphocytes # 1.6 k/uL (1.0-4.8) 10/22/20 10:21 Monocytes # 0.3 k/uL (0-1.0) 10/22/20 10:21 Eosinophils # 0.4 k/uL (0-0.7) 10/22/20 10:21 Basophils # 0.1 k/uL (0-0.2) 10/22/20 10:21 Sodium 139 mmol/L (137-145) 10/22/20 10:21 Potassium 4.5 mmol/L (3.5-5.1) 10/22/20 10:21 Chloride 104 mmol/L (98-107) 10/22/20 10:21 Carbon Dioxide 29 mmol/L (22-30) 10/22/20 10:21 Anion Gap 6 mmol/L 10/22/20 10:21 BUN 12 mg/dL (7-17) 10/22/20 10:21 Creatinine 0.69 mg/dL (0.52-1.04) 10/22/20 10:21 Est GFR (CKD-EPI)AfAm >90 (>60 ml/min/1.73 sqM) 10/22/20 10:21 Est GFR (CKD-EPI)NonAf >90 (>60 ml/min/1.73 sqM) 10/22/20 10:21 Glucose 89 mg/dL (74-99) 10/22/20 10:21 Calcium 10.1 mg/dL (8.4-10.2) 10/22/20 10:21 Total Bilirubin 0.2 mg/dL (0.2-1.3) 10/22/20 10:21 AST 30 U/L (14-36) 10/22/20 10:21 ALT 24 U/L (4-34) 10/22/20 10:21 Alkaline Phosphatase 49 U/L (38-126) 10/22/20 10:21 Total Protein 6.8 g/dL (6.3-8.2) 10/22/20 10:21 Albumin 4.2 g/dL (3.5-5.0) 10/22/20 10:21 TSH 1.570 mIU/L (0.465-4.680) 10/22/20 10:21 Urine Color Yellow 10/22/20 09:00 Urine Appearance Clear (Clear) 10/22/20 09:00 Urine pH 6.0 (5.0-8.0) 10/22/20 09:00 Ur Specific [place] 1.027 (1.001-1.035) 10/22/20 09:00 Urine Protein Trace (Negative) H 10/22/20 09:00 Urine Glucose (UA) Negative (Negative) 10/22/20 09:00 Urine Ketones Negative (Negative) 10/22/20 09:00 Urine Blood Negative (Negative) 10/22/20 09:00 Urine Nitrite Negative (Negative) 10/22/20 09:00 Urine Bilirubin Negative (Negative) 10/22/20 09:00 Urine Urobilinogen <2.0 mg/dL (<2.0) 10/22/20 09:00 Ur Leukocyte Esterase Negative (Negative) 10/22/20 09:00 Urine HCG, Qual Not Detected (Not Detectd) 10/22/20 09:00 Urine Opiates Screen Not Detected (NotDetected) 10/21/20 13:21 Ur Oxycodone Screen Not Detected (NotDetected) 10/21/20 13:21 Urine Methadone Screen Not Detected (NotDetected) 10/21/20 13:21 Ur Propoxyphene Screen Not Detected (NotDetected) 10/21/20 13:21 Ur Barbiturates Screen Not Detected (NotDetected) 10/21/20 13:21 U Tricyclic Antidepress Not Detected (NotDetected) 10/21/20 13:21 Ur Phencyclidine Scrn Not Detected (NotDetected) 10/21/20 13:21 Ur Amphetamines Screen Not Detected (NotDetected) 10/21/20 13:21 U Methamphetamines Scrn Not Detected (NotDetected) 10/21/20 13:21 U Benzodiazepines Scrn Not Detected (NotDetected) 10/21/20 13:21 Urine Cocaine Screen Not Detected (NotDetected) 10/21/20 13:21 U Marijuana (THC) Screen Not Detected (NotDetected) 10/21/20 13:21 10/22/20 11:59 IDENTIFYING DATA: Patient is a 24-year-old female who currently works as a area secretary at [employer] is single has no kids and lives with her grandfather. HPI: Patient presented to the hospital yesterday after being fired from her job that day. She claimed that she was feeling depressed and suicidal and was trying to fall asleep in her car and hoping to . She apparently needed to be rescued from her vehicle. She has been recently diagnosed with C. diff and being treated on Flagyl 3 times a day. Patient's UDS was negative. Patient was seen in her room today and agreeable history to production underwriter. She was fairly clot calm during the interview and directable. She claims that she has a history of anxiety and depression and has been on her psychiatric medications since 2017 which include Lexapro BuSpar and Wellbutrin. She states that she is not getting very good outpatient follow-up in terms of her psychiatric care. She states that she has been finding it hard to hold onto jobs recently. She claims that she has had a "difficult past 2 years". She states that she is had a lot of medical problems and recently had her gallbladder taken out. She claims that she was given a list of things by her supervisor audit clerks was feeling overwhelmed at work. She claims that she believes that she may be fired from her job for coming in late and other minor violations of the workload. She claims that she felt people were "laughing at me" at her job when she was leaving. She states that she was having suicidal thoughts afterwards and called her therapist who told her to come into the hospital. She states that she has been dealing with depression shame and guilt. She claims that she has poor coping skills. She stated that her appetite is fair and she sleeps "a lot".. Patient denies any current suicidal or homicidal ideations intent or plan. At this time patient denies any auditory or visual hallucinations. Patient denies any flight of ideas racing thoughts and increased in goal directed behavior. Patient admits to using no recreational drugs or cigarettes PAST PSYCHIATRIC HISTORY: Patient states that she has a history of anxiety and depression. She is previously on Lexapro, use bar and Wellbutrin. Patient denies any previous psychiatric hospitalizations. She claims that she has a therapist that she sees at [facility] was named Ced. She states that she is to have a psychiatrist at [facility] that she only saw 2 times in the past and has not changed her medications. She claims that she overdosed once in the past on Advil. PMH: Asthma, fibromyalgia, syncope, MEDARDO ALLERGIES: as per EMR CHEMICAL DEPENDENCY HISTORY: as per HPI FAMILY PSYCHIATRIC/SUBSTANCE USE HISTORY: Claims that her mother has bipolar disorder, father has depression, sister has ADHD and grandmother had schizophrenia. SOCIAL HISTORY: Patient was born and raised in [place] [facility] [facility]. She states that she lived in [place] for several years however now lives in [place] with her grandfather. She claims that she comes from a family and moved around a lot within [place]. She states that she has a bachelors and associates degree in continuous improvement director education and teaching. She states that currently she is working at [employer] as a area secretary however does not know if she still has her job. She states that she does not have any legal issues. She denies having any kids and is single. MENTAL STATUS EXAM: General Appearance: Patient appears to be overweight, tall, stated age is alert, directable, and attempts to cooperate. Patient appears to have fair hygiene and grooming. Behavior: Patient is seated without any agitated behavior. Speech: Patient's speech is fluent and nonpressured. Mood/Affect: Patient reports their mood is depressed and anxious, affect is congruent Suicidality/Homicidality: Patient denies having any homicidal ideation intent or plan. Denies any suicidal ideations intent or plan Perceptions: Patient denies any visual hallucinations and denies any auditory hallucinations Though content/process: There is no evidence of any delusional thought content and thought process is linear and goal-directed. Rambles at times. Memory and concentration: AOX3, grossly intact for the purposes of this session. Can spell "WORLD" backwards Judgment and insight: poor STRENGTHS/WEAKNESSES: strength is that patient is resilient. Weakness is that patient has poor judgment and poor coping skills INTELLECT: average IMPRESSIONS: Major depressive disorder, recurrent, severe without psychotic features Anxiety disorder unspecified PLAN: -Patient is admitted under voluntary status to [facility] for stabilization of psyc hiatric symptoms and safety. Patient has signed adult voluntary form and medication consent and is placed in patient's chart. -Medications : Will start patient on Cymbalta 30 mg daily at bedtime for mood/anxiety. This can be increased over the weekend if needed. BuSpar 10 mg twice a day for anxiety. Discontinued Wellbutrin. -Ativan and Haldol PRN for agitation/aggression -Patient was informed of the risks, benefits and side effects of the medication and patient verbally consented to taking the medications. Patient signed med consent form and was placed in chart. -Internal Medicine consult to perform medical evaluation and physical. Patient is currently on flagyl tid for C. diff infection that she has had over a week and is currently in a contact precaution room. -NRT - not needed as patient does not smoke -SW on board for discharge planning. Encourage patient to participate in groups to work on coping skills. likely discharge early next week.
[2020-10-22 12:22] VITALS: BMI 30.6
[2020-10-22] MEDS: busPIRone HCl 10 MG TAB PO SCH ×2 (14:36→21:41)
[2020-10-22] MEDS: LORATADINE 10 MG TAB PO SCH (16:49)
[2020-10-22] MEDS ORDERED: buPROPion XL 300 MG TAB.ER.24H PO SCH (17:30)
[2020-10-22] MEDS ORDERED: ESCITALOPRAM 20 MG TAB PO SCH (17:30)
[2020-10-22] MEDS ORDERED: busPIRone HCl 10 MG TAB PO SCH (17:30)
[2020-10-22 18:56] LABS: Hemoglobin A1C 4.8 % (4.0-6.0)
[2020-10-22] MEDS: FLUTICASONE 50MCG/SPRAY NASAL 16GM EA NOSTRIL SCH (21:13)
[2020-10-22] MEDS: DULoxetine HCL 30 MG CAPSULE.DR PO SCH (21:14)
[2020-10-22] MEDS ORDERED: LUTERA PO SCH (22:52)
[2020-10-22 22:55] LABS: Chol/HDL Ratio 2.99; Cholesterol 200 mg/dL (0-200); LDL Cholesterol,Calculated 98.8 mg/dL (0.0-131.0)
[2020-10-23] MEDS: ORSYTHIA PO SCH (00:32)
[2020-10-23] MEDS: metroNIDAZOLE 500 MG TAB PO SCH ×3 (03:05→17:55)
[2020-10-23 07:13] VITALS: RESP 16
[2020-10-23] MEDS: busPIRone HCl 10 MG TAB PO SCH ×2 (08:36→20:53)
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
[2020-10-23] MEDS ORDERED: ALBUTEROL HFA INHALER INHALATION PRN (12:07)
[2020-10-23] MEDS ORDERED: ALBUTEROL NEBULIZED 2.5 MG/3 ML INHALATION PRN (12:16)
[2020-10-23] MEDS: LORATADINE 10 MG TAB PO SCH (17:55)
[2020-10-23] MEDS: DULoxetine HCL 30 MG CAPSULE.DR PO SCH (20:53)
[2020-10-23] MEDS: SYMBICORT 160-4.5 MCG INHALER INHALATION SCH (20:54)
[2020-10-24] MEDS: ORSYTHIA PO SCH (00:22)
[2020-10-24] MEDS: metroNIDAZOLE 500 MG TAB PO SCH ×3 (03:10→18:39)
[2020-10-24] MEDS: busPIRone HCl 10 MG TAB PO SCH ×2 (08:39→21:02)
[2020-10-24] MEDS: SYMBICORT 160-4.5 MCG INHALER INHALATION SCH (09:16)
[2020-10-24] MEDS: SYMBICORT 160-4.5 MCG INHALER (MHU) INHALATION SCH (09:35)
--- NOTE | 2020-10-24 11:04 | P.PN ---
Progress Note - Text Progress Note Date: 10/24/20 S&O: Patient was seen for follow-up examination. She continues to feel well and hopes to be discharged tomorrow so that she can go to work on Sunday. She said she does not feel depressed or suicidal any more. She slept well last night and apparently her C. diff infection is getting better. She takes her medications and denies any adverse effects. She attends groups and socializes with peers. This is a right ambulatory female with good hygiene. She is polite friendly cheerful and cooperative. She does not show any psychomotor agitation or retardation. Her speech is spontaneous relevant and goal-directed. Her mood is euthymic to cheerful and affect is appropriate to the thought content. She denies hallucinations delusional thinking suicide and homicide thoughts. She is well oriented with good memory concentration and general fund of knowledge. Plan: Continue current medications, therapy and supervision. Consider discharging her tomorrow.
[2020-10-24] MEDS: LORATADINE 10 MG TAB PO SCH (17:10)
[2020-10-24] MEDS: DULoxetine HCL 30 MG CAPSULE.DR PO SCH (21:02)
[2020-10-25] MEDS: ORSYTHIA PO SCH (00:06)
[2020-10-25] MEDS: SYMBICORT 160-4.5 MCG INHALER (MHU) INHALATION SCH ×2 (03:35→08:38)
[2020-10-25] MEDS: metroNIDAZOLE 500 MG TAB PO SCH ×2 (06:51→12:07)
[2020-10-25 07:13] VITALS: BP 113/55; PULSE 74; TEMP 98.1
[2020-10-25] MEDS: busPIRone HCl 10 MG TAB PO SCH (08:38)
--- NOTE | 2020-10-25 10:25 | P.DS ---
Providers Date of admission: 10/21/20 18:18 Expected date of discharge: 10/25/20 Attending physician: Mamadou Matta MD Consults: 10/21/20 18:24 Consult Physician Routine Consulting Provider: Hector Physician Consult Reason/Comments: medical management Do you want consulting provider notified?: Yes Primary care physician: Physician Nonstaff - Discharge Diagnosis(es) (1) Major depressive disorder without psychotic features Current Visit: Yes Status: Acute Priority: High (2) Anxiety disorder Current Visit: Yes Status: Acute Priority: Medium Hospital Course: Admission HPI: Admission note was completed by telegraphic typewriter mechanic "Patient is a 24-year-old female who currently works as a corporate legal secretary at [employer] is single has no kids and lives with her grandfather. Patient presented to the hospital yesterday after being fired from her job that day. She claimed that she was feeling depressed and suicidal and was trying to fall asleep in her car and hoping to . She appare ntly needed to be rescued from her vehicle. She has been recently diagnosed with C. diff and being treated on Flagyl 3 times a day. Patient's UDS was negative. Patient was seen in her room today and agreeable history to telegraphic typewriter mechanic. She was fairly clot calm during the interview and directable. She claims that she has a history of anxiety and depression and has been on her psychiatric medications since 2017 which include Lexapro BuSpar and Wellbutrin. She states that she is not getting very good outpatient follow-up in terms of her psychiatric care. She states that she has been finding it hard to hold onto jobs recently. She claims that she has had a "difficult past 2 years". She states that she is had a lot of medical problems and recently had her gallbladder taken out. She claims that she was given a list of things by her tool and die supervisor was feeling overwhelmed at work. She claims that she believes that she may be fired from her job for coming in late and other minor violations of the workload. She claims that she felt people were "laughing at me" at her job when she was leaving. She states that she was having suicidal thoughts afterwards and called her therapist who told her to come into the hospital. She states that she has been dealing with depression shame and guilt. She claims that she has poor coping skills. She stated that her appetite is fair and she sleeps "a lot".Patient denies any current suicidal or homicidal ideations intent or plan. At this time patient denies any auditory or visual hallucinations. Patient denies any flight of ideas racing thoughts and increased in goal directed behavior. Patient admits to using no recreational drugs or cigarettes" Hospital course: Upon admission to the unit patient was initially depressed and suicidal. Patient was however directable and agreeable to commence treatment and signed adult voluntary form. Patient got along well with other patients on the unit and followed unit protocol. Patient was compliant with the medications and denied any side effects throughout hospital course. Patient was initially isolated in her room until her C. diff toxin result came back negative. Patient was resumed back on her Flagyl antibiotic treatment for her recent C. diff infection. Patient was started on Cymbalta 30 mg daily for mood/anxiety and also started on BuSpar and increased her dose of 10 mg twice a day for anxiety. Wellbutrin and Lexapro were discontinued due to ineffectiveness. Patient spoke of her stressors and engaged in therapy both group and individual. Patient was also seen by medical team for history and physical exam. Throughout the course of the hospitalization patient gradually improved with regards to mood, anxiety, sleep and became more future oriented with improved insight and judgment. On the day of discharge patient denied any suicidal or homicidal ideations intent or plan denied any auditory or visual hallucinations. Patient endorsed wanting to live for his health and family. The patient denied any access to guns or weapons. Patient denied any paranoia and did not endorse any delusions. Patient does have a significant history of substance abuse however was counseled on abstaining from all substances including alcohol and marijuana. Patient was also counseled on the medications and need for regular compliance and was encouraged to follow-up with their outpatient appointment for mental health and also for primary care. Prior to discharge a family meeting will be arranged by social secretary to answer any questions and ensure safety upon discharge. Mental status exam: General Appearance: Patient appears to be tall, has glasses, stated age is alert, pleasant, and cooperative. Patient is in no acute distress and has improved hygiene and grooming Behavior: Patient is calmly seated without any agitated behavior. Speech: Patient's speech is fluent and nonpressured. Mood/Affect: Patient reports their mood is "good", affect is congruent and euthymic. Suicidality/Homicidality: Patient denies having any suicidal or homicidal ideation intent or plan. Perceptions: Patient denies any auditory or visual hallucinations. Though content/process: There is no evidence of any delusional thought content and thought process is linear and goal-directed. more future oriented Memory and concentration: AOX3, grossly intact for the purposes of this session. Can spell "WORLD" backwards correctly. Judgment and insight: improved with guarded prognosis Impression: Major depressive disorder, recurrent, severe without psychotic features Anxiety disorder unspecified Plan: -Continue with discharge today as patient has improved and stabilized psychiatrically and is not currently an imminent threat to herself and/or others. -Continue medications: Cymbalta 30 mg daily for mood/anxiety, BuSpar 10 mg twice a day for anxiety. The patient will need to take 5 more days of Flagyl to complete her C. diff treatment at home which she already has. -Patient was counseled on the need for medication compliance and appropriate follow-up at mental health and also primary care for medical issues. Patient verbalized understanding and agreed. -Social work to arrange for and conduct family meeting to ensure safety upon discharge and answer any questions/concerns. Social work also to arrange for patients follow up appointments for psychiatric care along with follow up with primary care provider. -Patient counseled on abstaining from recreational drugs and marijuana and alcohol. Was informed/educated on the adverse effects on their physical and mental health. Patient verbally agreed and understood. -Patient was instructed to return to the hospital or seek immediate medical care if their psychiatric or medical symptoms do worsen or reoccur. Allergies Allergy/AdvReac Type Severity Reaction Status Date / Time latex Allergy Rash/Hives Verified 10/21/20 14:48 sumatriptan [From Imitrex] AdvReac dizzy Verified 10/21/20 14:48 Laboratory Results WBC 5.7 k/uL (3.8-10.6) 10/22/20 10:21 RBC 4.32 m/uL (3.80-5.40) 10/22/20 10:21 Hgb 13.2 gm/dL (11.4-16.0) 10/22/20 10:21 Hct 38.2 % (34.0-46.0) 10/22/20 10:21 MCV 88.5 fL (80.0-100.0) 10/22/20 10:21 MCH 30.5 pg (25.0-35.0) 10/22/20 10:21 MCHC 34.4 g/dL (31.0-37.0) 10/22/20 10:21 RDW 12.6 % (11.5-15.5) 10/22/20 10:21 Plt Count 393 k/uL (150-450) 10/22/20 10:21 MPV 6.9 10/22/20 10:21 Neutrophils % 56 % 10/22/20 10:21 Lymphocytes % 29 % 10/22/20 10:21 Monocytes % 6 % 10/22/20 10:21 Eosinophils % 6 % 10/22/20 10:21 Basophils % 1 % 10/22/20 10:21 Neutrophils # 3.2 k/uL (1.3-7.7) 10/22/20 10:21 Lymphocytes # 1.6 k/uL (1.0-4.8) 10/22/20 10:21 Monocytes # 0.3 k/uL (0-1.0) 10/22/20 10:21 Eosinophils # 0.4 k/uL (0-0.7) 10/22/20 10:21 Basophils # 0.1 k/uL (0-0.2) 10/22/20 10:21 Sodium 139 mmol/L (137-145) 10/22/20 10:21 Potassium 4.5 mmol/L (3.5-5.1) 10/22/20 10:21 Chloride 104 mmol/L (98-107) 10/22/20 10:21 Carbon Dioxide 29 mmol/L (22-30) 10/22/20 10:21 Anion Gap 6 mmol/L 10/22/20 10:21 BUN 12 mg/dL (7-17) 10/22/20 10:21 Creatinine 0.69 mg/dL (0.52-1.04) 10/22/20 10:21 Est GFR (CKD-EPI)AfAm >90 (>60 ml/min/1.73 sqM) 10/22/20 10:21 Est GFR (CKD-EPI)NonAf >90 (>60 ml/min/1.73 sqM) 10/22/20 10:21 Glucose 89 mg/dL (74-99) 10/22/20 10:[address] Glu mg/dL 91 10/22/20 10:21 Hemoglobin A1c 4.8 % (4.0-6.0) 10/22/20 10:21 Calcium 10.1 mg/dL (8.4-10.2) 10/22/20 10:21 Total Bilirubin 0.2 mg/dL (0.2-1.3) 10/22/20 10:21 AST 30 U/L (14-36) 10/22/20 10:21 ALT 24 U/L (4-34) 10/22/20 10:21 Alkaline Phosphatase 49 U/L (38-126) 10/22/20 10:21 Total Protein 6.8 g/dL (6.3-8.2) 10/22/20 10: Albumin 4.2 g/dL (3.5-5.0) 10/22/20 10:21 Triglycerides 171.0 mg/dL (0.0-149.0) H 10/22/20 10:21 Cholesterol 200 mg/dL (0-200) 10/22/20 10:21 LDL Cholesterol, Calc 98.8 mg/dL (0.0-131.0) 10/22/20 10:21 VLDL Cholesterol, Calc 34.20 mg/dL (5.00-40.00) 10/22/20 10:21 HDL Cholesterol 67.0 mg/dL (40.0-60.0) H 10/22/20 10:21 Cholesterol/HDL Ratio 2.99 10/22/20 10:21 TSH 1.570 mIU/L (0.465-4.680) 10/22/20 10:21 Urine Color Yellow 10/22/20 09:00 Urine Appearance Clear (Clear) 10/22/20 09:00 Urine pH 6.0 (5.0-8.0) 10/22/20 09:00 Ur Specific [place] 1.027 (1.001-1.035) 10/22/20 09:00 Urine Protein Trace (Negative) H 10/22/20 09:00 Urine Glucose (UA) Negative (Negative) 10/22/20 09:00 Urine Ketones Negative (Negative) 10/22/20 09:00 Urine Blood Negative (Negative) 10/22/20 09:00 Urine Nitrite Negative (Negative) 10/22/20 09:00 Urine Bilirubin Negative (Negative) 10/22/20 09:00 Urine Urobilinogen <2.0 mg/dL (<2.0) 10/22/20 09:00 Ur Leukocyte Esterase Negative (Negative) 10/22/20 09:00 Urine HCG, Qual Not Detected (Not Detectd) 10/22/20 09:00 Urine Opiates Screen Not Detected (NotDetected) 10/21/20 13:21 Ur Oxycodone Screen Not Detected (NotDetected) 10/21/20 13:21 Urine Methadone Screen Not Detected (NotDetected) 10/21/20 13:21 Ur Propoxyphene Screen Not Detected (NotDetected) 10/21/20 13:21 Ur Barbiturates Screen Not Detected (NotDetected) 10/21/20 13:21 U Tricyclic Antidepress Not Detected (NotDetected) 10/21/20 13:21 Ur Phencyclidine Scrn Not Detected (NotDetected) 10/21/20 13:21 Ur Amphetamines Screen Not Detected (NotDetected) 10/21/20 13:21 U Methamphetamines Scrn Not Detected (NotDetected) 10/21/20 13:21 U Benzodiazepines Scrn Not Detected (NotDetected) 10/21/20 13:21 Urine Cocaine Screen Not Detected (NotDetected) 10/21/20 13:21 U Marijuana (THC) Screen Not Detected (NotDetected) 10/21/20 13:21 C. difficile (EIA) Intrp Negative (Negative) 10/22/20 13:18 Vital Signs Temp 98.1 F 10/25/20 06:59 Pulse 74 10/25/20 06:59 Resp 16 10/25/20 06:59 BP 113/55 10/25/20 06:59 Pulse Ox 97 10/21/20 18:54 Patient Condition at Discharge: Stable Plan - Discharge Summary New Discharge Prescriptions: New DULoxetine HCL [Cymbalta] 30 mg PO HS 30 Days capsule.dr Acetaminophen Tab [Tylenol] 650 mg PO Q4HR PRN tab PRN Reason: Pain/Discomfort busPIRone HCl [Buspar] 10 mg PO BID 30 Days tab Albuterol Nebulized [Ventolin Nebulized] 2.5 mg INHALATION RT-QID PRN ml PRN Reason: Shortness Of Breath Or Wheezing Continue Loratadine [Claritin] 10 mg PO AC-SUPPER Fluticasone Nasal [place] [Flonase Nasal [place]] 1 spray EA NOSTRIL HS Fluticasone/Salmeterol [Advair 250-50 Diskus] 1 puff INHALATION RT-BID metroNIDAZOLE [Flagyl] 500 mg PO Q8H Probiotic Gummy 1 tab PO HS Orsythia 1 tab PO HS Inulin/Chromium Picolinate [Fiber Gummies Chew] 1 tab PO HS Discontinued busPIRone HCl [Buspar] 10 mg PO AC-SUPPER Escitalopram Oxalate [Lexapro] 20 mg PO AC-SUPPER buPROPion HCL [Wellbutrin XL] 300 mg PO AC-SUPPER Discharge Medication List Fluticasone Nasal [place] [Flonase Nasal [place]] 1 spray EA NOSTRIL HS 07/05/20 [History] Fluticasone/Salmeterol [Advair 250-50 Diskus] 1 puff INHALATION RT-BID 07/05/20 [History] Loratadine [Claritin] 10 mg PO AC-SUPPER 07/05/20 [History] Inulin/Chromium Picolinate [Fiber Gummies Chew] 1 tab PO HS 10/21/20 [History] Orsythia 1 tab PO HS 10/21/20 [History] Probiotic Gummy 1 tab PO HS 10/21/20 [History] metroNIDAZOLE [Flagyl] 500 mg PO Q8H 10/21/20 [History] Acetaminophen Tab [Tylenol] 650 mg PO Q4HR PRN tab 10/25/20 [Rx] Albuterol Nebulized [Ventolin Nebulized] 2.5 mg INHALATION RT-QID PRN ml 10/25/20 [Rx] DULoxetine HCL [Cymbalta] 30 mg PO HS 30 Days capsule. 10/25/20 [Rx] busPIRone HCl [Buspar] 10 mg PO BID 30 Days tab 10/25/20 [Rx] Follow up Appointment(s)/Referral(s): Nonstaff,Physician [Primary Care Provider] - 1-2 days Activity/Diet/Wound Care/Special Instructions: Activity and diet as tolerated. Avoid the use of street drugs and alcohol. Take all medications as prescribed. When you are in need of refills on your medications please contact your medical provider and/or outpatient psychiatrist to have this done. Please go to scheduled outpatient appointment for aftercare treatment. If symptoms return or become worse, call the crisis line at and/or go to the nearest emergency room for evaluation. Discharge Disposition: HOME SELF-CARE
== END 2020-10-25 12:48 | disposition home or self-care (01) | DRG 885 ==
LOC: EC 12:44 → 3MHU 18:18
PROVIDERS: ADMIT Psychiatry & Neurology Psychiatry; ATTEND Psychiatry & Neurology Psychiatry
DX: F33.2 Major depressive disorder, recurrent severe without psychotic features (principal); R45.851 Suicidal ideations; A04.72 Enterocolitis due to Clostridium difficile, not specified as recurrent; F43.10 Post-traumatic stress disorder, unspecified; J45.909 Unspecified asthma, uncomplicated; M79.7 Fibromyalgia; G47.33 Obstructive sleep apnea (adult) (pediatric); Z81.8 Family history of other mental and behavioral disorders; E66.3 Overweight; Z68.30 Body mass index [BMI] 30.0-30.9, adult; F41.9 Anxiety disorder, unspecified; Z91.410 Personal history of adult physical and sexual abuse; Z91.5 Personal history of self-harm; F43.20 Adjustment disorder, unspecified; Z63.8 Other specified problems related to primary support group; Z56.0 Unemployment, unspecified; Z79.899 Other long term (current) drug therapy
CPT/HCPCS: 80053; 80061; 80306; 81003; 81025; 82075; 83036; 84443; 85025; 87324; 94640; 99285

== ENCOUNTER 2020-11-12 10:34 | Emergency (ER) | payer OTHER ==
[2020-11-12 10:42] VITALS: PULSE 87; RESP 18; TEMP 98.5
[2020-11-12] MEDS: SODIUM CHLORIDE 0.9% 1,000 ML IV STA (11:01)
[2020-11-12 11:28] LABS: Basophils # (A) 0.1 k/uL (0-0.2); Basophils % (A) 1 %; Eosinophils # (A) 0.2 k/uL (0-0.7); Eosinophils % (A) 4 %; HCT 37.2 % (34.0-46.0); HGB 12.6 gm/dL (11.4-16.0); Lymphocytes # (A) 1.7 k/uL (1.0-4.8); Lymphocytes % (A) 30 %; MCH 30.3 pg (25.0-35.0); MCHC 33.7 g/dL (31.0-37.0); MCV 89.9 fL (80.0-100.0); Mean Platelet Volume 7.6; Monocytes # (A) 0.4 k/uL (0-1.0); Monocytes % (A) 6 %; Neutrophils # (A) 3.2 k/uL (1.3-7.7); Neutrophils % (A) 56 %; Platelet Count 367 k/uL (150-450); RBC 4.14 m/uL (3.80-5.40); RDW 12.5 % (11.5-15.5); WBC 5.7 k/uL (3.8-10.6)
--- NOTE | 2020-11-12 11:37 | XR ---
EXAMINATION TYPE: XR chest 2V DATE OF EXAM: 11/12/2020 COMPARISON: 07/07/2020 INDICATION: Syncope TECHNIQUE: Frontal and lateral views of the chest are obtained. FINDINGS: The heart size is normal. The pulmonary vasculature is normal. The lungs are clear. IMPRESSION: 1. No acute pulmonary process.
--- NOTE | 2020-11-12 11:38 | CT ---
EXAMINATION TYPE: CT brain wo con DATE OF EXAM: 11/12/2020 COMPARISON: 10/03/2018 INDICATION: Dizziness with syncopal episode, history of hypotension DLP: 1099.4 mGycm, Automated exposure control for dose reduction was used. CONTRAST: None CT of the brain is performed utilizing 3 mm thick sections through the posterior fossa and 3 mm thick sections through the remaining calvarium. Study is performed within 24 hours of arrival to the hosp ital. No abnormal hyperdensity is present to suggest an acute intracranial hemorrhage. No mass lesion is evident. No acute infarcts are evident. Ventricles and sulci are appropriate for the patient age. Paranasal sinuses and mastoid air cells within the [id number] are clear. IMPRESSIONS: 1. Normal CT Brain
[2020-11-12 11:44] LABS: INR 0.9 (<1.2); Partial Thromboplastin Time 25.3 sec (22.0-30.0); Prothrombin Time 9.9 sec (9.0-12.0)
[2020-11-12 11:46] LABS: ALT 26 U/L (4-34); AST 30 U/L (14-36); African American GFR (CKD) >90 (>60 ml/min/1.73 sqM); Albumin 3.8 g/dL (3.5-5.0); Alkaline Phosphatase 43 U/L (38-126); Anion Gap 7 mmol/L; Blood Urea Nitrogen 14 mg/dL (7-17); Calcium 9.5 mg/dL (8.4-10.2); Carbon Dioxide 23 mmol/L (22-30); Chloride 107 mmol/L (98-107); Glucose 104 mg/dL (74-99); Non-African American GFR(CKD) >90 (>60 ml/min/1.73 sqM); Sodium 137 mmol/L (137-145); Total Bilirubin 0.1 mg/dL (0.2-1.3); Total Protein 6.4 g/dL (6.3-8.2)
[2020-11-12 11:49] LABS: Appearance,Urine Clear (Clear); Bilirubin,Urine Negative (Negative); Blood,Urine Negative (Negative); Color,Urine Yellow; Glucose,Urine (UA) Negative (Negative); Ketones,Urine Negative (Negative); Leukocyte Esterase,Urine Negative (Negative); Nitrite,Urine Negative (Negative); Protein,Urine Negative (Negative); Specific Gravity,Urine 1.029 (1.001-1.035); Urobilinogen,Urine <2.0 mg/dL (<2.0)
--- NOTE | 2020-11-12 12:30 | ED ---
Dizziness HPI - General Chief Complaint: Syncope Stated Complaint: Syncope Time Seen by Provider: 11/12/20 10:44 Source: patient, EMS, RN notes reviewed Mode of arrival: EMS - History of Present Illness Initial Comments: Patient is a 25-year-old female presents to emergency department complaining of dizziness and a syncopal episode at work. She notes she was sitting in a chair when she blacked out. She notes that she did call the grill chef to schedule point at this morning. She notes that she has not followed up with primary or grill chef since her last emergency room visit. Patient was a well-appearing 25-year-old female in no apparent distress or pain. She notes that she's been drinking approximately water per day since her last ER visit. She denied any other issues or complaints. She denied any chest pain shortness of breath nausea vomiting diarrhea constipation fever fatigue chills. - Related Data Home Medications Medication Instructions Recorded Confirmed Fluticasone Nasal [place] [Flonase 1 spray EA NOSTRIL HS 07/05/20 11/12/20 Nasal [place]] Fluticasone/Salmeterol [Advair 1 puff INHALATION RT-BID 07/05/20 11/12/20 250-50 Diskus] Loratadine [Claritin] 10 mg PO AC-SUPPER 07/05/20 11/12/20 Inulin/Chromium Picolinate [Fiber 1 tab PO HS 10/21/20 11/12/20 Gummies Chew] Orsythia 1 tab PO HS 10/21/20 11/12/20 Bifidobacterium Infantis [Align] 10.5 mg PO HS 11/12/20 11/12/20 Midodrine [ProAmatine] 2.5 mg PO AC-TID 11/12/20 11/12/20 Previous Rx's Medication Instructions Recorded DULoxetine HCL [Cymbalta] 30 mg PO HS 30 Days capsule. 10/25/20 busPIRone HCl [Buspar] 10 mg PO BID 30 Days tab 10/25/20 Allergies Allergy/AdvReac Type Severity Reaction Status Date / Time latex Allergy Rash/Hives Verified 11/12/20 11:49 sumatriptan [From Imitrex] AdvReac dizzy Verified 11/12/20 11:49 Review of Systems ROS Statement: Those systems with pertinent positive or pertinent negative responses have been documented in the HPI. ROS Other: All systems not noted in ROS Statement are negative. Past Medical History Past Medical History: Asthma, Fibromyalgia, Syncope Additional Past Medical History / Comment(s): ovarian cyst, neurocardogenic syncopy, gallstones History of Any Multi-Drug Resistant Organisms: None Reported Past Surgical History: Cholecystectomy Additional Past Surgical History / Comment(s): wisdom teeth, dental implant, upper GI scope Past Anesthesia/Blood Transfusion Reactions: No Reported Reaction Past Psychological History: Anxiety, Depression Smoking Status: Never smoker Past Alcohol Use History: None Reported Past Drug Use History: None Reported - Past Family History Mother Family Medical History: No Reported History General Exam General appearance: alert, in no apparent distress Head exam: Present: atraumatic, normocephalic, normal inspection Eye exam: Present: normal appearance, PERRL, EOMI. Absent: scleral icterus, conjunctival injection, periorbital swelling Neck exam: Present: normal inspection Respiratory exam: Present: normal lung sounds bilaterally. Absent: respiratory distress, wheezes, rales, rhonchi, stridor Cardiovascular Exam: Present: regular rate, normal rhythm, normal heart sounds. Absent: systolic murmur, diastolic murmur, rubs, gallop, clicks GI/Abdominal exam: Present: soft, normal bowel sounds. Absent: distended, tenderness, guarding, rebound, rigid Extremities exam: Present: normal inspection, full ROM. Absent: tenderness, pedal edema, joint swelling Neurological exam: Present: alert, oriented X3 Psychiatric exam: Present: normal affect, normal mood Skin exam: Present: warm, dry, intact, normal color. Absent: rash Course Vital Signs 11/12/20 10:36 Temperature 98.5 F Pulse Rate 87 Respiratory 18 Rate Blood Pressure 103/71 O2 Sat by Pulse 96 Oximetry EKG Findings - EKG Comments: EKG Findings:: Ventricular rate 78 bpm, WV interval 166 ms, QRS duration 94 ms, QTC 421 ms, PRT axes 58/80/48. Normal sinus rhythm. Normal ECG. Medical Decision Making - Medical Decision Making 25-year-old female complaining of dizziness with a syncopal episode at work today. Labs, chest x-ray, 1 L normal saline, CT of the brain, EKG, conveyor monitor ordered. Labs unremarkable. EKG within normal limits. Imaging negative for any acute process. Case discussed with Dr. Thacker, patient can discharge home with follow-up to grill chef as planned. - Lab Data Result diagrams: 11/12/20 11:02 11/12/20 11:02 Lab Results 11/12/20 11/12/20 11/12/20 Range/Units 11:02 11:02 11:02 WBC 5.7 (3.8-10.6) k/uL RBC 4.14 (3.80-5.40) m/uL Hgb 12.6 (11.4-16.0) gm/dL Hct 37.2 (34.0-46.0) % MCV 89.9 (80.0-100.0) fL MCH 30.3 (25.0-35.0) pg MCHC 33.7 (31.0-37.0) g/dL RDW 12.5 (11.5-15.5) % Plt Count 367 (150-450) k/uL MPV 7.6 Neutrophils % 56 % Lymphocytes % 30 % Monocytes % 6 % Eosinophils % 4 % Basophils % 1 % Neutrophils # 3.2 (1.3-7.7) k/uL Lymphocytes # 1.7 (1.0-4.8) k/uL Monocytes # 0.4 (0-1.0) k/uL Eosinophils # 0.2 (0-0.7) k/uL Basophils # 0.1 (0-0.2) k/uL PT 9.9 (9.0-12.0) sec INR 0.9 (<1.2) APTT 25.3 (22.0-30.0) sec Sodium 137 (137-145) mmol/L Potassium 4.0 (3.5-5.1) mmol/L Chloride 107 (98-107) mmol/L Carbon Dioxide 23 (22-30) mmol/L Anion Gap 7 mmol/L BUN 14 (7-17) mg/dL Creatinine 0.47 L (0.52-1.04) mg/dL Est GFR (CKD-EPI)AfAm >90 (>60 ml/min/1.73 sqM) Est GFR (CKD-EPI)NonAf >90 (>60 ml/min/1.73 sqM) Glucose 104 H (74-99) mg/dL Calcium 9.5 (8.4-10.2) mg/dL Magnesium 2.0 (1.6-2.3) mg/dL Total Bilirubin 0.1 L (0.2-1.3) mg/dL AST 30 (14-36) U/L ALT 26 (4-34) U/L Alkaline Phosphatase 43 (38-126) U/L Troponin I (0.000-0.034) ng/mL Total Protein 6.4 (6.3-8.2) g/dL Albumin 3.8 (3.5-5.0) g/dL Urine Color Urine Appearance (Clear) Urine pH (5.0-8.0) Ur Specific [place] (1.001-1.035) Urine Protein (Negative) Urine Glucose (UA) (Negative) Urine Ketones (Negative) Urine Blood (Negative) Urine Nitrite (Negative) Urine Bilirubin (Negative) Urine Urobilinogen (<2.0) mg/dL Ur Leukocyte Esterase (Negative) 11/12/20 11/12/20 Range/Units 11:02 11:24 WBC (3.8-10.6) k/uL RBC (3.80-5.40) m/uL Hgb (11.4-16.0) gm/dL Hct (34.0-46.0) % MCV (80.0-100.0) fL MCH (25.0-35.0) pg MCHC (31.0-37.0) g/dL RDW (11.5-15.5) % Plt Count (150-450) k/uL MPV Neutrophils % % Lymphocytes % % Monocytes % % Eosinophils % % Basophils % % Neutrophils # (1.3-7.7) k/uL Lymphocytes # (1.0-4.8) k/uL Monocytes # (0-1.0) k/uL Eosinophils # (0-0.7) k/uL Basophils # (0-0.2) k/uL PT (9.0-12.0) sec INR (<1.2) APTT (22.0-30.0) sec Sodium (137-145) mmol/L Potassium (3.5-5.1) mmol/L Chloride (98-107) mmol/L Carbon Dioxide (22-30) mmol/L Anion Gap mmol/L BUN (7-17) mg/dL Creatinine (0.52-1.04) mg/dL Est GFR (CKD-EPI)AfAm (>60 ml/min/1.73 sqM) Est GFR (CKD-EPI)NonAf (>60 ml/min/1.73 sqM) Glucose (74-99) mg/dL Calcium (8.4-10.2) mg/dL Magnesium (1.6-2.3) mg/dL Total Bilirubin (0.2-1.3) mg/dL AST (14-36) U/L ALT (4-34) U/L Alkaline Phosphatase (38-126) U/L Troponin I <0.012 (0.000-0.034) ng/mL Total Protein (6.3-8.2) g/dL Albumin (3.5-5.0) g/dL Urine Color Yellow Urine Appearance Clear (Clear) Urine pH 6.0 (5.0-8.0) Ur Specific [place] 1.029 (1.001-1.035) Urine Protein Negative (Negative) Urine Glucose (UA) Negative (Negative) Urine Ketones Negative (Negative) Urine Blood Negative (Negative) Urine Nitrite Negative (Negative) Urine Bilirubin Negative (Negative) Urine Urobilinogen <2.0 (<2.0) mg/dL Ur Leukocyte Esterase Negative (Negative) - EKG Data -: EKG Interpreted by Ri EKG shows normal: sinus rhythm Rate: normal EKG Comments: Ventricular rate 78 bpm, WV interval 166 ms, QRS duration 94 ms, QTC 421 ms, PRT axes 58/80/48. Normal sinus rhythm. Normal ECG.Ventricular rate 78 bpm, WV interval 166 ms, QRS duration 94 ms, QTC 421 ms, PRT axes 58/80/48. Normal sinus rhythm. Normal ECG. - Radiology Data Radiology results: report reviewed, image reviewed CT of the brain: Normal CT of brain. Chest x-ray: No acute pulmonary process. Disposition Clinical Impression: Syncope Disposition: HOME SELF-CARE Condition: Stable Instructions (If sedation given, give patient instructions): Syncope (ED) Additional Instructions: Please return to the Emergency Department if symptoms worsen or any other concerns. Continue to drink plenty of fluids. Follow-up primary care next 1-2 days. Follow-up with grill chef as planned. Is patient prescribed a controlled substance at d/c from ED?: No Referrals: Nonstaff,Physician [Primary Care Provider] - 1-2 days Time of Disposition: 12:29
[2020-11-12 13:01] VITALS: BP 121/79
== END 2020-11-12 13:17 | disposition home or self-care (01) ==
LOC: EC 10:34
DX: R55 Syncope and collapse (principal); R42 Dizziness and giddiness; J45.909 Unspecified asthma, uncomplicated; M79.7 Fibromyalgia; F32.9 Major depressive disorder, single episode, unspecified; F41.9 Anxiety disorder, unspecified; Z79.51 Long term (current) use of inhaled steroids; Z91.040 Latex allergy status; Z90.49 Acquired absence of other specified parts of digestive tract
CPT/HCPCS: 36415; 70450; 71046; 80053; 81003; 83735; 84484; 85025; 85610; 85730; 93005; 96360; 96361; 99285

== ENCOUNTER 2021-02-17 21:18 | Emergency (ER) | payer OTHER ==
[2021-02-17 21:55] VITALS: TEMP 98.2
[2021-02-18] MEDS ORDERED: DEXAMETHASONE SOD PHOSPHATE 10 MG/ML 1 ML VIAL IVP STA (00:16)
--- NOTE | 2021-02-18 00:20 | ED ---
General Adult HPI - General Chief complaint: Shortness of Breath Stated complaint: Numbness in both hands and arms Time Seen by Provider: 02/18/21 00:05 Source: patient, RN notes reviewed, old records reviewed Mode of arrival: wheelchair Limitations: no limitations - History of Present Illness Initial comments: This is a well-appearing 25-year-old, alert and oriented 4, presents to the emergency room with bilateral hand weakness and tingling that radiates up to her upper arms bilaterally. She states it started at 3:00 and she is having difficulty holding a cup. She denies any pain states it is just tingling. She denies any fevers or vomiting or diarrhea. She does have a history of fibromyalgia, neurogenic syncope, asthma and anxiety. She states that she does have history of arthritis bilateral knees. There is strong family history of rh eumatoid arthritis. -: hour(s) (9) Location: left, right, upper extremity (hands) Radiation: proximal Severity scale (1-10): 0 Quality: other (tingling) Consistency: constant Improves with: none Worsens with: none Associated Symptoms: denies other symptoms Treatments Prior to Arrival: NSAID, other (tylenol) - Related Data Home Medications Medication Instructions Recorded Confirmed Fluticasone Nasal [place] [Flonase 1 spray EA NOSTRIL HS 07/05/20 11/12/20 Nasal [place]] Fluticasone/Salmeterol [Advair 1 puff INHALATION RT-BID 07/05/20 11/12/20 250-50 Diskus] Loratadine [Claritin] 10 mg PO AC-SUPPER 07/05/20 11/12/20 Inulin/Chromium Picolinate [Fiber 1 tab PO HS 10/21/20 11/12/20 Gummies Chew] Orsythia 1 tab PO HS 10/21/20 11/12/20 Bifidobacterium Infantis [Align] 10.5 mg PO HS 11/12/20 11/12/20 Midodrine [ProAmatine] 2.5 mg PO AC-TID 11/12/20 11/12/20 Previous Rx's Medication Instructions Recorded DULoxetine HCL [Cymbalta] 30 mg PO HS 30 Days capsule. 10/25/20 busPIRone HCl [Buspar] 10 mg PO BID 30 Days tab 10/25/20 Ibuprofen [Motrin] 600 mg PO Q8HR PRN #20 tab 02/18/21 Allergies Allergy/AdvReac Type Severity Reaction Status Date / Time latex Allergy Rash/Hives Verified 02/17/21 21:52 sumatriptan [From Imitrex] AdvReac dizzy Verified 02/17/21 21:52 Review of Systems ROS Statement: Those systems with pertinent positive or pertinent negative responses have been documented in the HPI. ROS Other: All systems not noted in ROS Statement are negative. Past Medical History Past Medical History: Asthma, Fibromyalgia, Syncope Additional Past Medical History / Comment(s): ovarian cyst, neurocardogenic syncopy, gallstones History of Any Multi-Drug Resistant Organisms: None Reported Past Surgical History: Cholecystectomy Additional Past Surgical History / Comment(s): wisdom teeth, dental implant, upper GI scope Past Anesthesia/Blood Transfusion Reactions: No Reported Reaction Past Psychological History: Anxiety, Depression Smoking Status: Never smoker Past Alcohol Use History: None Reported Past Drug Use History: None Reported - Past Family History Mother Family Medical History: No Reported History General Exam Limitations: no limitations General appearance: alert, in no apparent distress Head exam: Present: atraumatic, normocephalic, normal inspection Eye exam: Present: normal appearance, EOMI Neck exam: Present: normal inspection, full ROM. Absent: tenderness, meningismus, lymphadenopathy, thyromegaly Respiratory exam: Present: normal lung sounds bilaterally. Absent: respiratory distress, wheezes, rales, rhonchi, stridor Cardiovascular Exam: Present: regular rate, normal rhythm, normal heart sounds. Absent: systolic murmur, diastolic murmur, rubs, gallop, clicks Extremities exam: Present: normal inspection, full ROM, normal capillary refill. Absent: tenderness, pedal edema, joint swelling, calf tenderness Left Forearm Wrist exam: Present: normal inspection, full ROM. Absent: tenderness Hand Wrist exam: Present: normal inspection, full ROM. Absent: tenderness Neurosensory exam: Present: median nerve intact. Absent: radial nerve intact, ulnar nerve intact Vascular: Present: normal capillary refill. Absent: vascular compromise Right Forearm Wrist exam: Present: normal inspection, full ROM. Absent: tenderness, swelling Hand Wrist exam: Present: normal inspection, full ROM. Absent: tenderness Neurosensory exam: Present: ulnar nerve intact, median nerve intact. Absent: radial nerve intact Vascular: Present: normal capillary refill. Absent: vascular compromise Back exam: Present: normal inspection, full ROM. Absent: tenderness, CVA tenderness (R), CVA tenderness (L), rash noted Expanded Back exam: Absent: saddle anesthesia Back exam: Negative Straight Leg Raising: Left, Right Neurological exam: Present: alert, oriented X3 Expanded Patient oriented to: Present: person, place. Absent: time Speech: Present: fluid speech Cranial nerves: EOM's Intact: Normal Motor strength exam: RUE: 5, LUE: 5, RLE: 5, LLE: 5 Eye Response: (4) open spontaneously Motor Response: (6) obeys commands Verbal Response: (5) oriented [place] Total: 15 Psychiatric exam: Present: normal affect, normal mood Skin exam: Present: warm, dry, intact, normal color. Absent: rash Course Vital Signs 02/17/21 02/17/21 02/17/21 21:48 21:52 22:54 Temperature 98 F 98.2 F Pulse Rate 99 96 85 Respiratory 18 18 16 Rate Blood Pressure 118/83 160/91 123/83 O2 Sat by Pulse 97 98 98 Oximetry 02/18/21 02/18/21 02/18/21 00:00 00:42 01:50 Temperature Pulse Rate 83 72 Respiratory 16 18 16 Rate Blood Pressure 136/78 O2 Sat by Pulse 97 97 Oximetry Medical Decision Making - Medical Decision Making Patient presents with bilateral hand tingling that started at 3:00 this afternoon. She denies any pain. She states it was difficult for her to pickle pumper a cup with her left hand. She states in the past she has had carpal tunnel in her left hand and she was directed to wear a brace. She denies any headaches, injuries, fevers or nausea and vomiting. She denies any chest pain or shortness of breath. There is no swelling to the joints of her hands. Negative phalen and armida tests. Patient reports feeling better after the steroid. She has no focal neurological symptoms. Her vital signs are stable. Patient directed to take Motrin and follow up with her primary care doctor next week. Case discussed with Dr. Huntley. patient is agreeable to this plan of care - Lab Data Result diagrams: 02/18/21 00:19 Lab Results 02/18/21 02/18/21 Range/Units 00:19 00:19 WBC 8.9 (3.8-10.6) k/uL RBC 4.34 (3.80-5.40) m/uL Hgb 12.8 (11.4-16.0) gm/dL Hct 39.0 (34.0-46.0) % MCV 89.8 (80.0-100.0) fL MCH 29.5 (25.0-35.0) pg MCHC 32.8 (31.0-37.0) g/dL RDW 12.1 (11.5-15.5) % Plt Count 372 (150-450) k/uL MPV 7.7 Neutrophils % 54 % Lymphocytes % 35 % Monocytes % 6 % Eosinophils % 3 % Basophils % 1 % Neutrophils # 4.8 (1.3-7.7) k/uL Lymphocytes # 3.1 (1.0-4.8) k/uL Monocytes # 0.5 (0-1.0) k/uL Eosinophils # 0.2 (0-0.7) k/uL Basophils # 0.1 (0-0.2) k/uL ESR Cancelled C-Reactive Protein 1.2 H (<1.0) mg/dL Disposition Clinical Impression: Neuropathy Disposition: HOME SELF-CARE Condition: Good Instructions (If sedation given, give patient instructions): Peripheral Neuropathy (ED) Additional Instructions: Take Motrin 600 mg every 8 hours for the next 3 days. Follow-up with your primary care doctor next week. Return to emergency room with any new or worsening symptoms. Prescriptions: Ibuprofen [Motrin] 600 mg PO Q8HR PRN #20 tab PRN Reason: Pain Is patient prescribed a controlled substance at d/c from ED?: No Referrals: Nonstaff,Physician [Primary Care Provider] - 1-2 days Time of Disposition: 01:40
[2021-02-18 00:47] VITALS: BP 136/78
[2021-02-18 01:02] LABS: Basophils # (A) 0.1 k/uL (0-0.2); Basophils % (A) 1 %; Eosinophils # (A) 0.2 k/uL (0-0.7); Eosinophils % (A) 3 %; HGB 12.8 gm/dL (11.4-16.0); Lymphocytes # (A) 3.1 k/uL (1.0-4.8); Lymphocytes % (A) 35 %; MCH 29.5 pg (25.0-35.0); MCHC 32.8 g/dL (31.0-37.0); MCV 89.8 fL (80.0-100.0); Mean Platelet Volume 7.7; Monocytes # (A) 0.5 k/uL (0-1.0); Monocytes % (A) 6 %; Neutrophils # (A) 4.8 k/uL (1.3-7.7); Neutrophils % (A) 54 %; Platelet Count 372 k/uL (150-450); RBC 4.34 m/uL (3.80-5.40); RDW 12.1 % (11.5-15.5); WBC 8.9 k/uL (3.8-10.6)
[2021-02-18 01:51] VITALS: PULSE 72; RESP 16
== END 2021-02-18 01:51 | disposition home or self-care (01) ==
LOC: EC 21:18
DX: G62.9 Polyneuropathy, unspecified (principal); J45.909 Unspecified asthma, uncomplicated; M79.7 Fibromyalgia; F32.9 Major depressive disorder, single episode, unspecified; F41.9 Anxiety disorder, unspecified; Z79.1 Long term (current) use of non-steroidal anti-inflammatories (NSAID); Z79.51 Long term (current) use of inhaled steroids; Z79.899 Other long term (current) drug therapy
CPT/HCPCS: 36415; 85652; 85025; 86140; 99285; 96374; J1100

== ENCOUNTER 2021-03-21 08:17 | Emergency (ER) | payer OTHER ==
[2021-03-21] MEDS ORDERED: SODIUM CHLORIDE 0.9% 500 ML 500 ML IV STA (08:56)
[2021-03-21] MEDS ORDERED: HYDROmorphone 0.5 MG/0.5 ML SYRINGE IVP STA (08:56)
[2021-03-21] MEDS ORDERED: ONDANSETRON 4 MG/2 ML VIAL IVP STA (08:56)
[2021-03-21] MEDS ORDERED: KETOROLAC 15 MG/ML 1 ML VIAL IVP STA (08:56)
[2021-03-21] MEDS ORDERED: SODIUM CHLORIDE 0.9% 1,000 ML IV STA (08:56)
--- NOTE | 2021-03-21 08:59 | ED ---
Abdominal Pain HPI - General Chief Complaint: Abdominal Pain Stated Complaint: right side abd pain Time Seen by Provider: 03/21/21 08:22 Source: patient, RN notes reviewed Mode of arrival: ambulatory Limitations: no limitations - History of Present Illness Initial Comments: 25-year-old female presents emergency Department with chief complaint of abdominal pain. Patient states started on the right side of yesterday worse this morning. Patient states sharp pain. Patient had a prior cholecystectomy patient denies any fevers or chills. Patient states that it is worse with movement or she presses over the area. Patient denies any dysuria hematuria no chance . She states she's had some diarrhea. - Related Data Home Medications Medication Instructions Recorded Confirmed Fluticasone Nasal [place] [Flonase 1 spray EA NOSTRIL HS 07/05/20 11/12/20 Nasal [place]] Fluticasone/Salmeterol [Advair 1 puff INHALATION RT-BID 07/05/20 11/12/20 250-50 Diskus] Loratadine [Claritin] 10 mg PO AC-SUPPER 07/05/20 11/12/20 Inulin/Chromium Picolinate [Fiber 1 tab PO HS 10/21/20 11/12/20 Gummies Chew] Orsythia 1 tab PO HS 10/21/20 11/12/20 Bifidobacterium Infantis [Align] 10.5 mg PO HS 11/12/20 11/12/20 Midodrine [ProAmatine] 2.5 mg PO AC-TID 11/12/20 11/12/20 Previous Rx's Medication Instructions Recorded DULoxetine HCL [Cymbalta] 30 mg PO HS 30 Days capsule. 10/25/20 busPIRone HCl [Buspar] 10 mg PO BID 30 Days tab 10/25/20 Ibuprofen [Motrin] 600 mg PO Q8HR PRN #20 tab 02/18/21 Allergies Allergy/AdvReac Type Severity Reaction Status Date / Time latex Allergy Rash/Hives Verified 03/21/21 10:12 sumatriptan [From Imitrex] AdvReac dizzy Verified 03/21/21 10:12 Review of Systems ROS Statement: Those systems with pertinent positive or pertinent negative responses have been documented in the HPI. ROS Other: All systems not noted in ROS Statement are negative. Past Medical History Past Medical History: Asthma, Fibromyalgia, Syncope Additional Past Medical History / Comment(s): ovarian cyst, neurocardogenic syncopy, gallstones History of Any Multi-Drug Resistant Organisms: C-DIFF Date of last positivie culture/infection: 09/2020 MDRO Source:: stool Past Surgical History: Cholecystectomy Additional Past Surgical History / Comment(s): wisdom teeth, dental implant, upper GI scope Past Anesthesia/Blood Transfusion Reactions: No Reported Reaction Past Psychological History: Anxiety, Depression Smoking Status: Never smoker Past Alcohol Use History: None Reported Past Drug Use History: None Reported - Past Family History Mother Family Medical History: No Reported History General Exam Limitations: no limitations General appearance: alert, in no apparent distress Head exam: Present: atraumatic, normocephalic, normal inspection Eye exam: Present: normal appearance, PERRL, EOMI. Absent: scleral icterus, conjunctival injection, periorbital swelling ENT exam: Present: normal exam, mucous membranes moist Neck exam: Present: normal inspection. Absent: tenderness, meningismus, lymphadenopathy Respiratory exam: Present: normal lung sounds bilaterally. Absent: respiratory distress, wheezes, rales, rhonchi, stridor Cardiovascular Exam: Present: regular rate, normal rhythm, normal heart sounds. Absent: systolic murmur, diastolic murmur, rubs, gallop, clicks GI/Abdominal exam: Present: soft, tenderness (Right-sided), normal bowel sounds. Absent: distended, guarding, rebound, rigid Back exam: Absent: CVA tenderness (R), CVA tenderness (L) Neurological exam: Present: alert Skin exam: Present: warm, dry, intact, normal color. Absent: rash Course Vital Signs 03/21/21 08:18 Temperature 97.9 F Pulse Rate 89 Respiratory 18 Rate Blood Pressure 113/79 O2 Sat by Pulse 97 Oximetry Medical Decision Making - Medical Decision Making Referral presented for abdominal pain. Patient CT shows evidence of mesenteric adenitis for there is no other clinical worrisome signs and CT. Labs unremarkable be discharged in stable condition. - Lab Data Result diagrams: 03/21/21 08:57 03/21/21 08:57 Lab Results 03/21/21 03/21/21 03/21/21 Range/Units 08:57 08:57 08:57 WBC 5.4 (3.8-10.6) k/uL RBC 4.40 (3.80-5.40) m/uL Hgb 13.7 (11.4-16.0) gm/dL Hct 40.0 (34.0-46.0) % MCV 90.8 (80.0-100.0) fL MCH 31.1 (25.0-35.0) pg MCHC 34.2 (31.0-37.0) g/dL RDW 12.7 (11.5-15.5) % Plt Count 401 (150-450) k/uL MPV 7.4 Neutrophils % 55 % Lymphocytes % 34 % Monocytes % 5 % Eosinophils % 2 % Basophils % 1 % Neutrophils # 3.0 (1.3-7.7) k/uL Lymphocytes # 1.8 (1.0-4.8) k/uL Monocytes # 0.3 (0-1.0) k/uL Eosinophils # 0.1 (0-0.7) k/uL Basophils # 0.1 (0-0.2) k/uL Sodium (137-145) mmol/L Potassium (3.5-5.1) mmol/L Chloride (98-107) mmol/L Carbon Dioxide (22-30) mmol/L Anion Gap mmol/L BUN (7-17) mg/dL Creatinine (0.52-1.04) mg/dL Est GFR (CKD-EPI)AfAm (>60 ml/min/1.73 sqM) Est GFR (CKD-EPI)NonAf (>60 ml/min/1.73 sqM) Glucose (74-99) mg/dL Plasma Lactic Acid Ag (0.7-2.0) mmol/L Calcium (8.4-10.2) mg/dL Total Bilirubin (0.2-1.3) mg/dL AST (14-36) U/L ALT (4-34) U/L Alkaline Phosphatase (38-126) U/L Total Protein (6.3-8.2) g/dL Albumin (3.5-5.0) g/dL Amylase (30-110) U/L Lipase (23-300) U/L Urine Color Yellow Urine Appearance Clear (Clear) Urine pH 5.0 (5.0-8.0) Ur Specific [place] 1.025 (1.001-1.035) Urine Protein Negative (Negative) Urine Glucose (UA) Negative (Negative) Urine Ketones Negative (Negative) Urine Blood Trace H (Negative) Urine Nitrite Negative (Negative) Urine Bilirubin Negative (Negative) Urine Urobilinogen <2.0 (<2.0) mg/dL Ur Leukocyte Esterase Negative (Negative) Urine RBC 1 (0-5) /hpf Urine WBC 1 (0-5) /hpf Ur Squamous Epith Cells 3 (0-4) /hpf Urine Mucus Few H (None) /hpf Urine HCG, Qual Not Detected (Not Detectd) 03/21/21 03/21/21 Range/Units 08:57 08:57 WBC (3.8-10.6) k/uL RBC (3.80-5.40) m/uL Hgb (11.4-16.0) gm/dL Hct (34.0-46.0) % MCV (80.0-100.0) fL MCH (25.0-35.0) pg MCHC (31.0-37.0) g/dL RDW (11.5-15.5) % Plt Count (150-450) k/uL MPV Neutrophils % % Lymphocytes % % Monocytes % % Eosinophils % % Basophils % % Neutrophils # (1.3-7.7) k/uL Lymphocytes # (1.0-4.8) k/uL Monocytes # (0-1.0) k/uL Eosinophils # (0-0.7) k/uL Basophils # (0-0.2) k/uL Sodium 138 (137-145) mmol/L Potassium 4.2 (3.5-5.1) mmol/L Chloride 107 (98-107) mmol/L Carbon Dioxide 22 (22-30) mmol/L Anion Gap 9 mmol/L BUN 16 (7-17) mg/dL Creatinine 0.81 (0.52-1.04) mg/dL Est GFR (CKD-EPI)AfAm >90 (>60 ml/min/1.73 sqM) Est GFR (CKD-EPI)NonAf >90 (>60 ml/min/1.73 sqM) Glucose 89 (74-99) mg/dL Plasma Lactic Acid Ag 1.4 (0.7-2.0) mmol/L Calcium 9.7 (8.4-10.2) mg/dL Total Bilirubin 0.3 (0.2-1.3) mg/dL AST 38 H (14-36) U/L ALT 54 H (4-34) U/L Alkaline Phosphatase 61 (38-126) U/L Total Protein 7.1 (6.3-8.2) g/dL Albumin 4.0 (3.5-5.0) g/dL Amylase 71 (30-110) U/L Lipase 83 (23-300) U/L Urine Color Urine Appearance (Clear) Urine pH (5.0-8.0) Ur Specific [place] (1.001-1.035) Urine Protein (Negative) Urine Glucose (UA) (Negative) Urine Ketones (Negative) Urine Blood (Negative) Urine Nitrite (Negative) Urine Bilirubin (Negative) Urine Urobilinogen (<2.0) mg/dL Ur Leukocyte Esterase (Negative) Urine RBC (0-5) /hpf Urine WBC (0-5) /hpf Ur Squamous Epith Cells (0-4) /hpf Urine Mucus (None) /hpf Urine HCG, Qual (Not Detectd) Disposition Clinical Impression: Mesenteric adenitis, Abdominal pain Disposition: HOME SELF-CARE Condition: Stable Instructions (If sedation given, give patient instructions): Abdominal Pain (ED) Additional Instructions: Please return to the Emergency Department if symptoms worsen or any other concerns. Is patient prescribed a controlled substance at d/c from ED?: No Referrals: Nonstaff,Physician [Primary Care Provider] - 1-2 days Time of Disposition: 10:18
[2021-03-21 09:14] LABS: Basophils # (A) 0.1 k/uL (0-0.2); Basophils % (A) 1 %; Eosinophils # (A) 0.1 k/uL (0-0.7); Eosinophils % (A) 2 %; HGB 13.7 gm/dL (11.4-16.0); Lymphocytes # (A) 1.8 k/uL (1.0-4.8); Lymphocytes % (A) 34 %; MCH 31.1 pg (25.0-35.0); MCHC 34.2 g/dL (31.0-37.0); MCV 90.8 fL (80.0-100.0); Mean Platelet Volume 7.4; Monocytes # (A) 0.3 k/uL (0-1.0); Monocytes % (A) 5 %; Neutrophils % (A) 55 %; Platelet Count 401 k/uL (150-450); RDW 12.7 % (11.5-15.5); WBC 5.4 k/uL (3.8-10.6)
[2021-03-21 09:24] LABS: Appearance,Urine Clear (Clear); Bilirubin,Urine Negative (Negative); Blood,Urine Trace (Negative); Color,Urine Yellow; Glucose,Urine (UA) Negative (Negative); Ketones,Urine Negative (Negative); Leukocyte Esterase,Urine Negative (Negative); Mucus,Urine Few /hpf; Nitrite,Urine Negative (Negative); Protein,Urine Negative (Negative); RBC,Urine 1 /hpf (0-5); Specific Gravity,Urine 1.025 (1.001-1.035); Squamous Epithelial Cell,Urine 3 /hpf (0-4); Urobilinogen,Urine <2.0 mg/dL (<2.0); WBC,Urine 1 /hpf (0-5)
[2021-03-21 09:25] LABS: ALT 54 U/L (4-34); AST 38 U/L (14-36); African American GFR (CKD) >90 (>60 ml/min/1.73 sqM); Alkaline Phosphatase 61 U/L (38-126); Amylase 71 U/L (30-110); Anion Gap 9 mmol/L; Blood Urea Nitrogen 16 mg/dL (7-17); Calcium 9.7 mg/dL (8.4-10.2); Carbon Dioxide 22 mmol/L (22-30); Chloride 107 mmol/L (98-107); Glucose 89 mg/dL (74-99); Lipase 83 U/L (23-300); Non-African American GFR(CKD) >90 (>60 ml/min/1.73 sqM); Potassium 4.2 mmol/L (3.5-5.1); Sodium 138 mmol/L (137-145); Total Bilirubin 0.3 mg/dL (0.2-1.3); Total Protein 7.1 g/dL (6.3-8.2)
--- NOTE | 2021-03-21 10:08 | CT ---
EXAMINATION TYPE: CT abdomen pelvis wo con DATE OF EXAM: 03/21/2021 COMPARISON: 07/05/2020 HISTORY: 25-year-old female Right sided abdominal pain. CT DLP: 794.1 mGycm. Automated exposure control for dose reduction was used. TECHNIQUE: Contiguous axial scanning of the abdomen and pelvis without IV contrast. Coronal and sagit brenna reconstructions performed. FINDINGS: Heart normal size without pericardial effusion. Lung bases are clear without pleural effusion. Liver mildly enlarged at 18.4 cm, slightly smaller compared to 20.7 cm, previously. Cholecystectomy c lips. Noncontrast appearance of the glands, kidneys, spleen, and pancreas within normal limits. No dilated small bowel, free fluid, or free air. Cluster of nonenlarged and borderline sized right lower quadrant mesenteric lymph nodes are demonstra medhat. Segments of the normal appendix are visualized. No significant stool burden. No pericolonic infl ammatory change. Bladder incompletely distended. Uterus anteverted. Both ovaries are visualized. No abnormal fluid col lection in the pelvis or pelvic lymphadenopathy. Bones: Stellate focus of sclerosis at the right subtrochanteric proximal femur is unchanged, likely b [place]. No osseous destructive process. IMPRESSION: 1. Clustered enlarged borderline sized right lower quadrant mesenteric lymph nodes may represent a m ild mesenteric adenitis. Segments of a normal appendix are visualized. 2. No other acute inflammatory process identified in the abdomen or pelvis to explain patient's symp toms.
[2021-03-21 11:15] VITALS: BP 121/80; PULSE 78; RESP 16; TEMP 98.2
== END 2021-03-21 11:13 | disposition home or self-care (01) ==
LOC: EC 08:17
DX: I88.0 Nonspecific mesenteric lymphadenitis (principal); J45.909 Unspecified asthma, uncomplicated; Z91.040 Latex allergy status; Z88.8 Allergy status to other drugs, medicaments and biological substances; Z90.49 Acquired absence of other specified parts of digestive tract; Z79.51 Long term (current) use of inhaled steroids
CPT/HCPCS: 36415; 80053; 82150; 83605; 83690; 85025; 81001; 81025; 74176; 99284; 96374; 96375; 96361; J2405; J1885; J1170

== ENCOUNTER 2021-05-02 13:27 | Emergency (ER) | payer OTHER ==
[2021-05-02 13:51] VITALS: BP 113/73; PULSE 96; RESP 18; TEMP 98.2
[2021-05-02] MEDS ORDERED: SODIUM CHLORIDE 0.9% 1,000 ML IV STA (14:13)
[2021-05-02] MEDS ORDERED: MAG HYDROX/AL HYDROX/SIMETH 30 ML, HYOSCYAMINE ELIXIR 10 ML, LIDOCAINE VISCOUS 2% 10 ML PO STA ×3 (14:15)
[2021-05-02] MEDS ORDERED: FAMOTIDINE 20 MG/2 ML VIAL IV STA (14:15)
--- NOTE | 2021-05-02 14:19 | ED ---
General Adult HPI - General Chief complaint: Abdominal Pain Stated complaint: abd pain Time Seen by Provider: 05/02/21 14:03 Source: patient Mode of arrival: ambulatory Limitations: no limitations - History of Present Illness Initial comments: 25-year-old female presents to the emergency room for a chief complaint of abdominal pain. Patient has a history of asthma, fibromyalgia, cholecystectomy, anxiety. Cholecystectomy was done by Dr. William in August. Patient states she has had some mild right upper quadrant epigastric pain for the past week and a half. She states she has been having diarrhea every time she eats. She states this happens about 20-30 minutes after she eats. She denies fevers or chills. Denies lower abdominal pain.Patient has no other complaints at this time including shortness of breath, chest pain, nausea or vomiting, headache, or visual changes. - Related Data Home Medications Medication Instructions Recorded Confirmed Fluticasone/Salmeterol [Advair 1 puff INHALATION RT-BID 07/05/20 05/02/21 250-50 Diskus] Loratadine [Claritin] 10 mg PO HS 07/05/20 05/02/21 Midodrine [ProAmatine] 2.5 mg PO TID 11/12/20 05/02/21 Topiramate [Topamax] 25 mg PO HS 03/21/21 05/02/21 busPIRone HCl [Buspar] 10 mg PO HS 03/21/21 05/02/21 DULoxetine HCL [Cymbalta] 40 mg PO HS 05/02/21 05/02/21 Orsythia 1 tab PO DAILY 05/02/21 05/02/21 Previous Rx's Medication Instructions Recorded Famotidine [Pepcid] 20 mg PO BID #30 tablet 05/02/21 Allergies Allergy/AdvReac Type Severity Reaction Status Date / Time latex Allergy Rash/Hives Verified 05/02/21 15:39 sumatriptan [From Imitrex] AdvReac dizzy Verified 05/02/21 15:39 Review of Systems ROS Statement: Those systems with pertinent positive or pertinent negative responses have been documented in the HPI. ROS Other: All systems not noted in ROS Statement are negative. Past Medical History Past Medical History: Asthma, Fibromyalgia, Syncope Additional Past Medical History / Comment(s): ovarian cyst, neurocardogenic syncopy, gallstones History of Any Multi-Drug Resistant Organisms: C-DIFF Date of last positivie culture/infection: 09/2020 MDRO Source:: stool Past Surgical History: Cholecystectomy Additional Past Surgical History / Comment(s): wisdom teeth, dental implant, upper GI scope Past Anesthesia/Blood Transfusion Reactions: No Reported Reaction Past Psychological History: Anxiety, Depression Smoking Status: Never smoker Past Alcohol Use History: None Reported Past Drug Use History: None Reported - Past Family History Mother Family Medical History: No Reported History General Exam Limitations: no limitations General appearance: alert, in no apparent distress Head exam: Present: atraumatic Eye exam: Present: normal appearance, PERRL, EOMI. Absent: scleral icterus, conjunctival injection ENT exam: Present: normal exam, mucous membranes moist Neck exam: Present: normal inspection, full ROM. Absent: tenderness Respiratory exam: Present: normal lung sounds bilaterally. Absent: respiratory distress, wheezes Cardiovascular Exam: Present: regular rate, normal rhythm, normal heart sounds GI/Abdominal exam: Present: soft, tenderness (Mild epigastric right upper quadrant pain. No lower abdominal tenderness. No guarding or rebound.), normal bowel sounds. Absent: distended Neurological exam: Present: alert Course Vital Signs 05/02/21 13:47 Temperature 98.2 F Pulse Rate 96 Respiratory 18 Rate Blood Pressure 113/73 O2 Sat by Pulse 97 Oximetry Medical Decision Making - Medical Decision Making 25-year-old female relatively well known to this emergency room for abdominal pain. Right upper quadrant tenderness. No lower abdominal tenderness.. Patient had cholecystectomy last August. CBC CMP unremarkable. Urinalysis unremarkable. Patient given pain medications which did help. Reevaluated, and no persistent abdominal tenderness. At this time patient will be discharged with follow-up with GI. She will return here for any worsening symptoms. - Lab Data Result diagrams: 05/02/21 14:25 05/02/21 14:25 Lab Results 05/02/21 05/02/21 05/02/21 Range/Units 14:25 14:25 14:25 WBC 6.1 (3.8-10.6) k/uL RBC 4.33 (3.80-5.40) m/uL Hgb 13.1 (11.4-16.0) gm/dL Hct 39.0 (34.0-46.0) % MCV 90.1 (80.0-100.0) fL MCH 30.3 (25.0-35.0) pg MCHC 33.6 (31.0-37.0) g/dL RDW 12.0 (11.5-15.5) % Plt Count 363 (150-450) k/uL MPV 7.5 Neutrophils % 59 % Lymphocytes % 32 % Monocytes % 5 % Eosinophils % 2 % Basophils % 1 % Neutrophils # 3.6 (1.3-7.7) k/uL Lymphocytes # 1.9 (1.0-4.8) k/uL Monocytes # 0.3 (0-1.0) k/uL Eosinophils # 0.1 (0-0.7) k/uL Basophils # 0.1 (0-0.2) k/uL Sodium 139 (137-145) mmol/L Potassium 4.2 (3.5-5.1) mmol/L Chloride 107 (98-107) mmol/L Carbon Dioxide 24 (22-30) mmol/L Anion Gap 8 mmol/L BUN 10 (7-17) mg/dL Creatinine 0.67 (0.52-1.04) mg/dL Est GFR (CKD-EPI)AfAm >90 (>60 ml/min/1.73 sqM) Est GFR (CKD-EPI)NonAf >90 (>60 ml/min/1.73 sqM) Glucose 85 (74-99) mg/dL Calcium 9.7 (8.4-10.2) mg/dL Total Bilirubin 0.3 (0.2-1.3) mg/dL AST 26 (14-36) U/L ALT 26 (4-34) U/L Alkaline Phosphatase 57 (38-126) U/L Total Protein 7.1 (6.3-8.2) g/dL Albumin 4.1 (3.5-5.0) g/dL Amylase 82 (30-110) U/L Lipase 110 (23-300) U/L Urine Color Yellow Urine Appearance Cloudy H (Clear) Urine pH 5.0 (5.0-8.0) Ur Specific [place] 1.024 (1.001-1.035) Urine Protein Negative (Negative) Urine Glucose (UA) Negative (Negative) Urine Ketones Negative (Negative) Urine Blood Trace H (Negative) Urine Nitrite Negative (Negative) Urine Bilirubin Negative (Negative) Urine Urobilinogen <2.0 (<2.0) mg/dL Ur Leukocyte Esterase Trace H (Negative) Urine RBC 2 (0-5) /hpf Urine WBC 2 (0-5) /hpf Ur Squamous Epith Cells 3 (0-4) /hpf Urine Bacteria Occasional H (None) /hpf Urine Mucus Occasional H (None) /hpf Urine HCG, Qual (Not Detectd) 05/02/21 Range/Units 14:25 WBC (3.8-10.6) k/uL RBC (3.80-5.40) m/uL Hgb (11.4-16.0) gm/dL Hct (34.0-46.0) % MCV (80.0-100.0) fL MCH (25.0-35.0) pg MCHC (31.0-37.0) g/dL RDW (11.5-15.5) % Plt Count (150-450) k/uL MPV Neutrophils % % Lymphocytes % % Monocytes % % Eosinophils % % Basophils % % Neutrophils # (1.3-7.7) k/uL Lymphocytes # (1.0-4.8) k/uL Monocytes # (0-1.0) k/uL Eosinophils # (0-0.7) k/uL Basophils # (0-0.2) k/uL Sodium (137-145) mmol/L Potassium (3.5-5.1) mmol/L Chloride (98-107) mmol/L Carbon Dioxide (22-30) mmol/L Anion Gap mmol/L BUN (7-17) mg/dL Creatinine (0.52-1.04) mg/dL Est GFR (CKD-EPI)AfAm (>60 ml/min/1.73 sqM) Est GFR (CKD-EPI)NonAf (>60 ml/min/1.73 sqM) Glucose (74-99) mg/dL Calcium (8.4-10.2) mg/dL Total Bilirubin (0.2-1.3) mg/dL AST (14-36) U/L ALT (4-34) U/L Alkaline Phosphatase (38-126) U/L Total Protein (6.3-8.2) g/dL Albumin (3.5-5.0) g/dL Amylase (30-110) U/L Lipase (23-300) U/L Urine Color Urine Appearance (Clear) Urine pH (5.0-8.0) Ur Specific [place] (1.001-1.035) Urine Protein (Negative) Urine Glucose (UA) (Negative) Urine Ketones (Negative) Urine Blood (Negative) Urine Nitrite (Negative) Urine Bilirubin (Negative) Urine Urobilinogen (<2.0) mg/dL Ur Leukocyte Esterase (Negative) Urine RBC (0-5) /hpf Urine WBC (0-5) /hpf Ur Squamous Epith Cells (0-4) /hpf Urine Bacteria (None) /hpf Urine Mucus (None) /hpf Urine HCG, Qual Not Detected (Not Detectd) Disposition Clinical Impression: Upper abdominal pain Disposition: HOME SELF-CARE Condition: Good Instructions (If sedation given, give patient instructions): Abdominal Pain (ED) Additional Instructions: Take medications as directed. Follow-up with primary care and GI. Return to the emergency room for any worsening symptoms. Prescriptions: Famotidine [Pepcid] 20 mg PO BID #30 tablet Is patient prescribed a controlled substance at d/c from ED?: No Referrals: Nonstaff,Physician [Primary Care Provider] - 1-2 days Elaine Amaya MD [STAFF PHYSICIAN] - 1-2 days Time of Disposition: 15:54
[2021-05-02 14:40] LABS: Basophils # (A) 0.1 k/uL (0-0.2); Basophils % (A) 1 %; Eosinophils # (A) 0.1 k/uL (0-0.7); Eosinophils % (A) 2 %; HGB 13.1 gm/dL (11.4-16.0); Lymphocytes # (A) 1.9 k/uL (1.0-4.8); Lymphocytes % (A) 32 %; MCH 30.3 pg (25.0-35.0); MCHC 33.6 g/dL (31.0-37.0); MCV 90.1 fL (80.0-100.0); Mean Platelet Volume 7.5; Monocytes # (A) 0.3 k/uL (0-1.0); Monocytes % (A) 5 %; Neutrophils # (A) 3.6 k/uL (1.3-7.7); Neutrophils % (A) 59 %; Platelet Count 363 k/uL (150-450); RBC 4.33 m/uL (3.80-5.40); WBC 6.1 k/uL (3.8-10.6)
[2021-05-02 14:47] LABS: ALT 26 U/L (4-34); AST 26 U/L (14-36); African American GFR (CKD) >90 (>60 ml/min/1.73 sqM); Albumin 4.1 g/dL (3.5-5.0); Alkaline Phosphatase 57 U/L (38-126); Amylase 82 U/L (30-110); Anion Gap 8 mmol/L; Blood Urea Nitrogen 10 mg/dL (7-17); Calcium 9.7 mg/dL (8.4-10.2); Carbon Dioxide 24 mmol/L (22-30); Chloride 107 mmol/L (98-107); Glucose 85 mg/dL (74-99); Lipase 110 U/L (23-300); Non-African American GFR(CKD) >90 (>60 ml/min/1.73 sqM); Potassium 4.2 mmol/L (3.5-5.1); Sodium 139 mmol/L (137-145); Total Bilirubin 0.3 mg/dL (0.2-1.3); Total Protein 7.1 g/dL (6.3-8.2)
[2021-05-02 14:55] LABS: Appearance,Urine Cloudy (Clear); Bacteria,Urine Occasional /hpf; Bilirubin,Urine Negative (Negative); Blood,Urine Trace (Negative); Color,Urine Yellow; Glucose,Urine (UA) Negative (Negative); Ketones,Urine Negative (Negative); Leukocyte Esterase,Urine Trace (Negative); Mucus,Urine Occasional /hpf; Nitrite,Urine Negative (Negative); Protein,Urine Negative (Negative); RBC,Urine 2 /hpf (0-5); Specific Gravity,Urine 1.024 (1.001-1.035); Squamous Epithelial Cell,Urine 3 /hpf (0-4); Urobilinogen,Urine <2.0 mg/dL (<2.0); WBC,Urine 2 /hpf (0-5)
[2021-05-02] MEDS ORDERED: KETOROLAC 30 MG/ML 1 ML VIAL IVP STA (15:00)
== END 2021-05-02 16:22 | disposition home or self-care (01) ==
LOC: EC 13:27
DX: R10.11 Right upper quadrant pain (principal); R10.13 Epigastric pain; J45.909 Unspecified asthma, uncomplicated; M79.7 Fibromyalgia; F32.A Depression, unspecified; F41.9 Anxiety disorder, unspecified; Z79.899 Other long term (current) drug therapy
CPT/HCPCS: 36415; 80053; 82150; 83690; 85025; 81001; 81025; 99284; 96374; 96375; 96361; J1885

== ENCOUNTER 2021-06-03 20:23 | Inpatient (IN) | payer OTHER ==
[2021-06-03] MEDS ORDERED: SODIUM CHLORIDE 0.9% 1,000 ML IV STA (22:49)
--- NOTE | 2021-06-03 22:50 | ED ---
Seizure HPI - General Chief Complaint: Seizure Stated Complaint: Neuro Symptoms Time Seen by Provider: 06/03/21 21:34 Source: patient, EMS, RN notes reviewed, old records reviewed Mode of arrival: EMS Limitations: no limitations - History of Present Illness Initial Comments: This is a 25-year-old female presenting with recurrent seizure-like activity. Patient has been having weeks to months of seizure-like activity at home witnessed by tristen who is here at bedside he doesn't values of this activity. The events can sometimes last minutes to greater than 10 minutes. Patient states she is unsure what happens during these events she has had admit to history of psychiatric illness but does not admit to feeling anxious homicidal or suicidal no drugs or alcohol. No trauma no history of head trauma. No other complaints. To see his physician regarding the patient very nervous about a her mental physical and neurological will be MD Complaint: seizure, possible seizure -: week(s) Description of Episode: loss of consciousness, tonic-clonic movement, post-event confusion -: minutes(s) Witnessed: yes - by bystander Trauma: No Place: home Possible Precipitating Event: none Associated Symptoms: denies other symptoms Treatments Prior to Arrival: none - Related Data Home Medications Medication Instructions Recorded Confirmed Fluticasone/Salmeterol [Advair 1 puff INHALATION RT-BID 07/05/20 06/03/21 250-50 Diskus] Loratadine [Claritin] 10 mg PO HS 07/05/20 06/03/21 Midodrine [ProAmatine] 2.5 mg PO TID 11/12/20 06/03/21 Topiramate [Topamax] 25 mg PO HS 03/21/21 06/03/21 busPIRone HCl [Buspar] 10 mg PO HS 03/21/21 06/03/21 DULoxetine HCL [Cymbalta] 40 mg PO HS 05/02/21 06/03/21 Fluticasone Nasal [place] [Flonase 1 spray EA NOSTRIL HS 06/03/21 06/03/21 Nasal [place]] Vienva 0.1-0.02mg Tablet 1 tab PO HS 06/03/21 06/03/21 Allergies Allergy/AdvReac Type Severity Reaction Status Date / Time latex Allergy Rash/Hives Verified 06/03/21 20:35 sumatriptan [From Imitrex] AdvReac dizzy Verified 06/03/21 20:35 Review of Systems ROS Statement: Those systems with pertinent positive or pertinent negative responses have been documented in the HPI. ROS Other: All systems not noted in ROS Statement are negative. Past Medical History Past Medical History: Asthma, Fibromyalgia, Syncope Additional Past Medical History / Comment(s): ovarian cyst, neurocardogenic syncopy, gallstones History of Any Multi-Drug Resistant Organisms: C-DIFF Date of last positivie culture/infection: 09/2020 MDRO Source:: stool Past Surgical History: Cholecystectomy Additional Past Surgical History / Comment(s): wisdom teeth, dental implant, upper GI scope Past Anesthesia/Blood Transfusion Reactions: No Reported Reaction Past Psychological History: Anxiety, Depression Smoking Status: Never smoker Past Alcohol Use History: None Reported Past Drug Use History: None Reported - Past Family History Mother Family Medical History: No Reported History General Exam Limitations: no limitations General appearance: alert, in no apparent distress, anxious, lethargic Head exam: Present: atraumatic, normocephalic, normal inspection Eye exam: Present: normal appearance, PERRL, EOMI. Absent: scleral icterus, conjunctival injection, periorbital swelling ENT exam: Present: normal exam, mucous membranes moist Neck exam: Present: normal inspection. Absent: tenderness, meningismus, lymphadenopathy Respiratory exam: Present: normal lung sounds bilaterally. Absent: respiratory distress, wheezes, rales, rhonchi, stridor Cardiovascular Exam: Present: normal rhythm, tachycardia, normal heart sounds. Absent: systolic murmur, diastolic murmur, rubs, gallop, clicks GI/Abdominal exam: Present: soft, normal bowel sounds. Absent: distended, tenderness, guarding, rebound, rigid Extremities exam: Present: normal inspection, full ROM, normal capillary refill. Absent: tenderness, pedal edema, joint swelling, calf tenderness Back exam: Present: normal inspection Neurological exam: Present: alert, oriented X3, CN II-XII intact Psychiatric exam: Present: normal affect, normal mood Skin exam: Present: warm, dry, intact, normal color. Absent: rash Course Vital Signs 06/03/21 06/04/21 20:26 00:04 Temperature 97.6 F Pulse Rate 107 H 78 Respiratory 16 16 Rate Blood Pressure 133/85 112/71 O2 Sat by Pulse 99 98 Oximetry - Reevaluation(s) Reevaluation #1: 06/04/21 00:50 Medical record is reviewed Reevaluation #2: 06/04/21 00:50 Did have one more seizure-like activity here in the ER Reevaluation #3: 06/04/21 00:50 Patient after that initial seizure activity has not had another episode Reevaluation #4: 06/04/21 00:50 Spoke patient regarding findings and questions have been answered - Consultations Consultation #1: spoke w [facility] re admission and they agree Medical Decision Making - Medical Decision Making 25 female with admittedly psychiatric illness and issues coming with recurrent seizure-like activity tristen does have multiple reveals the patient seizure- like activity at this point patient be admitted for neurology evaluation and treatment - Lab Data Result diagrams: 06/03/21 22:52 06/03/21 22:52 Lab Results 06/03/21 06/03/21 06/03/21 Range/Units 22:52 22:52 22:52 WBC 6.9 (3.8-10.6) k/uL RBC 4.42 (3.80-5.40) m/uL Hgb 13.5 (11.4-16.0) gm/dL Hct 40.2 (34.0-46.0) % MCV 90.9 (80.0-100.0) fL MCH 30.7 (25.0-35.0) pg MCHC 33.7 (31.0-37.0) g/dL RDW 12.5 (11.5-15.5) % Plt Count 383 (150-450) k/uL MPV 8.3 Neutrophils % 58 % Lymphocytes % 35 % Monocytes % 3 % Eosinophils % 1 % Basophils % 1 % Neutrophils # 4.0 (1.3-7.7) k/uL Lymphocytes # 2.4 (1.0-4.8) k/uL Monocytes # 0.2 (0-1.0) k/uL Eosinophils # 0.1 (0-0.7) k/uL Basophils # 0.1 (0-0.2) k/uL Sodium 137 (137-145) mmol/L Potassium 3.4 L (3.5-5.1) mmol/L Chloride 102 (98-107) mmol/L Carbon Dioxide 22 (22-30) mmol/L Anion Gap 13 mmol/L BUN 14 (7-17) mg/dL Creatinine 0.70 (0.52-1.04) mg/dL Est GFR (CKD-EPI)AfAm >90 (>60 ml/min/1.73 sqM) Est GFR (CKD-EPI)NonAf >90 (>60 ml/min/1.73 sqM) Glucose 113 H (74-99) mg/dL Calcium 9.7 (8.4-10.2) mg/dL Magnesium 1.9 (1.6-2.3) mg/dL Total Bilirubin 0.3 (0.2-1.3) mg/dL AST 38 H (14-36) U/L ALT 46 H (4-34) U/L Alkaline Phosphatase 58 (38-126) U/L Total Protein 7.2 (6.3-8.2) g/dL Albumin 4.3 (3.5-5.0) g/dL Urine Color Yellow Urine Appearance Clear (Clear) Urine pH 6.0 (5.0-8.0) Ur Specific [place] 1.033 (1.001-1.035) Urine Protein Trace H (Negative) Urine Glucose (UA) Negative (Negative) Urine Ketones Negative (Negative) Urine Blood Negative (Negative) Urine Nitrite Negative (Negative) Urine Bilirubin Negative (Negative) Urine Urobilinogen <2.0 (<2.0) mg/dL Ur Leukocyte Esterase Negative (Negative) Salicylates 3.6 mg/dL Urine Opiates Screen Not Detected (NotDetected) Ur Oxycodone Screen Not Detected (NotDetected) Urine Methadone Screen Not Detected (NotDetected) Ur Propoxyphene Screen Not Detected (NotDetected) Acetaminophen <10.0 ug/mL Ur Barbiturates Screen Not Detected (NotDetected) U Tricyclic Antidepress Not Detected (NotDetected) Ur Phencyclidine Scrn Not Detected (NotDetected) Ur Amphetamines Screen Not Detected (NotDetected) U Methamphetamines Scrn Not Detected (NotDetected) U Benzodiazepines Scrn Not Detected (NotDetected) Urine Cocaine Screen Not Detected (NotDetected) U Marijuana (THC) Screen Not Detected (NotDetected) Serum Alcohol <10 mg/dL - EKG Data -: EKG Interpreted by Me (EKG sinus rhythm 84 MO 181 QRS 104 QTC 406) - Radiology Data Radiology results: report reviewed (CT brain negative for acute disease), image reviewed Disposition Clinical Impression: Generalized seizure, New onset seizure, Epileptic seizure, generalized Disposition: ADMITTED IP TO THIS [facility] Condition: Good Instructions (If sedation given, give patient instructions): Seizure/Epilepsy Discharge Instructions & Follow-Up, Recurrent Seizures in Adults (ED) Is patient prescribed a controlled substance at d/c from ED?: No Referrals: Nonstaff,Physician [Primary Care Provider] - 1-2 days
[2021-06-03 23:20] LABS: Appearance,Urine Clear (Clear); Bilirubin,Urine Negative (Negative); Blood,Urine Negative (Negative); Color,Urine Yellow; Glucose,Urine (UA) Negative (Negative); Ketones,Urine Negative (Negative); Leukocyte Esterase,Urine Negative (Negative); Nitrite,Urine Negative (Negative); Protein,Urine Trace (Negative); Specific Gravity,Urine 1.033 (1.001-1.035); Urobilinogen,Urine <2.0 mg/dL (<2.0)
[2021-06-03 23:24] LABS: Chloride 102 mmol/L (98-107)
[2021-06-03 23:27] LABS: ALT 46 U/L (4-34); AST 38 U/L (14-36); Acetaminophen <10.0 ug/mL; African American GFR (CKD) >90 (>60 ml/min/1.73 sqM); Albumin 4.3 g/dL (3.5-5.0); Alcohol <10 mg/dL; Alkaline Phosphatase 58 U/L (38-126); Anion Gap 13 mmol/L; Blood Urea Nitrogen 14 mg/dL (7-17); Calcium 9.7 mg/dL (8.4-10.2); Carbon Dioxide 22 mmol/L (22-30); Glucose 113 mg/dL (74-99); Magnesium 1.9 mg/dL (1.6-2.3); Non-African American GFR(CKD) >90 (>60 ml/min/1.73 sqM); Potassium 3.4 mmol/L (3.5-5.1); Salicylate 3.6 mg/dL; Sodium 137 mmol/L (137-145); Total Bilirubin 0.3 mg/dL (0.2-1.3); Total Protein 7.2 g/dL (6.3-8.2)
[2021-06-03 23:31] LABS: Amphetamine Screen,Urine Not Detected (NotDetected); Barbiturate Screen,Urine Not Detected (NotDetected); Benzodiazepines Screen,Urine Not Detected (NotDetected); Cocaine Screen,Urine Not Detected (NotDetected); Methadone Screen, Urine Not Detected (NotDetected); Opiate Screen,Urine Not Detected (NotDetected); Oxycodone Screen, Urine Not Detected (NotDetected); Phencyclidine Screen,Urine Not Detected (NotDetected); Tricyclic Antidepressant,Urine Not Detected (NotDetected); Urn Cannabinoid Scrn Not Detected (NotDetected)
--- NOTE | 2021-06-03 23:39 | CT ---
EXAMINATION TYPE: CT brain wo con DATE OF EXAM: 06/03/2021 COMPARISON: 11/12/2020 HISTORY: seizure CT DLP: 1008.4 mGycm Automated exposure control for dose reduction was used. Images of the brain obtained without contrast. Ventricles have normal size. There is no mass effect or midline shift. There is no sign of intracrani al hemorrhage. Calvarium is intact. There is normal aeration of the mastoid sinuses. IMPRESSION: Negative unenhanced head CT scan. No change.
[2021-06-03 23:53] LABS: Basophils # (A) 0.1 k/uL (0-0.2); Basophils % (A) 1 %; Eosinophils # (A) 0.1 k/uL (0-0.7); Eosinophils % (A) 1 %; HCT 40.2 % (34.0-46.0); HGB 13.5 gm/dL (11.4-16.0); Lymphocytes # (A) 2.4 k/uL (1.0-4.8); Lymphocytes % (A) 35 %; MCH 30.7 pg (25.0-35.0); MCHC 33.7 g/dL (31.0-37.0); MCV 90.9 fL (80.0-100.0); Mean Platelet Volume 8.3; Monocytes # (A) 0.2 k/uL (0-1.0); Monocytes % (A) 3 %; Neutrophils % (A) 58 %; Platelet Count 383 k/uL (150-450); RBC 4.42 m/uL (3.80-5.40); RDW 12.5 % (11.5-15.5); WBC 6.9 k/uL (3.8-10.6)
[2021-06-04] MEDS ORDERED: POTASSIUM CHLORIDE ER 20 MEQ TAB.ER PO STA ×2 (00:12→09:10)
[2021-06-04] MEDS ORDERED: PROCHLORPERAZINE INJ 10 MG/2 ML VIAL IVP STA (00:19)
[2021-06-04] MEDS ORDERED: diphenhydrAMINE 50 MG/ML 1 ML VIAL IVP STA (00:19)
[2021-06-04] MEDS ORDERED: KETOROLAC 15 MG/ML 1 ML VIAL IVP STA (00:19)
[2021-06-04] MEDS ORDERED: MORPHINE SULFATE 4 MG/ML SYRINGE IV PRN (00:52)
[2021-06-04] MEDS ORDERED: NALOXONE 0.4 MG/ML 1 ML VIAL IV PRN (00:52)
[2021-06-04] MEDS ORDERED: ONDANSETRON 4 MG/2 ML VIAL IVP PRN (00:52)
[2021-06-04] MEDS ORDERED: LORazepam 2 MG/ML INJ IV PRN (00:52)
[2021-06-04] MEDS ORDERED: levETIRAcetam IV 1,000 MG in SALINE 1 100ML.BAG IVPB STA (00:56)
[2021-06-04] MEDS ORDERED: DULoxetine HCL 20 MG CAPSULE.DR PO STA (01:24)
[2021-06-04] MEDS ORDERED: TOPIRAMATE 25 MG TAB PO STA (01:24)
[2021-06-04] MEDS ORDERED: busPIRone HCl 10 MG TAB PO STA (01:24)
[2021-06-04] MEDS ORDERED: LORATADINE 10 MG TAB PO STA (01:24)
[2021-06-04] MEDS: SODIUM CHLORIDE 0.9% 1,000 ML IV SCH ×2 (06:42→09:40)
--- NOTE | 2021-06-04 09:13 | P.HPIM ---
History of Present Illness Patient is a 25-year-old female came in with the concerns of seizure.. Apparently has asked for the patient at the seizure was witnessed by the grandfather. Patient started having symptoms of tingling numbness in the legs followed by syncope as per the patient patient didn't the fall but I down to the floor. As per the patient event lasted for 10 minutes which is tonic-clonic activity. Patient is able to show me redo which didn't appear to be like a seizure. As per the patient patient lost consciousness but no post ictal c onfusion patient denied any tongue biting or loss of bowel or bladder continence. Patient in the past followed up with the neurologist for similar complaints who diagnosed her with pseudoseizures. Patient does have psychiatric history does follow with psychiatry as an outpatient. Patient had a CT of the head which is within normal limits that no significant lab abnormalities all the lactic acid was not done anion gap is only 13. Patient has follow-up with the [facility] for 24 hour EEG monitoring. REVIEW OF SYSTEMS: CONSTITUTIONAL: No fever, no malaise, no fatigue. HEENT: No recent visual problems or hearing problems. Denied any sore throat. CARDIOVASCULAR: No chest pain, orthopnea, PND, no palpitations, no syncope. PULMONARY: No shortness of breath, no cough, no hemoptysis. GASTROINTESTINAL: No diarrhea, no nausea, no vomiting, no abdominal pain. NEUROLOGICAL: No headaches, no weakness. HEMATOLOGICAL: Denies any bleeding or petechiae. GENITOURINARY: Denies any burning micturition, frequency, or urgency. MUSCULOSKELETAL/RHEUMATOLOGICAL: Denies any joint pain, swelling, or any muscle pain. ENDOCRINE: Denies any polyuria or polydipsia. The rest of the 14-point review of systems is negative. PHYSICAL EXAMINATION: GENERAL: The patient is alert and oriented x3, not in any acute distress. Well developed, well nourished. HEENT: Pupils are round and equally reacting to light. EOMI. No scleral icterus. No conjunctival pallor. Normocephalic, atraumatic. No pharyngeal erythema. No thyromegaly. CARDIOVASCULAR: S1 and S2 present. No murmurs, rubs, or gallops. PULMONARY: Chest is clear to auscultation, no wheezing or crackles. ABDOMEN: Soft, nontender, nondistended, normoactive bowel sounds. No palpable organomegaly. MUSCULOSKELETAL: No joint swelling or deformity. EXTREMITIES: No cyanosis, clubbing, or pedal edema. NEUROLOGICAL: Gross neurological examination did not reveal any focal deficits. SKIN: No rashes. Assessment and plan -Rule out seizures: Patient appears to have pseudoseizures patient is being evaluated with neurology neurology recommended to increase her Topamax to 25 twice a day and patient will need outpatient EEG monitoring for 24 hours which she has an appointment for and patient will be discharged today -Bipolar disorder -Asthma without any acute exacerbation Fibrmyalgia Past Medical History Past Medical History: Asthma, Fibromyalgia, Syncope Additional Past Medical History / Comment(s): ovarian cyst, neurocardogenic syncopy, gallstones History of Any Multi-Drug Resistant Organisms: C-DIFF Date of last positivie culture/infection: 09/2020 MDRO Source:: stool Past Surgical History: Cholecystectomy Additional Past Surgical History / Comment(s): wisdom teeth, dental implant, upper GI scope Past Anesthesia/Blood Transfusion Reactions: No Reported Reaction Past Psychological History: Anxiety, Depression Smoking Status: Never smoker Past Alcohol Use History: None Reported Past Drug Use History: None Reported - Past Family History Mother Family Medical History: No Reported History Medications and Allergies Home Medications Medication Instructions Recorded Confirmed Type Fluticasone/Salmeterol [Advair 1 puff INHALATION RT-BID 07/05/20 06/03/21 History 250-50 Diskus] Loratadine [Claritin] 10 mg PO HS 07/05/20 06/03/21 History Midodrine [ProAmatine] 2.5 mg PO TID 11/12/20 06/03/21 History busPIRone HCl [Buspar] 10 mg PO HS 03/21/21 06/03/21 History DULoxetine HCL [Cymbalta] 40 mg PO HS 05/02/21 06/03/21 History Fluticasone Nasal [place] [Flonase 1 spray EA NOSTRIL HS 06/03/21 06/03/21 History Nasal [place]] Vienva 0.1-0.02mg Tablet 1 tab PO HS 06/03/21 06/03/21 History Topiramate [Topamax] 25 mg PO BID #60 cap 06/04/21 Rx Allergies Allergy/AdvReac Type Severity Reaction Status Date / Time latex Allergy Rash/Hives Verified 06/03/21 20:35 sumatriptan [From Imitrex] AdvReac dizzy Verified 06/03/21 20:35 Physical Exam Vitals: Vital Signs Temp Pulse Pulse Resp BP BP Pulse Ox 06/04/21 03:45 98.1 F 83 18 112/60 98 06/04/21 02:00 98.0 F 76 18 116/61 97 06/04/21 01:38 72 16 101/58 98 06/04/21 00:04 78 16 112/71 98 06/03/21 20:26 97.6 F 107 H 16 133/85 99 Intake and Output 06/03/21 06/04/21 06/04/21 22:59 06:59 14:59 Intake Total 10 Balance 10 Intake: IV 10 Invasive Line 1 10 Other: Voiding Method Toilet # Voids 1 Weight 88.904 kg 88.904 kg Results CBC & Chem 7: 06/03/21 22:52 06/03/21 22:52 Labs: Abnormal Lab Results - Last 24 Hours (Table) 06/03/21 06/03/21 Range/Units 22:52 22:52 Potassium 3.4 L (3.5-5.1) mmol/L Glucose 113 H (74-99) mg/dL AST 38 H (14-36) U/L ALT 46 H (4-34) U/L Urine Protein Trace H (Negative)
--- NOTE | 2021-06-04 09:14 | P.DS ---
Providers Date of admission: 06/04/21 00:52 Attending physician: Trace Garland Consults: 06/04/21 00:53 Consult Physician Routine Consulting Provider: Desiree Acosta Consult Reason/Comments: Sz Do you want consulting provider notified?: Yes Primary care physician: Physician Nonstaff Hospital Course: If Cleared by neurology patient will be discharged today Patient Condition at Discharge: Good Plan - Discharge Summary Discharge Rx Participant: No New Discharge Prescriptions: Continue Loratadine [Claritin] 10 mg PO HS Fluticasone/Salmeterol [Advair 250-50 Diskus] 1 puff INHALATION RT-BID Midodrine [ProAmatine] 2.5 mg PO TID DULoxetine HCL [Cymbalta] 40 mg PO HS Fluticasone Nasal [place] [Flonase Nasal [place]] 1 spray EA NOSTRIL HS Vienva 0.1-0.02mg Tablet 1 tab PO HS busPIRone HCl [Buspar] 10 mg PO HS Changed Topiramate [Topamax] 25 mg PO BID #60 cap Discharge Medication List Fluticasone/Salmeterol [Advair 250-50 Diskus] 1 puff INHALATION RT-BID 07/05/20 [History] Loratadine [Claritin] 10 mg PO HS 07/05/20 [History] Midodrine [ProAmatine] 2.5 mg PO TID 11/12/20 [History] busPIRone HCl [Buspar] 10 mg PO HS 03/21/21 [History] DULoxetine HCL [Cymbalta] 40 mg PO HS 05/02/21 [History] Fluticasone Nasal [place] [Flonase Nasal [place]] 1 spray EA NOSTRIL HS 06/03/21 [History] Vienva 0.1-0.02mg Tablet 1 tab PO HS 06/03/21 [History] Topiramate [Topamax] 25 mg PO BID #60 cap 06/04/21 [Rx] Follow up Appointment(s)/Referral(s): Nonstaff,Physician [Primary Care Provider] - 3 Days Ericka Butts MD [REFERRING] - 1 Week Patient Instructions/Handouts: Seizure/Epilepsy Discharge Instructions & Follow-Up, Recurrent Seizures in Adults (ED) Discharge Disposition: HOME SELF-CARE
[2021-06-04 09:39] VITALS: BP 124/80; PULSE 91; RESP 16; TEMP 98.2
[2021-06-04] MEDS ORDERED: TOPIRAMATE 25 MG TAB PO SCH ×2 (10:15→21:00)
--- NOTE | 2021-06-04 10:15 | P.CNNES ---
History of Present Illness Consult date: 06/04/21 Requesting physician: Louis Huntley Reason for Consult: seizure History of Present Illness: This is a 25-year-old woman with history of neuro-cardiogenic syncope, COVID-19 on 03/2020, major depression, anxiety, PTSD who presented to the emergency department on 06/04/2021 for recurrent seizure-like activity. Per the patient for the past two week she has been having shaking-like episodes for the past two weeks and has had 6 episodes so far. She describes them as initially feels dizzy, legs and her body feels heavy, has sensation of passing out then she loses consciousness. She was told during the episodes her body shakes throughout lasting 5-10 minutes then has post-ictal confusion for 5 minutes. She denies urinary, bowel incontinence or tongue bite associated with these. She denies history of seizures. She feels heat trigger these episodes. She does not feels more stressed than normal. She followed-up with Dr. Smith for her complaints of numbness and was told it was nothing according to patient. She is in the process of seeing neurologist with [facility]. She follows- up with cardiology team and was told she has neuro-cardiogenic syncope in which she passes out and is on Midodrine but she denies any shaking associated with them and has been controlled for 7 months. Later patient showed me a video of her one of episode in which she had shaking but it was not tonic-clonic. She was drowsy, non-rhythmic tremoring of upper extremities. No foaming around the mouth. Patient is on Topamax 25mg qhs for her migraine. She denies family history of seizures. Patient is on home medication of Topamax 25 mg daily at bedtime, Claritin, Cymbalta 40 mg daily at bedtime, BuSpar 10 mg daily at bedtime, midodrine 2.5 mg 1 tablet 3 times a day. Some other workup in the hospital consisted of: Initial vital signs his blood pressure 133/85, heart rate of 107, respiratory of 16, temperature of 97.6 Fahrenheit oral, and the pulse ox of 99% room air. CBC with differential is unremarkable Chemistry panel is the AST and ALT is minimally elevated otherwise the potassium was minimally low of 3.4 and the rest of the chemistry panel is unremarkable left. Initial serum glucose is 113 and calcium is 9.7 magnesium is 1.9. Urinalysis is negative for urinary tract infection. Urine drug screen is nondetected. The serum alcohol was less than 10, acetaminophen is less than 10, Salicylates is 3.6. CT of the head is reported as negative on has had computed tomography scan. No change. I personally reviewed the CT of the head and there is no acute subacute ischemia, intracranial hemorrhage, any visible mass or edema noticeable. EKG is reported as sinus rhythm. Nonspecific ST and T-wave abnormality or borderline EKG. Review of Systems Review of system: The 12 point system was reviewed and apparent positive and negative per HPI. Past Medical History Past Medical History: Asthma, Fibromyalgia, Syncope Additional Past Medical History / Comment(s): ovarian cyst, neurocardogenic syncopy, gallstones History of Any Multi-Drug Resistant Organisms: C-DIFF Date of last positivie culture/infection: 09/2020 MDRO Source:: stool Past Surgical History: Cholecystectomy Additional Past Surgical History / Comment(s): wisdom teeth, dental implant, upper GI scope Past Anesthesia/Blood Transfusion Reactions: No Reported Reaction Past Psychological History: Anxiety, Depression Smoking Status: Never smoker Past Alcohol Use History: None Reported Past Drug Use History: None Reported - Past Family History Mother Family Medical History: No Reported History Medications and Allergies Home Medications Medication Instructions Recorded Confirmed Type Fluticasone/Salmeterol [Advair 1 puff INHALATION RT-BID 07/05/20 06/03/21 His tory 250-50 Diskus] Loratadine [Claritin] 10 mg PO HS 07/05/20 06/03/21 History Midodrine [ProAmatine] 2.5 mg PO TID 11/12/20 06/03/21 History busPIRone HCl [Buspar] 10 mg PO HS 03/21/21 06/03/21 History DULoxetine HCL [Cymbalta] 40 mg PO HS 05/02/21 06/03/21 History Fluticasone Nasal [place] [Flonase 1 spray EA NOSTRIL HS 06/03/21 06/03/21 History Nasal [place]] Vienva 0.1-0.02mg Tablet 1 tab PO HS 06/03/21 06/03/21 History Topiramate [Topamax] 25 mg PO BID #60 cap 06/04/21 Rx Allergies Allergy/AdvReac Type Severity Reaction Status Date / Time latex Allergy Rash/Hives Verified 06/03/21 20:35 sumatriptan [From Imitrex] AdvReac dizzy Verified 06/03/21 20:35 Physical Examination - Vital Signs Vital Signs: Vital Signs Temp Pulse Pulse Resp BP BP Pulse Ox 06/04/21 03:45 98.1 F 83 18 112/60 98 06/04/21 02:00 98.0 F 76 18 116/61 97 06/04/21 01:38 72 16 101/58 98 06/04/21 00:04 78 16 112/71 98 06/03/21 20:26 97.6 F 107 H 16 133/85 99 Intake and Output 06/03/21 06/04/21 06/04/21 22:59 06:59 14:59 Intake Total 10 Balance 10 Intake: IV 10 Invasive Line 1 10 Other: Voiding Method Toilet # Voids 1 Weight 88.904 kg 88.904 kg GENERAL: The patient is lying in bed and is not in acute distress. CHEST: The heart rate is regular rate rhythm. No murmurs to auscultation. LUNG: Clear to auscultation bilaterally no wheezing noted throughout. Not labored breathing. ABDOMEN/GI: Bowel sounds present in all 4 quadrants. No tenderness to palpation throughout. NEUROLOGICAL: Higher mental function: The patient is awake, alert, oriented to self, place and time. Patient is following commands. No aphasia and no neglect. Cranial nerves: The pupils are round, equal and reactive to light and accommodation. Visual gregory are full to confrontation throughout. Extraocular movement is intact no nystagmus is noted. Facial sensation is normal to touch throughout. The facial strength is normal throughout. Hearing is normal bilaterally to hand rub. Tongue is midline and moved [id number] without any difficulty. No dysarthria is noted. Shoulder shrug is normal bilaterally. Motor: The strength is 5 over 5 throughout. Normal tone and bulk. Cerebellum: Normal finger to nose heel to chin bilaterally. Sensation: Sensation is normal to touch throughout. Reflexes (right/left): 2+ throughout. Plantars are downgoing bilaterally. Results - Laboratory Findings CBC and BMP: 06/03/21 22:52 06/03/21 22:52 Abnormal Lab Findings: Abnormal Labs 06/03/21 06/03/21 22:52 22:52 Potassium 3.4 L Glucose 113 H AST 38 H ALT 46 H Urine Protein Trace H Assessment and Plan Assessment: Seizure-like activity for last two weeks. Unsure if these are truly epileptic in nature vs nonepileptic. The labs were unremarkable on this admission which does not support the patient having seizure. The video she also shows was not absolutely conclusive for seizure. Neuro-cardiogenic syncope and is on Midodrine (per patient has been controlled for past 7 months) History of COVID-19 Migraine Major depression Anxiety PTSD Plan: Routine EEG is ordered. The EEG we'll not be done on told this Sunday. Patient was notified of this and instead wants it as outpatient. It will be coordinated by explosive ordnance disposal technician. In the ED the patient was loaded with Keppra 1 g once then was started on 1000 every 12 hours. I'll discontinue the Keppra I thousand milligrams every 12 hours since Keppra can worsen the behavioral effect. Patient is on home dose of Topamax 25 daily at bedtime and I will increase it to 25 every 12 hours and in a week can go up to 50 mg 1 tablet twice if she continues to have shaking. If EEG is negative for seizure and captures episodes recommend tapering the Topamax. Q4 hour neuro checks Recommend MRI Brain w/o. This can be coordinated as outpatient if unable to be completed today. Patient is on seizure precaution and seizure pads. Recommend patient to follow-up with psychiatry team and neurology team as outpatient within 1-2 weeks. We'll defer the rest of the medical management to the primary team. Upon discharged, patient is to follow-up with a neurologist as outpatient (she is in process of seeing someone at [facility]). She is to continue to follow-up with her rn physician office and psychologist/psychiatry team. The plan is discussed with patient, primary attending and her nurse. Thank you for the consultation. Dariel Hunter M.D. Neuro-Hospitalist Time with Patient: Greater than 30
[2021-06-04] MEDS ORDERED: MIDODRINE 5 MG TAB PO SCH (12:30)
[2021-06-04] MEDS ORDERED: levETIRAcetam IV 1,000 MG in SALINE 1 100ML.BAG IVPB SCH (13:00)
[2021-06-04] MEDS ORDERED: SYMBICORT 80-4.5 MCG INHALER INHALATION SCH (20:00)
[2021-06-04] MEDS ORDERED: DULoxetine HCL 20 MG CAPSULE.DR PO SCH (21:00)
[2021-06-04] MEDS ORDERED: ETHINYL ESTRADIOL PO SCH (21:00)
[2021-06-04] MEDS ORDERED: FLUTICASONE 50MCG/SPRAY NASAL 16GM EA NOSTRIL SCH (21:00)
[2021-06-04] MEDS ORDERED: busPIRone HCl 10 MG TAB PO SCH (21:00)
[2021-06-04] MEDS ORDERED: LEVONORGESTREL PO SCH (21:00)
== END 2021-06-04 11:48 | disposition home or self-care (01) | DRG 101 ==
LOC: EC 20:23 → 3SCARD 06-04 00:52
PROVIDERS: ADMIT Hospitalist; ATTEND Hospitalist
DX: R56.9 Unspecified convulsions (principal); G43.909 Migraine, unspecified, not intractable, without status migrainosus; J45.909 Unspecified asthma, uncomplicated; R55 Syncope and collapse; M79.7 Fibromyalgia; F43.10 Post-traumatic stress disorder, unspecified; F31.9 Bipolar disorder, unspecified; Z79.899 Other long term (current) drug therapy; Z86.16 Personal history of COVID-19; Z90.49 Acquired absence of other specified parts of digestive tract; Z91.040 Latex allergy status; Z88.8 Allergy status to other drugs, medicaments and biological substances; Z87.19 Personal history of other diseases of the digestive system
CPT/HCPCS: 36415; 70450; 80053; 80143; 80179; 80201; 80306; 80320; 81003; 83735; 85025; 93005; 96361; 96374; 96375; 99285

== ENCOUNTER 2021-06-06 13:40 | Emergency (ER) | payer OTHER ==
[2021-06-06 13:51] VITALS: TEMP 97.5
[2021-06-06] MEDS ORDERED: SODIUM CHLORIDE 0.9% 1,000 ML IV STA (15:21)
--- NOTE | 2021-06-06 15:32 | ED ---
General Adult HPI - General Chief complaint: Seizure Stated complaint: seizure Time Seen by Provider: 06/06/21 14:17 Source: patient, EMS Mode of arrival: EMS Limitations: no limitations - History of Present Illness Initial comments: This 25-year-old female with a recent diagnosis of seizure disorder presents emergency Department after having a seizure today. Patient states her first seizure was 3 weeks ago and states she did start seeing a neurologist, however she does not like the neurologist just and recently found a new one. Patient states since her first seizure 3 weeks ago she has had a total of 6 seizures. Patient states she did have a seizure on Sunday which she did present to this hospital for and was admitted and discharged on Sunday. Patient states she did get a CAT scan of her head, however she does not want one here today because she did not hit her head and does not further radiation exposure. Patient states she was at work today and did begin to feel lightheaded so she went to her bosses office and laid on the floor just in case she had a seizure, patient states her boss noted mild convulsions for 3-5 minutes. Patient states she was unable to talk for 3-5 minutes after the seizure. Patient denies any bowel or bladder incontinence, biting tongue, nausea or vomiting during this episode. Patient states she does take Topamax 2 times a day. Patient does state she feels more fatigued after these episodes of seizure-like activity. Patient states she did find a new neurologist but she does have an appointment with on July 29 where she will be getting an EEG of her brain. She denied hitting her head today and states her boss told her that she did not hit her head as she was arguing lying on the ground. Patient denies any chest pain, shortness of breath, abdominal pain, nausea, vomiting, headache, lightheadedness, dizziness, change in bowel or bladder. - Related Data Home Medications Medication Instructions Recorded Confirmed Fluticasone/Salmeterol [Advair 1 puff INHALATION RT-BID 07/05/20 06/03/21 250-50 Diskus] Loratadine [Claritin] 10 mg PO HS 07/05/20 06/03/21 Midodrine [ProAmatine] 2.5 mg PO TID 11/12/20 06/03/21 busPIRone HCl [Buspar] 10 mg PO HS 03/21/21 06/03/21 DULoxetine HCL [Cymbalta] 40 mg PO HS 05/02/21 06/03/21 Fluticasone Nasal [place] [Flonase 1 spray EA NOSTRIL HS 06/03/21 06/03/21 Nasal [place]] Vienva 0.1-0.02mg Tablet 1 tab PO HS 06/03/21 06/03/21 Previous Rx's Medication Instructions Recorded Topiramate [Topamax] 25 mg PO BID #60 cap 06/04/21 Allergies Allergy/AdvReac Type Severity Reaction Status Date / Time latex Allergy Rash/Hives Verified 06/06/21 13:45 sumatriptan [From Imitrex] AdvReac dizzy Verified 06/06/21 13:45 Review of Systems ROS Statement: Those systems with pertinent positive or pertinent negative responses have been documented in the HPI. ROS Other: All systems not noted in ROS Statement are negative. Past Medical History Past Medical History: Asthma, Fibromyalgia, Seizure Disorder, Syncope Additional Past Medical History / Comment(s): ovarian cyst, neurocardogenic syncopy, gallstones History of Any Multi-Drug Resistant Organisms: C-DIFF Date of last positivie culture/infection: 09/2020 MDRO Source:: stool Past Surgical History: Cholecystectomy Additional Past Surgical History / Comment(s): wisdom teeth, dental implant, upper GI scope Past Anesthesia/Blood Transfusion Reactions: No Reported Reaction Past Psychological History: Anxiety, Depression Smoking Status: Never smoker Past Alcohol Use History: None Reported Past Drug Use History: None Reported - Past Family History Mother Family Medical History: No Reported History General Exam Limitations: no limitations General appearance: alert, in no apparent distress Head exam: Present: atraumatic, normocephalic Eye exam: Present: normal appearance, PERRL, EOMI. Absent: scleral icterus, conjunctival injection, periorbital swelling, periorbital tenderness Pupils: Present: normal accommodation ENT exam: Present: mucous membranes moist Neck exam: Present: normal inspection, full ROM. Absent: tenderness, meningismus, lymphadenopathy Respiratory exam: Present: normal lung sounds bilaterally. Absent: respiratory distress, wheezes, rales, rhonchi, stridor Cardiovascular Exam: Present: regular rate, normal rhythm, normal heart sounds. Absent: systolic murmur, diastolic murmur, rubs, gallop, clicks GI/Abdominal exam: Present: soft, normal bowel sounds. Absent: distended, tenderness, guarding, rebound, rigid Extremities exam: Present: normal inspection, full ROM, normal capillary refill. Absent: tenderness, pedal edema, joint swelling, calf tenderness Back exam: Present: normal inspection, full ROM. Absent: CVA tenderness (R), CVA tenderness (L), paraspinal tenderness, vertebral tenderness Neurological exam: Present: alert, oriented X3, CN II-XII intact Psychiatric exam: Present: normal affect, normal mood Skin exam: Present: warm, dry, intact, normal color. Absent: rash Course Vital Signs 06/06/21 13:45 Temperature 97.5 F L Pulse Rate 85 Respiratory 18 Rate Blood Pressure 115/82 O2 Sat by Pulse 99 Oximetry EKG Findings - EKG Comments: EKG Findings:: EKG: Sinus rhythm. Ventricular rate 65 bpm. DC interval 166. QRS duration 94. QT/QTC 381/393. No ST elevations or depressions noted. No change from prior EKG Medical Decision Making - Medical Decision Making This 25-year-old female presents emergency Department with seizure-like activity while at work. Patient was recently diagnosed with seizure disorder one month ago. Patient does have follow-up appointment with her neurologist in July, however she stated she called the office today and they will call her back tomorrow regarding an appointment sometime this month. Vitals and labs without any acute abnormalities. Due to having a computed tomography scan brain on Sunday and patient not hitting her head during her seizure-like episode today, we did not repeat that today. Patient instructed to follow up with her primary care provider in the next 1-2 days. Patient instructed to call back her neurology office in the morning regarding an appointment sooner. Strict return precautions were discussed. Patient verbally agreed to plan. Patient sent home in stable condition. Case discussed with my attending, Dr. Ledbetter. - Lab Data Result diagrams: 06/06/21 15:49 06/06/21 15:49 Lab Results 06/06/21 06/06/21 06/06/21 Range/Units 15:49 15:49 15:49 WBC 7.3 (3.8-10.6) k/uL RBC 4.52 (3.80-5.40) m/uL Hgb 13.8 (11.4-16.0) gm/dL Hct 41.5 (34.0-46.0) % MCV 91.9 (80.0-100.0) fL MCH 30.5 (25.0-35.0) pg MCHC 33.2 (31.0-37.0) g/dL RDW 12.1 (11.5-15.5) % Plt Count 395 (150-450) k/uL MPV 8.2 Neutrophils % 62 % Lymphocytes % 30 % Monocytes % 5 % Eosinophils % 1 % Basophils % 1 % Neutrophils # 4.5 (1.3-7.7) k/uL Lymphocytes # 2.2 (1.0-4.8) k/uL Monocytes # 0.3 (0-1.0) k/uL Eosinophils # 0.1 (0-0.7) k/uL Basophils # 0.1 (0-0.2) k/uL Sodium 138 (137-145) mmol/L Potassium 4.1 (3.5-5.1) mmol/L Chloride 105 (98-107) mmol/L Carbon Dioxide 21 L (22-30) mmol/L Anion Gap 12 mmol/L BUN 13 (7-17) mg/dL Creatinine 0.76 (0.52-1.04) mg/dL Est GFR (CKD-EPI)AfAm >90 (>60 ml/min/1.73 sqM) Est GFR (CKD-EPI)NonAf >90 (>60 ml/min/1.73 sqM) Glucose 90 (74-99) mg/dL Calcium 9.7 (8.4-10.2) mg/dL Magnesium 2.2 (1.6-2.3) mg/dL Total Bilirubin 0.3 (0.2-1.3) mg/dL AST 40 H (14-36) U/L ALT 53 H (4-34) U/L Alkaline Phosphatase 66 (38-126) U/L Total Protein 7.8 (6.3-8.2) g/dL Albumin 4.6 (3.5-5.0) g/dL Urine Color Urine Appearance (Clear) Urine pH (5.0-8.0) Ur Specific [place] (1.001-1.035) Urine Protein (Negative) Urine Glucose (UA) (Negative) Urine Ketones (Negative) Urine Blood (Negative) Urine Nitrite (Negative) Urine Bilirubin (Negative) Urine Urobilinogen (<2.0) mg/dL Ur Leukocyte Esterase (Negative) Urine RBC (0-5) /hpf Urine WBC (0-5) /hpf Ur Squamous Epith Cells (0-4) /hpf Urine Bacteria (None) /hpf Urine Mucus (None) /hpf 06/06/21 Range/Units 15:49 WBC (3.8-10.6) k/uL RBC (3.80-5.40) m/uL Hgb (11.4-16.0) gm/dL Hct (34.0-46.0) % MCV (80.0-100.0) fL MCH (25.0-35.0) pg MCHC (31.0-37.0) g/dL RDW (11.5-15.5) % Plt Count (150-450) k/uL MPV Neutrophils % % Lymphocytes % % Monocytes % % Eosinophils % % Basophils % % Neutrophils # (1.3-7.7) k/uL Lymphocytes # (1.0-4.8) k/uL Monocytes # (0-1.0) k/uL Eosinophils # (0-0.7) k/uL Basophils # (0-0.2) k/uL Sodium (137-145) mmol/L Potassium (3.5-5.1) mmol/L Chloride (98-107) mmol/L Carbon Dioxide (22-30) mmol/L Anion Gap mmol/L BUN (7-17) mg/dL Creatinine (0.52-1.04) mg/dL Est GFR (CKD-EPI)AfAm (>60 ml/min/1.73 sqM) Est GFR (CKD-EPI)NonAf (>60 ml/min/1.73 sqM) Glucose (74-99) mg/dL Calcium (8.4-10.2) mg/dL Magnesium (1.6-2.3) mg/dL Total Bilirubin (0.2-1.3) mg/dL AST (14-36) U/L ALT (4-34) U/L Alkaline Phosphatase (38-126) U/L Total Protein (6.3-8.2) g/dL Albumin (3.5-5.0) g/dL Urine Color Yellow Urine Appearance Clear (Clear) Urine pH 6.5 (5.0-8.0) Ur Specific [place] 1.020 (1.001-1.035) Urine Protein Negative (Negative) Urine Glucose (UA) Negative (Negative) Urine Ketones Negative (Negative) Urine Blood Large H (Negative) Urine Nitrite Negative (Negative) Urine Bilirubin Negative (Negative) Urine Urobilinogen <2.0 (<2.0) mg/dL Ur Leukocyte Esterase Negative (Negative) Urine RBC 2 (0-5) /hpf Urine WBC 2 (0-5) /hpf Ur Squamous Epith Cells 1 (0-4) /hpf Urine Bacteria Few H (None) /hpf Urine Mucus Rare H (None) /hpf Disposition Clinical Impression: History of seizure disorder, Seizure-like activity Disposition: HOME SELF-CARE Condition: Stable Instructions (If sedation given, give patient instructions): Recurrent Seizures in Children (ED) Additional Instructions: Please call your neurologist tomorrow morning as discussed. Follow up at your neurology appointment. Follow-up with your primary care provider in next 24-48 hours. Return to the ER with any new, concerning or worsening symptoms Is patient prescribed a controlled substance at d/c from ED?: No Referrals: Nonstaff,Physician [Primary Care Provider] - 1-2 days Time of Disposition: 17:01
[2021-06-06 16:01] LABS: Basophils # (A) 0.1 k/uL (0-0.2); Basophils % (A) 1 %; Eosinophils # (A) 0.1 k/uL (0-0.7); Eosinophils % (A) 1 %; HCT 41.5 % (34.0-46.0); HGB 13.8 gm/dL (11.4-16.0); Lymphocytes # (A) 2.2 k/uL (1.0-4.8); Lymphocytes % (A) 30 %; MCH 30.5 pg (25.0-35.0); MCHC 33.2 g/dL (31.0-37.0); MCV 91.9 fL (80.0-100.0); Mean Platelet Volume 8.2; Monocytes # (A) 0.3 k/uL (0-1.0); Monocytes % (A) 5 %; Neutrophils # (A) 4.5 k/uL (1.3-7.7); Neutrophils % (A) 62 %; Platelet Count 395 k/uL (150-450); RBC 4.52 m/uL (3.80-5.40); RDW 12.1 % (11.5-15.5); WBC 7.3 k/uL (3.8-10.6)
[2021-06-06 16:06] LABS: Appearance,Urine Clear (Clear); Bacteria,Urine Few /hpf; Bilirubin,Urine Negative (Negative); Blood,Urine Large (Negative); Color,Urine Yellow; Glucose,Urine (UA) Negative (Negative); Ketones,Urine Negative (Negative); Leukocyte Esterase,Urine Negative (Negative); Mucus,Urine Rare /hpf; Nitrite,Urine Negative (Negative); PH, Urine 6.5 (5.0-8.0); Protein,Urine Negative (Negative); RBC,Urine 2 /hpf (0-5); Squamous Epithelial Cell,Urine 1 /hpf (0-4); Urobilinogen,Urine <2.0 mg/dL (<2.0); WBC,Urine 2 /hpf (0-5)
[2021-06-06 16:14] LABS: ALT 53 U/L (4-34); AST 40 U/L (14-36); African American GFR (CKD) >90 (>60 ml/min/1.73 sqM); Albumin 4.6 g/dL (3.5-5.0); Alkaline Phosphatase 66 U/L (38-126); Anion Gap 12 mmol/L; Blood Urea Nitrogen 13 mg/dL (7-17); Calcium 9.7 mg/dL (8.4-10.2); Carbon Dioxide 21 mmol/L (22-30); Chloride 105 mmol/L (98-107); Glucose 90 mg/dL (74-99); Non-African American GFR(CKD) >90 (>60 ml/min/1.73 sqM); Potassium 4.1 mmol/L (3.5-5.1); Sodium 138 mmol/L (137-145); Total Bilirubin 0.3 mg/dL (0.2-1.3); Total Protein 7.8 g/dL (6.3-8.2)
[2021-06-06 18:37] VITALS: BP 124/74; PULSE 67; RESP 16
== END 2021-06-06 18:37 | disposition home or self-care (01) ==
LOC: EC 13:40
DX: G40.909 Epilepsy, unspecified, not intractable, without status epilepticus (principal); J45.909 Unspecified asthma, uncomplicated; M79.7 Fibromyalgia; F32.A Depression, unspecified; F41.9 Anxiety disorder, unspecified; Z79.899 Other long term (current) drug therapy
CPT/HCPCS: 36415; 80053; 81001; 83735; 85025; 93005; 96360; 96361; 99284

== ENCOUNTER 2021-07-25 14:56 | Emergency (ER) | payer OTHER ==
--- NOTE | 2021-07-25 15:47 | ED ---
General Adult HPI - General Chief complaint: Seizure Stated complaint: seizure Time Seen by Provider: 07/25/21 15:10 Source: patient, EMS, RN notes reviewed, old records reviewed Mode of arrival: EMS Limitations: no limitations - History of Present Illness Initial comments: This is a 25-year-old female presents emergency department stating she has a pas t medical history significant for nonepileptic seizures. Patient states she felt one coming on today at work and she sat down in the bathroom and then started to have a seizure and she was hitting her head against the tile floor. Patient states she has a fairly significant right-sided headache. Patient denies any neck pain. Patient denies any numbness weakness. Patient denies any chest pain palpitations difficulty breathing shortness of breath per patient denies any history of fever chills or cough per patient states the seizures often brought on by anxiety and not wearing her CPAP - Related Data Home Medications Medication Instructions Recorded Confirmed Fluticasone/Salmeterol [Advair 1 puff INHALATION RT-BID 07/05/20 06/03/21 250-50 Diskus] Loratadine [Claritin] 10 mg PO HS 07/05/20 06/03/21 Midodrine [ProAmatine] 2.5 mg PO TID 11/12/20 06/03/21 busPIRone HCl [Buspar] 10 mg PO HS 03/21/21 06/03/21 DULoxetine HCL [Cymbalta] 40 mg PO HS 05/02/21 06/03/21 Fluticasone Nasal [place] [Flonase 1 spray EA NOSTRIL HS 06/03/21 06/03/21 Nasal [place]] Vienva 0.1-0.02mg Tablet 1 tab PO HS 06/03/21 06/03/21 Previous Rx's Medication Instructions Recorded Topiramate [Topamax] 25 mg PO BID #60 cap 06/04/21 Allergies Allergy/AdvReac Type Severity Reaction Status Date / Time latex Allergy Rash/Hives Verified 07/25/21 15:07 sumatriptan [From Imitrex] AdvReac dizzy Verified 07/25/21 15:07 Review of Systems ROS Statement: Those systems with pertinent positive or pertinent negative responses have been documented in the HPI. ROS Other: All systems not noted in ROS Statement are negative. Past Medical History Past Medical History: Asthma, Fibromyalgia, Seizure Disorder, Syncope Additional Past Medical History / Comment(s): ovarian cyst, neurocardogenic syncopy, gallstones History of Any Multi-Drug Resistant Organisms: C-DIFF Date of last positivie culture/infection: 09/2020 MDRO Source:: stool Past Surgical History: Cholecystectomy Additional Past Surgical History / Comment(s): wisdom teeth, dental implant, upper GI scope Past Anesthesia/Blood Transfusion Reactions: No Reported Reaction Past Psychological History: Anxiety, Depression, PTSD Smoking Status: Never smoker Past Alcohol Use History: None Reported Past Drug Use History: None Reported - Past Family History Mother Family Medical History: No Reported History General Exam - General Exam Comments Initial Comments: GENERAL: Patient is well-developed and well-nourished. Patient is nontoxic and well- hydrated and is in no acute distress. ENT: Neck is soft and supple. No significant lymphadenopathy is noted. Oropharynx is clear. Moist mucous membranes. Neck has full range of motion without eliciting any pain. EYES: The sclera were anicteric and conjunctiva were pink and moist. Extraocular movements were intact and pupils were equal round and reactive to light. Eyelids were unremarkable. PULMONARY: Unlabored respirations. Good breath sounds bilaterally. No audible rales rhonchi or wheezing was noted. CARDIOVASCULAR: There is a regular rate and rhythm without any murmurs gallops or rubs. ABDOMEN: Soft and nontender with normal bowel sounds. SKIN: Skin is clear with no lesions or rashes and otherwise unremarkable. NEUROLOGIC: Patient is alert and oriented x3. Cranial nerves II through XII are grossly intact. Motor and sensory are also intact. Normal speech, volume and content. Symmetrical smile. MUSCULOSKELETAL: Normal extremities with adequate strength and full range of motion. LYMPHATICS: No significant lymphadenopathy is noted PSYCHIATRIC: Normal psychiatric evaluation. Patient is tearful and laughing while giving the history Limitations: no limitations Course Vital Signs 07/25/21 15:07 Temperature 97 F L Pulse Rate 95 Respiratory 18 Rate Blood Pressure 136/95 O2 Sat by Pulse 98 Oximetry Medical Decision Making - Medical Decision Making CT shows no acute abnormality. Disposition Clinical Impression: Pseudoseizure Disposition: HOME SELF-CARE Condition: Good Instructions (If sedation given, give patient instructions): Recurrent Seizures in Adults (ED) Is patient prescribed a controlled substance at d/c from ED?: No Referrals: Nonstaff,Physician [Primary Care Provider] - 1-2 days Time of Disposition: 17:15
[2021-07-25] MEDS ORDERED: ACETAMINOPHEN TAB 500 MG TAB PO STA (16:11)
--- NOTE | 2021-07-25 17:23 | CT ---
EXAMINATION TYPE: CT brain wo con CT DLP: 1071.4 mGycm, Automated exposure control for dose reduction was used. DATE OF EXAM: 07/25/2021 4:42 PM COMPARISON:Prior CT Brain from 06/03/2020. CLINICAL INDICATION:Female, 25 years old with history of Seizure, TECHNIQUE: Brain: Multiple axial CT images of the brain were obtained without IV contrast. FINDINGS: Brain: Extra-axial spaces: No abnormal extra-axial fluid collections. Ventricular system: Within normal limits Cerebral parenchyma: No acute intraparenchymal hemorrhage or mass effect. The hernandez-white junction is well differentiated. Cerebellum: Unremarkable. Mass effect: No evidence of midline shift. Intracranial vasculature: unremarkable Soft tissues: Normal. Calvarium/osseous structures: No depressed skull fracture. Paranasal sinuses and mastoid air cells: Mild scattered paranasal sinus disease. Visualized orbits: Orbital contents are intact. IMPRESSION: No acute intracranial process.
[2021-07-25 17:44] VITALS: BP 127/83; PULSE 82; RESP 16; TEMP 97.6
== END 2021-07-25 17:42 | disposition home or self-care (01) ==
LOC: EC 14:56
DX: G40.909 Epilepsy, unspecified, not intractable, without status epilepticus (principal); J45.909 Unspecified asthma, uncomplicated; F32.A Depression, unspecified; F41.9 Anxiety disorder, unspecified; Z79.899 Other long term (current) drug therapy
CPT/HCPCS: 70450; 99284

== ENCOUNTER 2021-07-27 14:21 | Emergency (ER) | payer OTHER ==
--- NOTE | 2021-07-27 14:50 | ED ---
General Adult HPI - General Stated complaint: Seizure Time Seen by Provider: 07/27/21 14:26 - History of Present Illness Initial comments: Dictation was produced using [employer] dictation software. please excuse any grammatical, word or spelling errors. Chief Complaint: 25-year-old male presents to the emergency department for seizures History of Present Illness: Patient 25-year-old female who last 5 months she's been experiencing frequent seizures. Patient was seen here in emergency department 2 days ago. She was discharged at that time after expressing seizures. 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 It is recommended that she follow up with outpatient neurology to receive an EEG and MRI. Patient was brought in by EMS after having had allegedly 5 seizures today. Patient is given Versed prior to arrival by prehospital providers. The ROS documented in this emergency department record has been reviewed and confirmed by me. Those systems with pertinent positive or negative responses have been documented in the HPI. All other systems are other negative and/or noncontributory. PHYSICAL EXAM: General Impression: Alert and oriented x3, lethargic HEENT: Normocephalic atraumatic, extra-ocular movements intact, pupils equal and reactive to light bilaterally, mucous membranes moist. Cardiovascular: Heart regular rate and rhythm Chest: Able to complete full sentences, no retractions, no tachypnea Abdomen: abdomen soft, non-tender, non-distended, no organomegaly Musculoskeletal: Pulses present and equal in all extremities, no peripheral edema Motor: no focal deficits noted Neurological: CN II-XII grossly intact, no focal motor or sensory deficits noted Skin: Intact with no visualized rashes Psych: Normal affect and mood ED course: 25 y Old female with recently diagnosed psychogenic seizures presents the ER after experiencing allegedly 5 seizures today. Vital signs upon arrival are within acceptable limits. Patient states that she had full seizure workup done on outpatient basis and everything was found to be negative. She is told that she has psychogenic seizures. Laboratory evaluation obtained. Patient observed in the emergency department for 2 hours and 20 minutes she was reevaluated bedside at 4:45 PM found to be stable medical condition. Patient threw for discharge. She states she's been under a lot of stress due to a recent relationship. Patient advised follow-up with neurologist. Return precautions discussed. EKG interpretation: Ventricular rate 87, sinus rhythm, NJ interval 163, QS 99, QTc 47. No NJ prolongation, no QTC prolongation, no ST or T-wave changes noted. Overall, this EKG is unremarkable - Related Data Home Medications Medication Instructions Recorded Confirmed Fluticasone/Salmeterol [Advair 1 puff INHALATION RT-BID 07/05/20 07/27/21 250-50 Diskus] Loratadine [Claritin] 10 mg PO HS 07/05/20 07/27/21 Midodrine [ProAmatine] 2.5 mg PO TID PRN 11/12/20 07/27/21 busPIRone HCl [Buspar] 10 mg PO HS 03/21/21 07/27/21 DULoxetine HCL [Cymbalta] 40 mg PO HS 05/02/21 07/27/21 Fluticasone Nasal [place] [Flonase 1 spray EA NOSTRIL HS 06/03/21 07/27/21 Nasal [place]] Vienva 0.1-0.02mg Tablet 1 tab PO HS 06/03/21 07/27/21 Albuterol Inhaler [Ventolin Hfa 2 puff INHALATION RT-QID PRN 07/25/21 07/27/21 Inhaler] Allergies Allergy/AdvReac Type Severity Reaction Status Date / Time latex Allergy Rash/Hives Verified 07/27/21 15:03 sumatriptan [From Imitrex] AdvReac dizzy Verified 07/27/21 15:03 Review of Systems ROS Statement: Those systems with pertinent positive or pertinent negative responses have been documented in the HPI. ROS Other: All systems not noted in ROS Statement are negative. Past Medical History Past Medical History: Asthma, Fibromyalgia, Seizure Disorder, Syncope Additional Past Medical History / Comment(s): ovarian cyst, neurocardogenic syncopy, gallstones History of Any Multi-Drug Resistant Organisms: C-DIFF Date of last positivie culture/infection: 09/2020 MDRO Source:: stool Past Surgical History: Cholecystectomy Additional Past Surgical History / Comment(s): wisdom teeth, dental implant, upper GI scope Past Anesthesia/Blood Transfusion Reactions: No Reported Reaction Past Psychological History: Anxiety, Depression, PTSD Smoking Status: Never smoker Past Alcohol Use History: None Reported Past Drug Use History: None Reported - Past Family History Mother Family Medical History: No Reported History Course Vital Signs 07/27/21 14:23 Temperature 98.1 F Pulse Rate 80 Respiratory 18 Rate Blood Pressure 118/79 O2 Sat by Pulse 99 Oximetry Medical Decision Making - Lab Data Result diagrams: 07/27/21 14:40 07/27/21 14:40 Lab Results 07/27/21 07/27/21 07/27/21 Range/Units 14:40 14:40 14:40 WBC 6.0 (3.8-10.6) k/uL RBC 4.13 (3.80-5.40) m/uL Hgb 12.7 (11.4-16.0) gm/dL Hct 37.4 (34.0-46.0) % MCV 90.5 (80.0-100.0) fL MCH 30.7 (25.0-35.0) pg MCHC 33.9 (31.0-37.0) g/dL RDW 13.0 (11.5-15.5) % Plt Count 452 H (150-450) k/uL MPV 7.0 Neutrophils % 59 % Lymphocytes % 31 % Monocytes % 4 % Eosinophils % 3 % Basophils % 1 % Neutrophils # 3.6 (1.3-7.7) k/uL Lymphocytes # 1.8 (1.0-4.8) k/uL Monocytes # 0.2 (0-1.0) k/uL Eosinophils # 0.2 (0-0.7) k/uL Basophils # 0.1 (0-0.2) k/uL Sodium 136 L (137-145) mmol/L Potassium 4.3 (3.5-5.1) mmol/L Chloride 103 (98-107) mmol/L Carbon Dioxide 25 (22-30) mmol/L Anion Gap 8 mmol/L BUN 11 (7-17) mg/dL Creatinine 0.59 (0.52-1.04) mg/dL Est GFR (CKD-EPI)AfAm >90 (>60 ml/min/1.73 sqM) Est GFR (CKD-EPI)NonAf >90 (>60 ml/min/1.73 sqM) Glucose 94 (74-99) mg/dL Calcium 9.8 (8.4-10.2) mg/dL Magnesium 2.1 (1.6-2.3) mg/dL Urine HCG, Qual Not Detected (Not Detectd) Disposition Clinical Impression: Seizure Disposition: HOME SELF-CARE Condition: Good Instructions (If sedation given, give patient instructions): Recurrent Seizures in Adults (ED) Is patient prescribed a controlled substance at d/c from ED?: No Referrals: Nonstaff,Physician [Primary Care Provider] - 1-2 days
[2021-07-27 15:08] LABS: Basophils # (A) 0.1 k/uL (0-0.2); Basophils % (A) 1 %; Eosinophils # (A) 0.2 k/uL (0-0.7); Eosinophils % (A) 3 %; HCT 37.4 % (34.0-46.0); HGB 12.7 gm/dL (11.4-16.0); Lymphocytes # (A) 1.8 k/uL (1.0-4.8); Lymphocytes % (A) 31 %; MCH 30.7 pg (25.0-35.0); MCHC 33.9 g/dL (31.0-37.0); MCV 90.5 fL (80.0-100.0); Monocytes # (A) 0.2 k/uL (0-1.0); Monocytes % (A) 4 %; Neutrophils # (A) 3.6 k/uL (1.3-7.7); Neutrophils % (A) 59 %; Platelet Count 452 k/uL (150-450); RBC 4.13 m/uL (3.80-5.40)
[2021-07-27 15:14] LABS: African American GFR (CKD) >90 (>60 ml/min/1.73 sqM); Anion Gap 8 mmol/L; Blood Urea Nitrogen 11 mg/dL (7-17); Calcium 9.8 mg/dL (8.4-10.2); Carbon Dioxide 25 mmol/L (22-30); Chloride 103 mmol/L (98-107); Glucose 94 mg/dL (74-99); Non-African American GFR(CKD) >90 (>60 ml/min/1.73 sqM); Sodium 136 mmol/L (137-145)
[2021-07-27 15:21] LABS: Magnesium 2.1 mg/dL (1.6-2.3); Potassium 4.3 mmol/L (3.5-5.1)
[2021-07-27 17:06] VITALS: BP 115/83; PULSE 86; RESP 16; TEMP 98
== END 2021-07-27 17:05 | disposition home or self-care (01) ==
LOC: EC 14:21
DX: G40.89 Other seizures (principal); J45.909 Unspecified asthma, uncomplicated; M79.7 Fibromyalgia; F41.9 Anxiety disorder, unspecified; F43.10 Post-traumatic stress disorder, unspecified; F32.A Depression, unspecified; Z91.040 Latex allergy status; Z90.49 Acquired absence of other specified parts of digestive tract
CPT/HCPCS: 36415; 80048; 81025; 83735; 85025; 93005; 99285

== ENCOUNTER 2021-09-30 16:36 | Emergency (ER) | payer OTHER ==
[2021-09-30 16:51] VITALS: BP 116/80; PULSE 107; RESP 16; TEMP 97.6
--- NOTE | 2021-09-30 17:05 | ED ---
General Adult HPI - General Chief complaint: Headache Stated complaint: migraine Time Seen by Provider: 09/30/21 16:38 Source: patient, EMS, RN notes reviewed, old records reviewed Mode of arrival: EMS Limitations: no limitations - History of Present Illness Initial comments: 25-year-old female history of migraine headache presenting with generalized he adache. She states that she's had a headache throughout the day today but approximately 30 minutes prior to arrival the patient had more her nose and had an acute worsening of her headache. She describes this as severe. She has no previous history of intracranial abnormality. She does have history of migraine headache. She denies focal weakness. Headache severity increased suddenly about 20 minutes prior to arrival. - Related Data Home Medications Medication Instructions Recorded Confirmed Fluticasone Propion/Salmeterol 1 puff INHALATION RT-BID 07/05/20 07/27/21 [Advair 250-50 Diskus] Loratadine [Claritin] 10 mg PO HS 07/05/20 07/27/21 Midodrine [ProAmatine] 2.5 mg PO TID PRN 11/12/20 07/27/21 busPIRone HCl [Buspar] 10 mg PO HS 03/21/21 07/27/21 DULoxetine HCL [Cymbalta] 40 mg PO HS 05/02/21 07/27/21 Fluticasone Nasal [place] [Flonase 1 spray EA NOSTRIL HS 06/03/21 07/27/21 Nasal [place]] Vienva 0.1-0.02mg Tablet 1 tab PO HS 06/03/21 07/27/21 Albuterol Inhaler [Ventolin Hfa 2 puff INHALATION RT-QID PRN 07/25/21 07/27/21 Inhaler] Allergies Allergy/AdvReac Type Severity Reaction Status Date / Time latex Allergy Rash/Hives Verified 08/04/21 15:51 sumatriptan [From Imitrex] AdvReac dizzy Verified 08/04/21 15:51 Review of Systems ROS Statement: Those systems with pertinent positive or pertinent negative responses have been documented in the HPI. ROS Other: All systems not noted in ROS Statement are negative. Past Medical History Past Medical History: Asthma, Fibromyalgia, Seizure Disorder, Syncope Additional Past Medical History / Comment(s): ovarian cyst, neurocardogenic syncopy, gallstones History of Any Multi-Drug Resistant Organisms: C-DIFF Date of last positivie culture/infection: 09/2020 MDRO Source:: stool Past Surgical History: Cholecystectomy Additional Past Surgical History / Comment(s): wisdom teeth, dental implant, upper GI scope Past Anesthesia/Blood Transfusion Reactions: No Reported Reaction Past Psychological History: Anxiety, Depression, PTSD Smoking Status: Never smoker Past Alcohol Use History: None Reported Past Drug Use History: None Reported - Past Family History Mother Family Medical History: No Reported History General Exam Limitations: no limitations General appearance: alert, in no apparent distress Head exam: Present: atraumatic Eye exam: Present: normal appearance. Absent: PERRL ENT exam: Present: normal exam Neck exam: Present: normal inspection. Absent: tenderness, meningismus Respiratory exam: Present: normal lung sounds bilaterally. Absent: respiratory distress, wheezes Cardiovascular Exam: Present: regular rate, normal rhythm GI/Abdominal exam: Present: soft. Absent: distended, tenderness, guarding Extremities exam: Present: normal inspection, normal capillary refill. Absent: pedal edema Neurological exam: Present: alert, oriented X3, CN II-XII intact. Absent: motor sensory deficit Psychiatric exam: Present: normal affect, normal mood Skin exam: Present: warm, dry, intact. Absent: cyanosis, diaphoretic Course Vital Signs 09/30/21 16:44 Temperature 97.6 F Pulse Rate 107 H Respiratory 16 Rate Blood Pressure 116/80 O2 Sat by Pulse 96 Oximetry Medical Decision Making - Medical Decision Making 45-year-old female with migraine headache history with relative sudden onset headache. There was concern for scleral hemorrhage, subarachnoid hemorrhage, CT was performed immediately upon arrival. This was within one hour of the onset of headache. This is negative for intracranial hemorrhage. Patient well- appearing she has a nonfocal neurologic exam. She is she is able to give a detailed history and states that her headache is similar in character to her normal migraine headaches although somewhat more severe. She's been prescribed a preventative medication by her neurologist but this was not able to be filled by the pharmacy because he was out of stock. She does have good outpatient follow-up. She is able to follow up as an outpatient and return as needed with worsening or changing symptoms. Disposition Clinical Impression: Headache Disposition: HOME SELF-CARE Condition: Good Instructions (If sedation given, give patient instructions): Acute Headache (ED) Additional Instructions: Please follow up with her primary care physician and neurologist and return with worsening or changing symptoms. Is patient prescribed a controlled substance at d/c from ED?: No Referrals: Nonstaff,Physician [Primary Care Provider] - 1-2 days Time of Disposition: 17:35
[2021-09-30] MEDS ORDERED: diphenhydrAMINE 25 MG CAP PO STA (17:20)
[2021-09-30] MEDS ORDERED: HYDROmorphone 1 MG/ML 1 ML SYRINGE IM STA (17:20)
--- NOTE | 2021-09-30 17:28 | CT ---
EXAMINATION TYPE: CT brain wo con DATE OF EXAM: 09/30/2021 COMPARISON: 07/25/2021 HISTORY: Headache CT DLP: mGycm Automated exposure control for dose reduction was used. Exam performed with no contrast. Ventricles and sulci appear normal. There is no mass effect or midline shift. No sign of intracranial hemorrhage. There is normal aeration of the mastoid sinuses. Sella turcica appears normal. IMPRESSION: Normal unenhanced head CT scan. No change.
== END 2021-09-30 17:55 | disposition home or self-care (01) ==
LOC: EC 16:36
DX: R51.9 Headache, unspecified (principal); J45.909 Unspecified asthma, uncomplicated; Z88.8 Allergy status to other drugs, medicaments and biological substances; Z91.040 Latex allergy status; Z79.899 Other long term (current) drug therapy; Z79.51 Long term (current) use of inhaled steroids; Z86.69 Personal history of other diseases of the nervous system and sense organs
CPT/HCPCS: 70450; 99284; 96372; J1170

== ENCOUNTER 2021-10-01 22:49 | Emergency (ER) | payer OTHER ==
[2021-10-01 23:04] VITALS: TEMP 98.4
[2021-10-02] MEDS ORDERED: diphenhydrAMINE 50 MG/ML 1 ML VIAL IVP STA (00:35)
[2021-10-02] MEDS ORDERED: methylPREDNISolone SOD SUCCI 125 MG/2 ML VIAL IV STA (00:35)
[2021-10-02] MEDS ORDERED: METOCLOPRAMIDE 5 MG/ML 2 ML VIAL IVP STA (00:35)
--- NOTE | 2021-10-02 00:38 | ED ---
Headache HPI - General Chief Complaint: Headache Stated Complaint: Headache Time Seen by Provider: 10/01/21 23:59 Mode of arrival: EMS Limitations: no limitations - History of Present Illness MD Complaint: headache -: days(s) Onset Description: gradual, at rest Location: diffuse Severity: severe Quality: aching Consistency: constant Improves With: nothing Worsens With: light, noise Context: occurred at rest Associated Symptoms: photophobia, sensitivity to sound Treatments Prior to Arrival: other - Related Data Home Medications Medication Instructions Recorded Confirmed Fluticasone Propion/Salmeterol 1 puff INHALATION RT-BID 07/05/20 07/27/21 [Advair 250-50 Diskus] Loratadine [Claritin] 10 mg PO HS 07/05/20 07/27/21 Midodrine [ProAmatine] 2.5 mg PO TID PRN 11/12/20 07/27/21 busPIRone HCl [Buspar] 10 mg PO HS 03/21/21 07/27/21 DULoxetine HCL [Cymbalta] 40 mg PO HS 05/02/21 07/27/21 Fluticasone Nasal [place] [Flonase 1 spray EA NOSTRIL HS 06/03/21 07/27/21 Nasal [place]] Vienva 0.1-0.02mg Tablet 1 tab PO HS 06/03/21 07/27/21 Albuterol Inhaler [Ventolin Hfa 2 puff INHALATION RT-QID PRN 07/25/21 07/27/21 Inhaler] Allergies Allergy/AdvReac Type Severity Reaction Status Date / Time latex Allergy Rash/Hives Verified 10/01/21 23:00 sumatriptan [From Imitrex] AdvReac dizzy Verified 10/01/21 23:00 Review of Systems ROS Statement: Those systems with pertinent positive or pertinent negative responses have been documented in the HPI. ROS Other: All systems not noted in ROS Statement are negative. Constitutional: Denies: fever, chills ENT: Denies: ear pain, congestion Respiratory: Denies: cough, dyspnea Cardiovascular: Denies: chest pain, syncope Gastrointestinal: Reports: nausea. Denies: abdominal pain, vomiting Musculoskeletal: Denies: back pain Skin: Denies: rash Neurological: Reports: headache. Denies: weakness, numbness, confusion Past Medical History Past Medical History: Asthma, Fibromyalgia, Seizure Disorder, Syncope Additional Past Medical History / Comment(s): ovarian cyst, neurocardogenic syncopy, gallstones History of Any Multi-Drug Resistant Organisms: C-DIFF Date of last positivie culture/infection: 09/2020 MDRO Source:: stool Past Surgical History: Cholecystectomy Additional Past Surgical History / Comment(s): wisdom teeth, dental implant, upper GI scope Past Anesthesia/Blood Transfusion Reactions: No Reported Reaction Past Psychological History: Anxiety, Depression, PTSD Smoking Status: Never smoker Past Alcohol Use History: None Reported Past Drug Use History: None Reported - Past Family History Mother Family Medical History: No Reported History General Exam Limitations: no limitations General appearance: alert, in no apparent distress Head exam: Present: atraumatic, normocephalic Eye exam: Present: normal appearance, PERRL, EOMI. Absent: scleral icterus, conjunctival injection, nystagmus ENT exam: Present: normal oropharynx, mucous membranes moist Neck exam: Present: normal inspection, full ROM Respiratory exam: Present: normal lung sounds bilaterally. Absent: respiratory distress, wheezes, rales, rhonchi, stridor Cardiovascular Exam: Present: regular rate, normal rhythm, normal heart sounds. Absent: systolic murmur, diastolic murmur, rubs, gallop Neurological exam: Present: alert, oriented X3, CN II-XII intact. Absent: motor sensory deficit Psychiatric exam: Present: normal affect Skin exam: Present: warm, dry, intact, normal color. Absent: rash Course Vital Signs 10/01/21 23:00 Temperature 98.4 F Pulse Rate 112 H Respiratory 24 Rate Blood Pressure 124/82 O2 Sat by Pulse 97 Oximetry Disposition Clinical Impression: Headache Disposition: HOME SELF-CARE Condition: Good Instructions (If sedation given, give patient instructions): Acute Headache (ED) Is patient prescribed a controlled substance at d/c from ED?: No Referrals: None,Stated [Primary Care Provider] - 1-2 days Time of Disposition: 02:35
--- NOTE | 2021-10-02 01:02 | CT ---
EXAM: CT Head Without Intravenous Contrast CLINICAL HISTORY: ITS.REASON CT Reason: headache TECHNIQUE: Axial computed tomography images of the head/brain without intravenous contrast. CTDI is 49.2 mGy and DLP is 1204.4 mGy-cm. This CT exam was performed using one or more of the following dose reduction techniques: automated exposure control, adjustment of the mA and/or kV according to patient size, and/or use of iterative reconstruction technique. COMPARISON: 09/30/2021. FINDINGS: Brain: No abnormal extra-axial collection is noted. No hemorrhage. No significant white matter disease. Midline shift: Midline anatomy is unremarkable. Ventricles: The ventricular system is age appropriate. Bones/joints: Calvarium is within normal limits. No acute fracture. Soft tissues: Unremarkable. Sinuses: Visualized sinuses are unremarkable. Mastoid air cells: Mastoid air cells are well pneumatized. IMPRESSION: 1. No acute intracranial pathology is noted. 2. If there is concern for etiology such as early acute lacunar infarcts, MRI imaging of the brain with diffusion-weighted sequences should be performed.
[2021-10-02 03:01] VITALS: BP 108/86; PULSE 70; RESP 16
== END 2021-10-02 02:59 | disposition home or self-care (01) ==
LOC: EC 22:49
DX: R51.9 Headache, unspecified (principal); J45.909 Unspecified asthma, uncomplicated; Z91.040 Latex allergy status; Z88.9 Allergy status to unspecified drugs, medicaments and biological substances
CPT/HCPCS: 70450; 99284; 96374; 96375; J1200; J2765; J2930

== ENCOUNTER 2022-02-20 07:49 | Emergency (ER) | payer OTHER ==
--- NOTE | 2022-02-20 08:16 | ED ---
Abdominal Pain HPI - General Chief Complaint: Abdominal Pain Stated Complaint: Kidney pain Time Seen by Provider: 02/20/22 07:59 Source: patient, RN notes reviewed Mode of arrival: ambulatory Limitations: no limitations - History of Present Illness Initial Comments: Patient is a 26 year old female presenting to the ER with a chief complaint of bilateral flank pain. Patient states this first started this morning while she was in the shower. She describes it as a sharp pain to where she had to sit down until it subsided. Patient reports she just finished her last menstrual cycle and denies any chance of . Patient denies pain/ numbness/tingling in her legs. Denies fevers, chills, nausea, vomiting, change in bowel habits, complains of freq and dysuria. - Related Data Home Medications Medication Instructions Recorded Confirmed Fluticasone Propion/Salmeterol 1 puff INHALATION RT-BID 07/05/20 07/27/21 [Advair 250-50 Diskus] Loratadine [Claritin] 10 mg PO HS 07/05/20 07/27/21 Midodrine [ProAmatine] 2.5 mg PO TID PRN 11/12/20 07/27/21 busPIRone HCl [Buspar] 10 mg PO HS 03/21/21 07/27/21 DULoxetine HCL [Cymbalta] 40 mg PO HS 05/02/21 07/27/21 Fluticasone Nasal [place] [Flonase 1 spray EA NOSTRIL HS 06/03/21 07/27/21 Nasal [place]] Vienva 0.1-0.02mg Tablet 1 tab PO HS 06/03/21 07/27/21 Albuterol Inhaler [Ventolin Hfa 2 puff INHALATION RT-QID PRN 07/25/21 07/27/21 Inhaler] Previous Rx's Medication Instructions Recorded Cephalexin [Keflex] 500 mg PO Q8HR #21 cap 02/20/22 Ibuprofen [Motrin] 600 mg PO Q8HR PRN #20 tab 02/20/22 Phenazopyridine [Pyridium] 200 mg PO TID #6 tablet 02/20/22 Allergies Allergy/AdvReac Type Severity Reaction Status Date / Time latex Allergy Rash/Hives Verified 02/20/22 07:57 sumatriptan [From Imitrex] AdvReac dizzy Verified 02/20/22 07:57 Review of Systems ROS Statement: Those systems with pertinent positive or pertinent negative responses have been documented in the HPI. ROS Other: All systems not noted in ROS Statement are negative. Past Medical History Past Medical History: Asthma, Fibromyalgia, Seizure Disorder, Syncope Additional Past Medical History / Comment(s): ovarian cyst, neurocardogenic syncopy, gallstones History of Any Multi-Drug Resistant Organisms: C-DIFF Date of last positivie culture/infection: 09/2020 MDRO Source:: stool Past Surgical History: Cholecystectomy Additional Past Surgical History / Comment(s): wisdom teeth, dental implant, upper GI scope Past Anesthesia/Blood Transfusion Reactions: No Reported Reaction Past Psychological History: Anxiety, Depression, PTSD Smoking Status: Never smoker Past Alcohol Use History: None Reported Past Drug Use History: None Reported - Past Family History Mother Family Medical History: No Reported History General Exam Limitations: no limitations General appearance: alert, in no apparent distress Neck exam: Present: normal inspection. Absent: tenderness, meningismus, lymphadenopathy Respiratory exam: Present: normal lung sounds bilaterally. Absent: respiratory distress, wheezes, rales, rhonchi, stridor Cardiovascular Exam: Present: regular rate, normal rhythm, normal heart sounds. Absent: systolic murmur, diastolic murmur, rubs, gallop, clicks GI/Abdominal exam: Present: soft, tenderness (LUQ/LLQ tenderness to palpation ), normal bowel sounds. Absent: distended, guarding, rebound, rigid Extremities exam: Present: normal inspection, full ROM, normal capillary refill. Absent: tenderness, pedal edema, joint swelling, calf tenderness Back exam: Present: normal inspection, full ROM, tenderness (tender lumbar spine ) Neurological exam: Present: alert, oriented X3, CN II-XII intact Psychiatric exam: Present: normal affect, normal mood Skin exam: Present: warm, dry, intact, normal color. Absent: rash Course Vital Signs 02/20/22 07:55 Temperature 98.6 F Pulse Rate 106 H Respiratory 22 Rate Blood Pressure 117/78 O2 Sat by Pulse 99 Oximetry Medical Decision Making - Medical Decision Making 26-year-old presented for flank pain. Patient does have some mild urinary symptoms. Patient urinalysis showed minimal bacteria and small amount of blood. Patient was started on Imitrex pending urine culture. Patient we discharged in stable condition return parameters were discussed patient agrees to plan. - Lab Data Lab Results 02/20/22 02/20/22 Range/Units 08:23 08:23 Urine Color Yellow Urine Appearance Cloudy H (Clear) Urine pH 6.0 (5.0-8.0) Ur Specific [place] 1.041 H (1.001-1.035) Urine Protein 1+ H (Negative) Urine Glucose (UA) Negative (Negative) Urine Ketones Trace H (Negative) Urine Blood Trace H (Negative) Urine Nitrite Negative (Negative) Urine Bilirubin Negative (Negative) Urine Urobilinogen <2.0 (<2.0) mg/dL Ur Leukocyte Esterase Small H (Negative) Urine RBC <1 (0-5) /hpf Urine WBC 7 H (0-5) /hpf Ur Squamous Epith Cells 8 H (0-4) /hpf Urine Bacteria Rare H (None) /hpf Urine Mucus Many H (None) /hpf Urine HCG, Qual Not Detected (Not Detectd) Disposition Clinical Impression: UTI (urinary tract infection) Disposition: HOME SELF-CARE Condition: Stable Instructions (If sedation given, give patient instructions): Urinary Tract Infection in Women (ED) Additional Instructions: Please return to the Emergency Department if symptoms worsen or any other concerns. Prescriptions: Cephalexin [Keflex] 500 mg PO Q8HR #21 cap Ibuprofen [Motrin] 600 mg PO Q8HR PRN #20 tab PRN Reason: Pain Phenazopyridine [Pyridium] 200 mg PO TID #6 tablet Is patient prescribed a controlled substance at d/c from ED?: No Referrals: Nonstaff,Physician [Primary Care Provider] - 1-2 days Time of Disposition: 09:05
[2022-02-20 08:48] LABS: Appearance,Urine Cloudy (Clear); Bacteria,Urine Rare /hpf; Bilirubin,Urine Negative (Negative); Blood,Urine Trace (Negative); Color,Urine Yellow; Glucose,Urine (UA) Negative (Negative); Ketones,Urine Trace (Negative); Leukocyte Esterase,Urine Small (Negative); Mucus,Urine Many /hpf; Nitrite,Urine Negative (Negative); Protein,Urine 1+ (Negative); RBC,Urine <1 /hpf (0-5); Specific Gravity,Urine 1.041 (1.001-1.035); Squamous Epithelial Cell,Urine 8 /hpf (0-4); Urobilinogen,Urine <2.0 mg/dL (<2.0); WBC,Urine 7 /hpf (0-5)
[2022-02-20] MEDS ORDERED: IBUPROFEN 600 MG TAB PO STA (09:03)
[2022-02-20 09:28] VITALS: BP 115/84; PULSE 97; RESP 18; TEMP 97.8
== END 2022-02-20 09:29 | disposition home or self-care (01) ==
LOC: EC 07:49
DX: N39.0 Urinary tract infection, site not specified (principal); J45.909 Unspecified asthma, uncomplicated; F41.9 Anxiety disorder, unspecified; F32.A Depression, unspecified; Z91.040 Latex allergy status; Z88.8 Allergy status to other drugs, medicaments and biological substances; Z79.51 Long term (current) use of inhaled steroids; Z79.899 Other long term (current) drug therapy
CPT/HCPCS: 81001; 81025; 99284

== ENCOUNTER 2022-04-18 09:46 | Emergency (ER) | payer OTHER ==
[2022-04-18 09:56] VITALS: RESP 18; TEMP 97.5
[2022-04-18] MEDS ORDERED: SODIUM CHLORIDE 0.9% 1,000 ML IV ONE (10:08)
[2022-04-18 10:13] LABS: Glucose,Whole Blood 108 mg/dL (70-110)
--- NOTE | 2022-04-18 10:39 | ED ---
General Adult HPI - General Chief complaint: Syncope Stated complaint: seizure, chest discomfort Time Seen by Provider: 04/18/22 10:07 Source: patient Mode of arrival: EMS Limitations: no limitations - History of Present Illness Initial comments: 26 year female presents to the emergency department for syncope. She reports she was working croutched down and put files into a cabinet when she stood up, and felt dizzy, and sat in a chair then passed out. She reports the LOC lasted about 1 minute, she denies having a post-ictal state or loss of bladder function. She denies hitting her head of anticoagulant use. She complains of a headache. Denies vision loss, vision changes, lightheadedness, chest pain, palpitations, shortness of breath. Denies cardiac history. She does report having syncopal episodes in the past and seizures, however she denies taking anti-seizure medications. - Related Data Home Medications Medication Instructions Recorded Confirmed Fluticasone Propion/Salmeterol 1 puff INHALATION RT-BID 07/05/20 04/18/22 [Advair 250-50 Diskus] Midodrine [ProAmatine] 2.5 mg PO TID 11/12/20 04/18/22 busPIRone HCl [Buspar] 10 mg PO HS 03/21/21 04/18/22 DULoxetine HCL [Cymbalta] 20 mg PO HS 05/02/21 04/18/22 Vienva 0.1-0.02mg Tablet 1 tab PO HS 06/03/21 04/18/22 Albuterol Inhaler [Ventolin Hfa 2 puff INHALATION RT-Q4H PRN 07/25/21 04/18/22 Inhaler] DULoxetine HCL [Cymbalta] 60 mg PO HS 04/18/22 04/18/22 Rimegepant Sulfate [Nurtec Odt] 75 mg PO Q2D@2100 04/18/22 04/18/22 diphenhydrAMINE HCL [Benadryl] 25 mg PO HS 04/18/22 04/18/22 Allergies Allergy/AdvReac Type Severity Reaction Status Date / Time latex Allergy Rash/Hives Verified 04/18/22 12:04 strawberry Allergy Rash/Hives Verified 04/18/22 12:04 sumatriptan [From Imitrex] Allergy Rash/Hives Verified 04/18/22 12:04 Review of Systems ROS Statement: Those systems with pertinent positive or pertinent negative responses have been documented in the HPI. ROS Other: All systems not noted in ROS Statement are negative. Past Medical History Past Medical History: Asthma, Fibromyalgia, Seizure Disorder, Syncope Additional Past Medical History / Comment(s): ovarian cyst, neurocardogenic syncopy, gallstones History of Any Multi-Drug Resistant Organisms: C-DIFF Date of last positivie culture/infection: 09/2020 MDRO Source:: stool Past Surgical History: Cholecystectomy Additional Past Surgical History / Comment(s): wisdom teeth, dental implant, upper GI scope Past Anesthesia/Blood Transfusion Reactions: No Reported Reaction Past Psychological History: Anxiety, Depression, PTSD Smoking Status: Never smoker Past Alcohol Use History: None Reported Past Drug Use History: None Reported - Past Family History Mother Family Medical History: No Reported History General Exam Limitations: no limitations General appearance: alert, in no apparent distress Head exam: Present: atraumatic, normocephalic, normal inspection Eye exam: Present: normal appearance, PERRL, EOMI. Absent: scleral icterus, conjunctival injection, periorbital swelling ENT exam: Present: normal exam, mucous membranes moist Neck exam: Present: normal inspection. Absent: tenderness, meningismus, lymphadenopathy Respiratory exam: Present: normal lung sounds bilaterally. Absent: respiratory distress, wheezes, rales, rhonchi, stridor Cardiovascular Exam: Present: regular rate, normal rhythm, normal heart sounds. Absent: systolic murmur, diastolic murmur, rubs, gallop, clicks GI/Abdominal exam: Present: soft, normal bowel sounds. Absent: distended, tenderness, guarding, rebound, rigid Extremities exam: Present: normal inspection, full ROM, normal capillary refill. Absent: tenderness, pedal edema, joint swelling, calf tenderness Back exam: Present: normal inspection Neurological exam: Present: alert, oriented X3, CN II-XII intact Psychiatric exam: Present: normal affect, normal mood Skin exam: Present: warm, dry, intact, normal color. Absent: rash Course Vital Signs 04/18/22 04/18/22 09:49 12:38 Temperature 97.5 F L Pulse Rate 100 84 Respiratory 18 18 Rate Blood Pressure 121/79 134/87 O2 Sat by Pulse 98 96 Oximetry EKG Findings - EKG Comments: EKG Findings:: I interpreted the following: EKG performed 10:01. Rate 87 bpm, NSR, AK 167, QRS 102, Qt/Qtc 344/389 Medical Decision Making - Medical Decision Making Was pt. sent in by a medical professional or institution (RE Jacob, ROBOTIC MAINTENANCE TECHNICIAN, urgent care, hospital, or fpc...) When possible be specific @ -[No] Did you speak to anyone other than the patient for history (EMS, parent, family, police, friend...)? What history was obtained from this source @ -[No] Did you review nursing and triage notes (agree or disagree)? Why? @ -[I reviewed and agree with nursing and triage notes] Were old charts reviewed (outside hosp., previous admission, EMS record, old EKG, old radiological studies, urgent care reports/EKG's, fpc records)? Report findings @ -[No old charts were reviewed] Differential Diagnosis (chest pain, altered mental status, abdominal pain women, abdominal pain men, vaginal bleeding, weakness, fever, dyspnea, syncope, headache, dizziness, GI bleed, back pain, seizure, CVA, palpatations, mental health)? @ -[not applicable] EKG interpreted by me (3pts min.). @ -[As above] X-rays interpreted by me (1pt min.). @ -negative for acute process CT interpreted by me (1pt min.). @ -[None done] U/S interpreted by me (1pt. min.). @ -[None done] What testing was considered but not performed or refused? (CT, X-rays, U/S, labs)? Why? @ -[None] What meds were considered but not given or refused? Why? @ -[None] Did you discuss the management of the patient with other professionals (duran colon i.e. RE Jacob, ROBOTIC MAINTENANCE TECHNICIAN, lab, RT, psych nurse, social service worker, steam and power supervisor, teacher, supervisor dog license officer, dependency case manager)? Give summary @ -[No] Was smoking cessation discussed for >3mins.? @ -[No] Was critical care preformed (if so, how long)? @ -[No] Were there social determinants of health that impacted care today? How? (Homelessness, low income, unemployed, alcoholism, drug addiction, transport ation, low edu. Level, literacy, decrease access to med. care, residential, rehab)? @ -[No] Was there de-escalation of care discussed even if they declined (Discuss DNR or withdrawal of care, Hospice)? DNR status @ -[No] What co-morbidities impacted this encounter? (DM, HTN, Smoking, COPD, CAD, Cancer, CVA, ARF, Chemo, Hep., AIDS, mental health diagnosis, sleep apnea, morbid obesity)? @ -[None] Was patient admitted / discharged? Hospital course, mention meds given and route, prescriptions, significant lab abnormalities, going to OR and other pertinent info. @ -26-year-old female presents to the emergency department with syncopal episode. Patient had a history and a physical, : Exam is essentially unremarkable, no neurological deficits. Patient seen multiple times walking to restroom and is able to ambulate with a steady gate. I discussed the results in detail with the patient, questions and comments were addressed. SHe was given Tylenol and 1liter if fluids with symptomatic improvement while in the emergency department. shee is agreeable with the plan for discharge. with recommended follow up with PCP in 1-2 days. I discussed the case with Dr. Kellie CORTES who agrees with the plan of care. Patient discharged in stable condition. Undiagnosed new problem with uncertain prognosis? @ -[No] Drug Therapy requiring intensive monitoring for toxicity (Heparin, Nitro, Insulin, Cardizem)? @ -[No] Were any procedures done? @ -[No] Diagnosis/symptom? @ -[default] Acute, or Chronic, or Acute on Chronic? @ -[default] Uncomplicated (without systemic symptoms) or Complicated (systemic symptoms)? @ -[default] Side effects of treatment? @ -[No] Exacerbation, Progression, or Severe Exacerbation? @ -[No] Poses a threat to life or bodily function? How? (Chest pain, [place], [place], pneumonia, PE, COPD, DKA, ARF, appy, cholecystitis, CVA, Diverticulitis, Homicidal, Suicidal, threat to staff... and all critical care pts) @ -[No] - Lab Data Result diagrams: 04/18/22 10:35 04/18/22 10:35 Lab Results 04/18/22 04/18/22 04/18/22 Range/Units 10:10 10:35 10:35 WBC 5.9 (3.8-10.6) k/uL RBC 4.25 (3.80-5.40) m/uL Hgb 13.2 (11.4-16.0) gm/dL Hct 38.3 (34.0-46.0) % MCV 90.2 (80.0-100.0) fL MCH 31.1 (25.0-35.0) pg MCHC 34.5 (31.0-37.0) g/dL RDW 11.9 (11.5-15.5) % Plt Count 382 (150-450) k/uL MPV 7.6 Neutrophils % 59 % Lymphocytes % 29 % Monocytes % 6 % Eosinophils % 3 % Basophils % 1 % Neutrophils # 3.5 (1.3-7.7) k/uL Lymphocytes # 1.7 (1.0-4.8) k/uL Monocytes # 0.4 (0-1.0) k/uL Eosinophils # 0.2 (0-0.7) k/uL Basophils # 0.1 (0-0.2) k/uL PT 9.9 (9.0-12.0) sec INR 0.9 (<1.2) APTT 26.9 (22.0-30.0) sec Sodium (137-145) mmol/L Potassium (3.5-5.1) mmol/L Chloride (98-107) mmol/L Carbon Dioxide (22-30) mmol/L Anion Gap mmol/L BUN (7-17) mg/dL Creatinine (0.52-1.04) mg/dL Est GFR (CKD-EPI)AfAm (>60 ml/min/1.73 sqM) Est GFR (CKD-EPI)NonAf (>60 ml/min/1.73 sqM) Glucose (74-99) mg/dL POC Glucose (mg/dL) 108 (70-110) mg/dL POC Glu Complaint Clerk ID Abdulla, Nissma Calcium (8.4-10.2) mg/dL Total Bilirubin (0.2-1.3) mg/dL AST (14-36) U/L ALT (4-34) U/L Alkaline Phosphatase (38-126) U/L Troponin I (0.000-0.034) ng/mL Total Protein (6.3-8.2) g/dL Albumin (3.5-5.0) g/dL Urine Color Urine Appearance (Clear) Urine pH (5.0-8.0) Ur Specific [place] (1.001-1.035) Urine Protein (Negative) Urine Glucose (UA) (Negative) Urine Ketones (Negative) Urine Blood (Negative) Urine Nitrite (Negative) Urine Bilirubin (Negative) Urine Urobilinogen (<2.0) mg/dL Ur Leukocyte Esterase (Negative) Urine RBC (0-5) /hpf Urine WBC (0-5) /hpf Ur Squamous Epith Cells (0-4) /hpf Amorphous Sediment (None) /hpf Urine Mucus (None) /hpf Urine HCG, Qual (Not Detectd) 04/18/22 04/18/22 04/18/22 Range/Units 10:35 10:35 10:35 WBC (3.8-10.6) k/uL RBC (3.80-5.40) m/uL Hgb (11.4-16.0) gm/dL Hct (34.0-46.0) % MCV (80.0-100.0) fL MCH (25.0-35.0) pg MCHC (31.0-37.0) g/dL RDW (11.5-15.5) % Plt Count (150-450) k/uL MPV Neutrophils % % Lymphocytes % % Monocytes % % Eosinophils % % Basophils % % Neutrophils # (1.3-7.7) k/uL Lymphocytes # (1.0-4.8) k/uL Monocytes # (0-1.0) k/uL Eosinophils # (0-0.7) k/uL Basophils # (0-0.2) k/uL PT (9.0-12.0) sec INR (<1.2) APTT (22.0-30.0) sec Sodium 139 (137-145) mmol/L Potassium 4.1 (3.5-5.1) mmol/L Chloride 104 (98-107) mmol/L Carbon Dioxide 29 (22-30) mmol/L Anion Gap 6 mmol/L BUN 14 (7-17) mg/dL Creatinine 0.63 (0.52-1.04) mg/dL Est GFR (CKD-EPI)AfAm >90 (>60 ml/min/1.73 sqM) Est GFR (CKD-EPI)NonAf >90 (>60 ml/min/1.73 sqM) Glucose 77 (74-99) mg/dL POC Glucose (mg/dL) (70-110) mg/dL POC Glu Complaint Clerk ID Calcium 9.3 (8.4-10.2) mg/dL Total Bilirubin 0.3 (0.2-1.3) mg/dL AST 34 (14-36) U/L ALT 55 H (4-34) U/L Alkaline Phosphatase 51 (38-126) U/L Troponin I <0.012 (0.000-0.034) ng/mL Total Protein 6.9 (6.3-8.2) g/dL Albumin 4.1 (3.5-5.0) g/dL Urine Color Yellow Urine Appearance Cloudy H (Clear) Urine pH 7.0 (5.0-8.0) Ur Specific [place] 1.022 (1.001-1.035) Urine Protein Negative (Negative) Urine Glucose (UA) Negative (Negative) Urine Ketones Negative (Negative) Urine Blood Negative (Negative) Urine Nitrite Negative (Negative) Urine Bilirubin Negative (Negative) Urine Urobilinogen <2.0 (<2.0) mg/dL Ur Leukocyte Esterase Negative (Negative) Urine RBC 1 (0-5) /hpf Urine WBC 3 (0-5) /hpf Ur Squamous Epith Cells 3 (0-4) /hpf Amorphous Sediment Moderate H (None) /hpf Urine Mucus Few H (None) /hpf Urine HCG, Qual (Not Detectd) 04/18/22 Range/Units 10:35 WBC (3.8-10.6) k/uL RBC (3.80-5.40) m/uL Hgb (11.4-16.0) gm/dL Hct (34.0-46.0) % MCV (80.0-100.0) fL MCH (25.0-35.0) pg MCHC (31.0-37.0) g/dL RDW (11.5-15.5) % Plt Count (150-450) k/uL MPV Neutrophils % % Lymphocytes % % Monocytes % % Eosinophils % % Basophils % % Neutrophils # (1.3-7.7) k/uL Lymphocytes # (1.0-4.8) k/uL Monocytes # (0-1.0) k/uL Eosinophils # (0-0.7) k/uL Basophils # (0-0.2) k/uL PT (9.0-12.0) sec INR (<1.2) APTT (22.0-30.0) sec Sodium (137-145) mmol/L Potassium (3.5-5.1) mmol/L Chloride (98-107) mmol/L Carbon Dioxide (22-30) mmol/L Anion Gap mmol/L BUN (7-17) mg/dL Creatinine (0.52-1.04) mg/dL Est GFR (CKD-EPI)AfAm (>60 ml/min/1.73 sqM) Est GFR (CKD-EPI)NonAf (>60 ml/min/1.73 sqM) Glucose (74-99) mg/dL POC Glucose (mg/dL) (70-110) mg/dL POC Glu Complaint Clerk ID Calcium (8.4-10.2) mg/dL Total Bilirubin (0.2-1.3) mg/dL AST (14-36) U/L ALT (4-34) U/L Alkaline Phosphatase (38-126) U/L Troponin I (0.000-0.034) ng/mL Total Protein (6.3-8.2) g/dL Albumin (3.5-5.0) g/dL Urine Color Urine Appearance (Clear) Urine pH (5.0-8.0) Ur Specific [place] (1.001-1.035) Urine Protein (Negative) Urine Glucose (UA) (Negative) Urine Ketones (Negative) Urine Blood (Negative) Urine Nitrite (Negative) Urine Bilirubin (Negative) Urine Urobilinogen (<2.0) mg/dL Ur Leukocyte Esterase (Negative) Urine RBC (0-5) /hpf Urine WBC (0-5) /hpf Ur Squamous Epith Cells (0-4) /hpf Amorphous Sediment (None) /hpf Urine Mucus (None) /hpf Urine HCG, Qual Not Detected (Not Detectd) Disposition Clinical Impression: Syncope, Vasovagal syncope Disposition: HOME SELF-CARE Condition: Stable Additional Instructions: Please return to the emergency department if worsening symptoms of dizziness, lightheadedness, or if additional syncopal events. Is patient prescribed a controlled substance at d/c from ED?: No Referrals: Nonstaff,Physician [Primary Care Provider] - 1-2 days Time of Disposition: 12:00
--- NOTE | 2022-04-18 10:54 | XR ---
EXAMINATION TYPE: XR chest 2V DATE OF EXAM: 04/18/2022 COMPARISON: 11/12/2020 HISTORY: 26-year-old female syncope TECHNIQUE: PA and lateral views FINDINGS: The cardiomediastinal silhouette, aorta, and pulmonary vasculature are within normal limits. Lungs an d pleural spaces are clear. IMPRESSION: No acute cardiopulmonary process.
[2022-04-18 10:59] LABS: Basophils # (A) 0.1 k/uL (0-0.2); Basophils % (A) 1 %; Eosinophils # (A) 0.2 k/uL (0-0.7); Eosinophils % (A) 3 %; HCT 38.3 % (34.0-46.0); HGB 13.2 gm/dL (11.4-16.0); Lymphocytes # (A) 1.7 k/uL (1.0-4.8); Lymphocytes % (A) 29 %; MCH 31.1 pg (25.0-35.0); MCHC 34.5 g/dL (31.0-37.0); MCV 90.2 fL (80.0-100.0); Mean Platelet Volume 7.6; Monocytes # (A) 0.4 k/uL (0-1.0); Monocytes % (A) 6 %; Neutrophils # (A) 3.5 k/uL (1.3-7.7); Neutrophils % (A) 59 %; Platelet Count 382 k/uL (150-450); RBC 4.25 m/uL (3.80-5.40); RDW 11.9 % (11.5-15.5); WBC 5.9 k/uL (3.8-10.6)
[2022-04-18 11:11] LABS: Amorphous Sediment,Urine Moderate /hpf; Appearance,Urine Cloudy (Clear); Bilirubin,Urine Negative (Negative); Blood,Urine Negative (Negative); Color,Urine Yellow; Glucose,Urine (UA) Negative (Negative); Ketones,Urine Negative (Negative); Leukocyte Esterase,Urine Negative (Negative); Mucus,Urine Few /hpf; Nitrite,Urine Negative (Negative); Protein,Urine Negative (Negative); RBC,Urine 1 /hpf (0-5); Specific Gravity,Urine 1.022 (1.001-1.035); Squamous Epithelial Cell,Urine 3 /hpf (0-4); Urobilinogen,Urine <2.0 mg/dL (<2.0); WBC,Urine 3 /hpf (0-5)
[2022-04-18 11:12] LABS: ALT 55 U/L (4-34); AST 34 U/L (14-36); African American GFR (CKD) >90 (>60 ml/min/1.73 sqM); Albumin 4.1 g/dL (3.5-5.0); Alkaline Phosphatase 51 U/L (38-126); Anion Gap 6 mmol/L; Blood Urea Nitrogen 14 mg/dL (7-17); Calcium 9.3 mg/dL (8.4-10.2); Carbon Dioxide 29 mmol/L (22-30); Chloride 104 mmol/L (98-107); Glucose 77 mg/dL (74-99); Non-African American GFR(CKD) >90 (>60 ml/min/1.73 sqM); Potassium 4.1 mmol/L (3.5-5.1); Sodium 139 mmol/L (137-145); Total Bilirubin 0.3 mg/dL (0.2-1.3); Total Protein 6.9 g/dL (6.3-8.2)
[2022-04-18 11:15] LABS: INR 0.9 (<1.2); Partial Thromboplastin Time 26.9 sec (22.0-30.0); Prothrombin Time 9.9 sec (9.0-12.0)
[2022-04-18] MEDS ORDERED: ACETAMINOPHEN TAB 325 MG TAB PO STA (12:14)
[2022-04-18 12:39] VITALS: BP 134/87; PULSE 84
== END 2022-04-18 12:41 | disposition home or self-care (01) ==
LOC: EC 09:46
DX: R55 Syncope and collapse (principal); J45.909 Unspecified asthma, uncomplicated; F41.9 Anxiety disorder, unspecified; F32.A Depression, unspecified; Z79.899 Other long term (current) drug therapy; Z91.040 Latex allergy status; Z91.018 Allergy to other foods; Z88.8 Allergy status to other drugs, medicaments and biological substances
CPT/HCPCS: 36415; 71046; 80053; 81001; 81025; 84484; 85025; 85610; 85730; 93005; 96360; 96361; 99285